=== PATIENT | female | born 1945 | race Caucasian/White ===

== ENCOUNTER 2016-12-25 12:36 | Inpatient (IN) ==
[2016-12-25 13:21] LABS: MANUAL DIFF NEEDED? NO
[2016-12-25 13:28] LABS: BASO% 0.1 % (0.0-0.8); EOS# 0.02 X1000 (0.0-0.7); EOS% 0.2 % (0.0-10.0); HEMATOCRIT 40.5 % (37.0-47.0); HEMOGLOBIN 13.1 g/dL (12.0-16.0); LYMPH% 13.7 % (20.5-51.1); MCH 27.6 PG (27-31); MCHC 32.3 g/dL (33-37); MCV 85.4 FL (81-99); MONO# 0.77 X1000 (0.11-0.59); MONO% 8.8 % (1.7-9.3); MPV 10.8 FL (7.4-10.4); NEUT% 77.2 % (42.2-75.2); PLT 238 X1000 (130-400); RBC 4.74 XMIL (4.2-5.4)
[2016-12-25 13:38] LABS: INR 1.14; PROTIME 12.1 Seconds (9.2-11.7); PTT 31.3 Seconds (22.0-36.0)
[2016-12-25 14:01] LABS: ALBUMIN 3.4 g/dL (3.5-5.0); CALCIUM 9.5 mg/dL (8.8-10.2); POTASSIUM 4.9 mmol/L (3.5-5.1); TOTAL BILIRUBIN 1.06 mg/dL (0.20-1.00); TOTAL PROTEIN 6.9 g/dL (6.3-8.3)
[2016-12-25] MEDS ORDERED: PROTONIX IV ONE (14:50)
[2016-12-25] MEDS ORDERED: BENADRYL IV ONE (14:50)
[2016-12-25] MEDS ORDERED: SOLU-MEDROL IV ONE (14:50)
[2016-12-25 15:10] LABS: MANUAL DIFF NEEDED? NO
[2016-12-25] MEDS: SODIUM CHLORIDE 0.9% INJ ONE (15:10)
[2016-12-25 15:19] LABS: BASO% 0.1 % (0.0-0.8); EOS# 0.03 X1000 (0.0-0.7); EOS% 0.3 % (0.0-10.0); HEMATOCRIT 37.9 % (37.0-47.0); HEMOGLOBIN 12.6 g/dL (12.0-16.0); IMM GRAN# 0.03 X1000 (0.0-0.04); IMM GRAN% 0.3 % (0.0-0.5); LYMPH# 1.39 X1000 (1.2-3.4); LYMPH% 14.7 % (20.5-51.1); MCH 28.3 PG (27-31); MCHC 33.2 g/dL (33-37); MCV 85.2 FL (81-99); MONO# 0.84 X1000 (0.11-0.59); MONO% 8.9 % (1.7-9.3); MPV 11.1 FL (7.4-10.4); NEUT% 75.7 % (42.2-75.2); PLT 274 X1000 (130-400); RBC 4.45 XMIL (4.2-5.4)
[2016-12-25 15:31] LABS: URINE SOURCE CLEAN CATCH
[2016-12-25 15:38] LABS: URINE MICRO REVIEW NEEDED? YES
[2016-12-25 15:39] LABS: BILIRUBIN URINE SMALL (NEGATIVE); BLOOD URINE NEGATIVE (NEGATIVE); COLOR YELLOW; GLUCOSE URINE 150 mg/dL (NEGATIVE); LEUKOCYTES URINE LARGE (NEGATIVE); NITRITE URINE NEGATIVE (NEGATIVE); PROTEIN URINE 50 mg/dL (NEGATIVE); SP GRAVITY URINE 1.024; TURBIDITY URINE HAZY (CLEAR); UR EPITHELIAL CELLS <10 /HPF (<10); URINE BACTERIA 2+ /HPF; URINE CULTURE NEEDED? YES; URINE RBC <10 /HPF (<10); URINE WBC TNTC /HPF (<10); UROBILINOGEN URINE 2 mg/dL (NORMAL)
[2016-12-25 15:54] LABS: AMYLASE 38 U/L (20-200); LIPASE 13 U/L (13-60)
[2016-12-25 16:00] LABS: URINE CASTS NONE SEEN
--- NOTE | 2016-12-25 16:35 | Diag Imaging Result Doc PS360 ---
CT ABD/PELVIS W/ IV CONT ONLY - 12/25/2016 INDICATION: ABD PX TECHNIQUE: A CT dose reduction protocol was used. COMPARISON: CT chest 03/29/2016 FINDINGS: No significant infiltrates in the lung bases. There is a gigantic ventral hernia with most all of the bowel contents in a low hernia sac extending to the patient's knees. There is significant subcutaneous superficial soft tissue edema throughout this area compatible with panniculitis. No definite bowel obstruction or inflammation. No intraperitoneal free air or free fluid. 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 There are small bilateral renal cysts. There are apparent cholecystectomy changes. There are rectal resection changes. Urinary bladder and uterus are normal. There is severe degeneration throughout the spine and pelvis. IMPRESSION: 1. Gigantic hiatal hernia with all the bowel in the ventral hernia sac. 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 2. 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 Electronically signed by Hector Palma 12/25/2016 4:33 PM
[2016-12-25] MEDS ORDERED: MEFOXIN 2 GM/NS 2 GM/50 ML IVPB IV ONE (17:16)
[2016-12-25] MEDS ORDERED: NS 1,000 ML IV ONE (17:18)
--- NOTE | 2016-12-25 17:30 | PROVIDER DOCUMENTATION ---
This chart was entered by Selin Mancini Scribe, acting as scribe for Ludwig Pichardo MD. HPI-Abdominal Pain/GI Problem - General Chief Complaint: GI Bleed Stated Complaint: ABD PAIN/BLEEDING Time Seen by Provider: 12/25/16 14:08 Source: patient Allergies/Adverse Reactions: Patient Allergies Allergy/AdvReac Type Severity Reaction Status Date / Time Iodinated Contrast Media - Allergy RASH Verified 12/25/16 14:32 Oral and [IV Dye] Home Medications: Home Medication List Medication Instructions Recorded Confirmed Last Taken Type Aspirin 81 mg PO DAILY 03/28/16 12/25/16 11/15/16 History Atorvastatin Calcium [Lipitor] 40 mg PO DAILY 03/28/16 12/25/16 11/15/16 History Cholecalciferol (Vitamin D3) 5,000 unit PO DAILY 03/28/16 12/25/16 11/15/16 History [Vitamin D3] Cyanocobalamin/FA/Pyridoxine 1 each PO DAILY 03/28/16 12/25/16 11/15/16 History [Folbic Tablet] Fenofibrate [Tricor] 145 mg PO DAILY 03/28/16 12/25/16 11/15/16 History Glimepiride 4 mg PO BID 03/28/16 12/25/16 11/15/16 History Iron,Carbonyl/Ascorbic Acid [Fe C 1 each PO DAILY 03/28/16 12/25/16 11/15/16 History Tablet] Levothyroxine [Synthroid] 0.2 mg PO DAILY 03/28/16 12/25/16 11/15/16 History Metformin [Glucophage] 500 mg PO BID CC 03/28/16 12/25/16 11/15/16 History Multivitamins/Minerals [Centrum 1 each PO DAILY 03/28/16 12/25/16 11/15/16 History Silver] Enoxaparin [Lovenox] 110 mg SUBQ Q12H #24 syringe 04/17/16 12/25/16 11/15/16 Rx Insulin Detemir [Levemir] 35 unit SUBQ BID #0 insuln.pen 04/17/16 12/25/1611/15 Rx Albuterol Sulfate Inhaler 2 puff INH Q6H PRN PRN 11/15/16 12/25/16 11/15/16 History [Ventolin Hfa] Apixaban [Eliquis] 5 mg PO DAILY 11/15/16 12/25/16 11/15/16 History Azithromycin [Zithromax Z-Hi] 250 mg PO DIRECTED #1 pkg 11/15/16 12/25/16 Unknown Rx Cyanocobalamin/FA/Pyridoxine 1 each PO QHS 11/15/16 12/25/16 11/15/16 History [Folbic Tablet] Fluticasone 50 Mcg Nasal [employer] 1 spray TASHIA PRN PRN 11/15/16 12/25/16 11/15/16 History [Flonase] Furosemide [Lasix] 40 mg PO DAILY #30 tablet 11/15/16 12/25/16 Unknown Rx [place]-3 Fatty Acids [Fish Oil] 1,000 mg PO BID 11/15/16 12/25/16 11/15/16 History Metoprolol [Lopressor] 12.5 mg PO DAILY 12/25/16 12/25/16 Unknown History - History of Present Illness-ABD Nature of Presenting Problems: 71 Y/O F present to the ER with the complain of abd bleeding started yesterday. pt states that she has large hernia with ileostomy that they think is draining blood. pt states that she had lower abd cramping. pt states that she is on blood thinner medication. pt denies any other symptoms. Abdominal Pain Onset Location: reports: other (stomach bleeding) Quality of Pain: reports: cramping (lower abd) Onset/Duration: reports: 2 days ago Associated Symptoms: reports: other (abd cramps) Review of Systems - Adult - REVIEW OF SYSTEMS - ADULT Constitutional: reports: no symptoms reported Eyes: reports: no symptoms reported Ears, Nose, Mouth & Throat: reports: no symptoms reported Cardiovascular: reports: no symptoms reported Respiratory: reports: no symptoms reported Gastrointestinal: reports: abdominal pain, other (stomach bleeding and hernia). denies: diarrhea, vomiting Genitourinary: reports: no symptoms reported Musculoskeletal: reports: no symptoms reported Integumentary: reports: no symptoms reported Neurological: reports: no symptoms reported Psychiatric: reports: no symptoms reported Endocrine: reports: no symptoms reported Hematologic/Lymphatic: reports: no symptoms reported Allergic/Immunologic: reports: no symptoms reported All Other Systems: Reviewed and Negative Past History - Adult - PAST MEDICAL HISTORY-ADULT Review of Records: reports: Old Records Reviewed, Nursing Assessment Review Major Childhood Illnesses: reports: denies history Cardiovascular: reports: blood clots (dvt), HTN, hyperlipidemia Respiratory: reports: denies history Gastrointestinal: reports: GERD, other (hernia, stoma) Obstetrical/Gynecological: reports: denies history Genitourinary: reports: denies history Musculoskeletal: reports: denies history Neurological: reports: other (diabetic neuropathy) Endocrine/Immune: reports: Diabetes Other Conditions: reports: denies history - PRIOR SURGERIES/PROCEDURES Surgical/Procedure History: reports: tonsillectomy, hernia repair, bowel surgery (multiple), other (ileostomy) - PRIOR HOSPITALIZATIONS Prior Hospitalizations: reports: for other non-related - IMMUNIZATION STATUS Childhood Immunizations: See Nurse Assessment Flu Vaccine: See Nurse Assessment - FAMILY HISTORY Family History: reviewed, not pertinent Physical Exam-General - PHYSICAL EXAM-ADULT Initial Vital Signs Reviewed: Yes - CONSTITUTIONAL General Appearance: appears well, alert - EYES Eyes: pale conjunctivae. negative: conjuctival exudate - HEAD, EARS, NOSE, MOUTH & THROAT HENMT: moist mucous membranes, TMs normal - NECK Neck: non-tender, full range of motion, supple - RESPIRATORY Respiratory: lungs clear, normal breath sounds - CARDIOVASCULAR Cardiovascular: regular rate, rhythm, no edema - GASTROINTESTINAL (ABDOMEN) Abdominal Exam: non tender, soft, hernia, other (stomach bleeding snf loer abd cramping) - MUSCULOSKELETAL Back Exam: no CVA tenderness, no vertebral tenderness Extremity: no pedal edema, no calf tenderness - SKIN Integumentary: normal color, normal turgor, warm/dry - NEUROLOGIC Neurologic: grossly normal, no motor/sensory deficits - PSYCHIATRIC Psych/Mental Status: normal mood/affect, normal thought content, normal thought process, oriented x 3 Progress - PLAN OF CARE/RESULTS Progress/Plan/Lab Results: Vital Signs - 8 hr 12/25/16 12:48 Temperature 98.2 F Pulse Rate 90 Respiratory Rate 20 Blood Pressure 140/63 O2 Sat by Pulse Oximetry 96 Laboratory Results - last 24 hr 12/25/16 12/25/16 12/25/16 13:05 13:05 13:05 WBC 8.76 RBC 4.74 Hgb 13.1 Hct 40.5 MCV 85.4 MCH 27.6 MCHC 32.3 L RDW Std Deviation 14.7 H Plt Count 238 MPV 10.8 H Immature Gran % (Auto) 0.0 Neut % (Auto) 77.2 H Lymph % (Auto) 13.7 L [place] % (Auto) 8.8 Eos % (Auto) 0.2 Baso % (Auto) 0.1 Immature Gran # (Auto) 0.00 Neut # (Auto) 6.76 H Lymph # (Auto) 1.20 Pitt # (Auto) 0.77 H Eos # (Auto) 0.02 Baso # (Auto) 0.01 PT 12.1 H INR 1.14 PTT (Actin FS) 31.3 Sodium 135 L Potassium 4.9 Chloride 95 L Carbon Dioxide 26 Anion Gap 14 BUN 35 H Creatinine 1.3 H Estimated GFR/1.73 m2 40 BUN/Creatinine Ratio 27 Glucose 286 H Calculated Osmolality 288 Calcium 9.5 Total Bilirubin 1.06 H AST 21 ALT 13 Alkaline Phosphatase 47 Total Protein 6.9 Albumin 3.4 L Globulin 3.5 Albumin/Globulin Ratio 1.0 Blood Type Antibody Screen 12/25/16 13:05 WBC RBC Hgb Hct MCV MCH MCHC RDW Std Deviation Plt Count MPV Immature Gran % (Auto) Neut % (Auto) Lymph % (Auto) Pitt % (Auto) Eos % (Auto) Baso % (Auto) Immature Gran # (Auto) Neut # (Auto) Lymph # (Auto) Pitt # (Auto) Eos # (Auto) Baso # (Auto) PT INR PTT (Actin FS) Sodium Potassium Chloride Carbon Dioxide Anion Gap BUN Creatinine Estimated GFR/1.73 m2 BUN/Creatinine Ratio Glucose Calculated Osmolality Calcium Total Bilirubin AST ALT Alkaline Phosphatase Total Protein Albumin Globulin Albumin/Globulin Ratio Blood Type O NEGATIVE Antibody Screen NEGATIVE Orders Category Date Time Status Saline Loc DIRECTED Care 12/25/16 14:26 Active NPO Diet 12/25/16 14:[address] ABD/PELVIS W/ IV CONT ONLY [CT] Stat Exams 12/25/16 14:27 Ordered AMYLASE [CHEM] Stat Lab 12/25/16 14:26 Uncollected CBC WITH ELECTRONIC DIFF [HEME] Stat Lab 12/25/16 13:05 Completed CBC WITH ELECTRONIC DIFF [HEME] Stat Lab 12/25/16 14:26 Uncollected COMPREHENSIVE METABOLIC PANEL [CHEM] Stat Lab 12/25/16 13:05 Completed LIPASE [CHEM] Stat Lab 12/25/16 14:26 Uncollected OCCULT BLOOD SCREENING [STOOL] Stat Lab 12/25/16 14:26 Uncollected PROTIME WITH INR [COAG] Stat Lab 12/25/16 13:05 Completed PTT [COAG] Stat Lab 12/25/16 13:05 Completed TYPE & SCREEN [BBK] Stat Lab 12/25/16 13:05 Completed URINALYSIS W/POSS RFLX CULT-1 [URINALYSIS] Stat Lab 12/25/16 14:26 Uncollected Result Diagrams: 12/25/16 15:02 12/25/16 13:05 - REASSESSMENT Reassessment #1 Time Reassessed: 17:27 (although pt stating some mild discomfort it is intermittent i spent about 10 min at the bedside with pt and son expressing to them the importance of not eating however they insist she needs to eat i requested that we wait to see the surgeon first however family is insistent on having her eat pt will check pts blood sugar an maintain npo for now. surgeon dr mccormack will come to the bedside to also discuss with the family i handed off care for admission to hospitalist service will be accepted by dr begum. i dw with admitting livestock counter that pt does not want to adhere to npo requests and that she should be seen quickly. 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 - CONSULTS/PCP/HOSPITALIST Notification #1 *Consult/PCP/Hospitalist*: Dr. Mccormack Time Discussed: 17:12 Reason/Comments: Dr. Pichardo consulted about pt to Dr. Mccormack #2 Consult: Dr. Begum Time Discussed: 17:21 Reason/Comments: Dr. Pichardo discussed about the Pt to Consult Disposition: Admit Departure - Departure Date of Disposition Decision: 12/25/16 Time of Disposition Decision: 17:29 DIAGNOSIS: Small bowel ischemia Disposition: ADMITTED INPATIENT 09 Certified Medical Emergency: Emergent Condition: Fair Referrals and Follow-Ups: None,PCP [Primary Care Provider] - - Critical Care Note This patient required my direct & personal management of CC.: Yes Total Time (mins): 75 Critical Care Statement: This patient required my direct personal management to treat or rule out processes, the absence of which, could potentiallly result in sudden, clinically significant life or limb threatening deterioration. This chart was documented by the indicated scribe, (Selin Mancini Scribe) and accurately reflects the services I performed and decisions made by me, Ludwig Pichardo MD, as attested by the provider's signature.
--- NOTE | 2016-12-25 20:01 | HISTORY AND PHYSICAL ---
HISTORY OF PRESENT ILLNESS: This is a 71-year-old who stayed for 2 days who has had some pain around her right-sided ileostomy and then she noted ileostomy bag with dark blood. She really does not report any fever or chills, although she says she has been cold, I think it is mainly the pain and the blood in the ileostomy bag. Son was there. He says at least 2 previous time she has had a ruptured small bowel. This was after the ileostomy. She has had a total colectomy because of ulcerative colitis. I see where she was admitted with altered mental status back in March 2016. PAST MEDICAL HISTORY: 1. Hypertension. 2. Hyperlipidemia. 3. Gastroesophageal reflux disease. 4. Diabetes mellitus. 5. Diabetic neuropathy. 6. Abdominal hernia. 7. Thyroid disease. 8. Deep venous thrombosis. PAST SURGICAL HISTORY: 1. Tonsillectomy. 2. Hernia repair. 3. Multiple bowel surgeries. 4. Ileostomy. Patient received ileostomy after total colectomy for ulcerative colitis. SOCIAL HISTORY: Patient lives by herself. She does have attentive family. She is able to get around and walk and live independently. FAMILY HISTORY: Positive for emphysema, heart disease, father of heart attack, asthma in mother. Two of her brothers have heart disease and heart attack. ALLERGIES: Patient reports no known drug allergies. REVIEW OF SYSTEMS: General: Did not report any weight gain or loss. No fever or chills. HEENT: Unremarkable. Respiratory: No increased work of breathing or dyspnea. Cardiovascular: No chest pain or tachy palpitation. GI/: The pain around the right lower quadrant around her ileostomy bag and the dark stool. She was concerned last 2 days that she was getting obstruction. There was not as much flow through the ileostomy bag. PHYSICAL EXAMINATION: VITAL SIGNS: Temperature 98.2 degrees, pulse 90, respirations 18, blood pressure 165/90. HEENT: Pupils equal, round. LUNGS: Clear in all lung miller. CARDIOVASCULAR: Regular rhythm and rate without murmur or S3. ABDOMEN: Soft. SKIN: Warm and dry. Weight 243 pounds. Height 5 feet 4 inches. LABORATORY: White blood cell count 9460, hematocrit 37, platelet count 274,000. Sodium 135, potassium 4.09 chloride 95, BUN 35, creatinine 1.3. Calcium 9.5, AST 21, ALT 13, alkaline phos 47, albumin 3.4, ProTime 12.1, PTT is 31. Urinalysis: Wdk-zeubimtd-ca-count white blood cells, less than 10 red blood cells. IMAGING: Abdominal and pelvic CT: Gigantic hiatal hernia with all the bowel in the ventral hernia sac. Significant overlying panniculitis in this area and severe mesenteric artery vascular disease, probable stenosis. The bowel contents and in the lower sac extend to the patient's knees there is significant subcutaneous superficial soft tissue edema throughout the area compatible with panniculitis. No definite bowel obstruction or inflammation. No intraperitoneal free air. There is advanced vascular disease. Superior mesenteric artery, moderate to severe stenosis way up in the hernia sac. There are small bilateral renal cysts. She apparently had a cholecystectomy. They are rectal resection changes noted. Urinary bladder and uterus are normal. Severe degeneration through the spine and pelvis. ASSESSMENT AND PLAN: 1. Abdominal pain, large hiatal hernia, ventral hernia. Not definitive blockage at this point. Ask General Surgery. Dr. Shayne Duggan will evaluate. I do not know if there is anything surgical needs to be done at this point. She is not hurting and requesting food. We are going to hold off on that. 2. Morbid obesity. Large ventral hernia and panniculitis. I think we need to put her on antibiotics. 3. She has too numerous to count white blood cells. She has not been symptomatic per se. But we are going to put her on antibiotics for the panniculitis as well. 4. Ulcerative colitis, status post total colectomy with ileostomy bag and blood in the ileostomy. 5. Apparently recent atrial fibrillation. Dr. Crawford is following her. She is on Eliquis. I think we are going to have to hold that at this point as we debate whether she is going to require invasive surgery. 6. Diabetes mellitus type 2 with diabetic neuropathy. 7. History of thyroid disease. Primary hypothyroidism. We will check a T4 and TSH. 8. Hypertension. 9. History of deep venous thrombosis. Apparently, she has had multiple bowel surgeries and small bowel obstruction in the past. 10. Review of her laboratory, hematocrit is stable at 37. Electrolytes unremarkable. Liver functions unremarkable. Renal function: Creatinine 1.3. Looking back at her creatinines, I think baseline is 0.8. She runs around 0.8-1. We will give her normal saline. I think we better run it in about 125 mL an hour. cc: Jose Cruz Begum MD
[2016-12-25] MEDS ORDERED: FLONASE NAS PRN (20:03)
[2016-12-25] MEDS ORDERED: TYLENOL PO PRN (20:03)
[2016-12-25] MEDS ORDERED: VENTOLIN HFA INH PRN (20:03)
[2016-12-25] MEDS ORDERED: ZOFRAN IV PRN (20:03)
[2016-12-25] MEDS ORDERED: SODIUM CHLORIDE 0.9% INJ PRN (20:03)
[2016-12-25] MEDS: PROTONIX 80 MG in NS 80 ML IV SCH (22:52)
[2016-12-25] MEDS: NS 1,000 ML IV SCH (22:53)
[2016-12-25] MEDS: LEVEMIR SUBQ SCH (22:53)
[2016-12-25] MEDS: HUMULIN R SUBQ SCH (22:53)
[2016-12-25] MEDS: ZOSYN 3.375 GM/NS 3.375 GM/50 ML IVPB IV SCH (23:01)
[2016-12-26 05:11] LABS: MANUAL DIFF NEEDED? NO
[2016-12-26] MEDS: ZOSYN 3.375 GM/NS 3.375 GM/50 ML IVPB IV SCH ×4 (05:12→22:32)
--- NOTE | 2016-12-26 05:25 | CONSULTATION ---
DATE OF CONSULTATION: 12/25/2016 HISTORY OF PRESENT ILLNESS: A 71-year-old female with multiple medical issues. From a surgical standpoint, she has a very complicated history. She has had a total colectomy with end ileostomy 20+ years ago in her early 40s. She has developed complications related to that requiring bowel resections from incarcerated hernias and multiple, at least 2, excised bowel resections. She has had now a very large loss of domain peristomal hernia with an ileostomy within the hernia itself. She has had skin issues related to panniculitis in the past, but has been doing okay over last couple of days. She said Friday, she begin to feel full in her epigastrium. She made herself NPO. She, over the last 24 hours, developed bloody ostomy output, kind of dark maroon coffee- ground. Her son was notified and he brought her to the emergency department. A CT scan was obtained that showed no real acute findings other than a large hernia and edema in the abdominal wall. She has been hemodynamically stable in the emergency department and hematocrit checked x2 has been stable. She states she has been urinating normally. Mental status has been fine. She is not really feeling dizzy. PAST MEDICAL HISTORY: 1. Diabetes. 2. History of DVT and pulmonary embolus, on chronic anticoagulation with Eliquis. 3. She also has chronic urinary tract infections. 4. History of pneumonia. 5. Ulcerative colitis. 6. Hypertension. 7. Recent bradycardia and has been evaluated by Dr. Crawford. PAST SURGICAL HISTORY: She had total colectomy with end ileostomy and then multiple operations for complications associated with this concluding bowel resections that has left her with a loss of domain hernia. SOCIAL HISTORY: [place]. Her son is nearby and looks over her but he does not live with her. No tobacco, alcohol or drugs. MEDICATIONS: She does take Eliquis for DVTs. REVIEW OF SYSTEMS: Otherwise 10-point negative other than what is mentioned in the HPI. She denies any NSAID use. PHYSICAL EXAMINATION: Vital Signs: Temperature is 98.2 degrees. Pulse has been in the 90s but on my exam at this time, it was 60s to 70s. Blood pressure is 158/83, O2 saturation 94% on room air. Weight is 243 pounds, 5 feet 4 inches. General: She is alert, sitting in chair in no acute distress. HEENT: No scleral icterus. Abdomen: There is a large panniculus with a very large loss of domain hernia that extends mostly to the right side of midline. On the very apex of this, is an ostomy appliance with an ileostomy. The mucosa, what can be visualized is pink. The stool is, for the most part, brown but there is a maroon-like coffee-ground discoloration to it. Integument: Otherwise warm and dry. I do not see that there is some lower extremity edema. On the abdominal wall, there are no skin changes. It is chronically thickened but it is not red. DIAGNOSTIC DATA: White count 9, hematocrit 37.9, it was 40.8 on arrival. Platelets 274,000. INR is 1.14. Sodium is 135. Creatinine is 1.3, this is near baseline, this is what it was a couple of weeks ago. Bilirubin is 1.06. Transaminases are normal. Albumin is 3.5, lipase 13. Leukocytes are large. There is glucose in her urine. CT scan confirms a very large loss of domain with edema of the abdominal wall. There is calcific disease in the celiac and SMA distribution but flow is maintained here. No free air or free fluid. No evidence of bowel obstruction or other masses. ASSESSMENT/PLAN: This is a 71-year-old female with a large loss of domain hernia, history of ulcer colitis now with a gastrointestinal bleed. From a surgical standpoint, any abdominal operation would be catastrophic and likely unsurvivable. She would not tolerate hernia repair and this would require complete abdominal wall reconstruction and she would not be a good candidate for this. Regarding her gastrointestinal bleed, I suspect that this is complicated by her Eliquis and is likely upper gastrointestinal in origin given the appearance of her hematochezia. She has had some epigastric fullness. Would recommend treating her with: 1. Antibiotics for her urinary tract infection with Zosyn. 2. Would recommend starting at least b.i.d. proton pump inhibitor intravenously if not proton pump inhibitor drip with Carafate. I would recommend strict nothing by mouth. I would also engage Gastroenterology medicine. If she were to continue to bleed, she will need upper endoscopy. I think a scope through her ostomy would be wrought with complication and be very difficult and unrevealing, but I do suspect that if there is a lesion causing this, it would be more gastric or duodenal in etiology and this may ultimately need to be looked at. I have discussed the plan in detail and at length for greater than 30 minutes with the son and the patient. I do not see any changes to the skin of the abdominal wall and her ostomy appears well perfused. Speaking with her, she does not give a classic history for chronic mesenteric ischemia and I think this is an incidental finding. Lactic acid is pending but will follow this, and I do not think this contributes to her acute process right now. Will continue to follow along. Plans are being made to admit to the medicine service. Recommend engaging Gastroenterology medicine as well to be on board for possible esophagogastroduodenoscopy. Of note, her son does have a history of Helicobacter pylori and brought this to our attention as possible that treating empirically for this, but we can check the non-endoscopic testing for this as well to confirm or refute. cc: Niles Duggan MD
[2016-12-26 05:27] LABS: EOS# 0.01 X1000 (0.0-0.7); EOS% 0.2 % (0.0-10.0); HEMATOCRIT 34.6 % (37.0-47.0); HEMOGLOBIN 11.2 g/dL (12.0-16.0); LYMPH# 1.13 X1000 (1.2-3.4); LYMPH% 18.4 % (20.5-51.1); MCH 27.7 PG (27-31); MCHC 32.4 g/dL (33-37); MCV 85.4 FL (81-99); MONO# 0.53 X1000 (0.11-0.59); MONO% 8.6 % (1.7-9.3); MPV 11.3 FL (7.4-10.4); NEUT% 72.8 % (42.2-75.2); PLT 243 X1000 (130-400); RBC 4.05 XMIL (4.2-5.4)
[2016-12-26 05:29] LABS: INR 1.11; PROTIME 11.7 Seconds (9.2-11.7); PTT 29.7 Seconds (22.0-36.0)
[2016-12-26 05:46] LABS: ALBUMIN 3.2 g/dL (3.5-5.0); CALCIUM 8.7 mg/dL (8.8-10.2); MAGNESIUM 1.8 mg/dL (1.5-2.7); POTASSIUM 4.4 mmol/L (3.5-5.1); TOTAL BILIRUBIN 0.6 mg/dL (0.20-1.00); TOTAL PROTEIN 5.6 g/dL (6.3-8.3)
[2016-12-26 06:41] LABS: FERRITIN 87 ng/mL (13-150); FREE T4 1.32 ng/dL (0.93-1.70)
[2016-12-26] MEDS: PROTONIX 80 MG in NS 80 ML IV SCH (08:09)
[2016-12-26] MEDS: SYNTHROID IV SCH (08:11)
[2016-12-26] MEDS: HUMULIN R SUBQ SCH ×4 (08:11→22:30)
[2016-12-26] MEDS: NS 1,000 ML IV SCH ×3 (08:13→22:29)
--- NOTE | 2016-12-26 08:42 | PROGRESS NOTE ---
DATE: 12/26/2016 SUBJECTIVE: Ms. Zimmerman says she feels fine, not hurting anywhere. Content in the ileostomy bag does not appear to be maroon; it appears to be a more normal color. She is requesting ice chips and requesting food. OBJECTIVE: Vital signs: Temperature is 97.7 degrees, pulse 74, respirations 18, blood pressure 156/73. Lungs: Clear in all lung miller. Cardiovascular exam: Regular rhythm and rate without murmur or S3. Abdomen: Soft. Skin: Warm and dry. Weight: 242 pounds. : Urine output 1200 mL. LAB: White count 6150, hematocrit 34, platelet count 243,000. Sodium 136, potassium 4.4, chloride 98. BUN 34, creatinine 1.4. Blood sugar 301, 209 and 231. ASSESSMENT AND PLAN: 1. A large loss of domain hernia, history of ulcerative colitis. Ulcerative colitis now with gastrointestinal bleed. From a surgical standpoint, any operation would be catastrophically and unlikely unsurvivable, would not tolerate hernia repair and require complete abdominal wall reconstruction, which she is not a good candidate. So continue antibiotics. I suspect the bleeding may be coming from the stomach or duodenum. We will keep her on a proton pump inhibitor, and we will give her some Carafate. We will get gastroenterology medicine to see if an upper esophagogastroduodenoscopy is going to be necessary. 2. Pain around the ileostomy and some panniculitis. Less tender now and is not hurting. I suspect she experiences some torsion in that small bowel at times. We will continue intravenous antibiotics. She is on a Protonix drip now. I understand that we are out of Protonix and there is a limited supply. We will see if we can stop the Protonix drip and just do the Protonix 40 mg intravenous every 12 hours. Put her on some clear liquids and ice chips. Continue intravenous fluids right now at 125. I think I will cut them down to 85 mL an hour. 3. Diabetes mellitus type 2. We will follow pattern sugars. cc: Jose Cruz Begum MD
[2016-12-26] MEDS ORDERED: INSULIN PEN NEEDLES ONE (09:32)
[2016-12-26] MEDS: LEVEMIR SUBQ SCH ×2 (09:34→22:30)
--- NOTE | 2016-12-26 10:13 | PROGRESS NOTE ---
DATE: 12/26/2016 SUBJECTIVE: Feels well. No more bleeding. Ostomy continues to function normally. OBJECTIVE: Vital Signs: Temperature is 97.7 degrees, pulse 74, blood pressure 156/73. Oxygen saturation 98% on room air. General: She is alert, in no acute distress. Ostomy is pink, viable. No significant erythema of her panniculus. Some bilious colored stool in the bag. No blood. LABORATORY DATA: White count 6, hematocrit down to 34, platelets are 243,000, creatinine is 1.1. Glucose 209. ASSESSMENT/PLAN: This is a 71-year-old female with multiple medical issues, a large hernia, presented with gastrointestinal bleed. Suspect upper GI in origin. This is resolved with PPI drip overnight and Carafat, zosyn for a urinary tract infection. Continue to follow her along. If she were to rebleed, she will need upper endoscopy. Briefly mentioned this doctor Dr. Dawkins. He is waiting. Need to make a decision about her Eliquis. Would recommend holding this. If it is purely some questionable history of hypercoagulable disorder and DVT, she is seen by Dr. Santos in the past, may be worthwhile getting her to weigh in on the role of this, as is I think it was soft indication previously, and there is also some question of atrial fibrillation. Will continue to follow along. cc: Niles Duggan MD [facility]
[2016-12-26] MEDS: PROTONIX IV SCH (22:29)
[2016-12-27] MEDS: ZOSYN 3.375 GM/NS 3.375 GM/50 ML IVPB IV SCH ×4 (05:49→22:36)
[2016-12-27] MEDS: SYNTHROID IV SCH (06:24)
[2016-12-27] MEDS: HUMULIN R SUBQ SCH ×4 (06:24→20:35)
--- NOTE | 2016-12-27 08:55 | PROGRESS NOTE ---
DATE: 12/27/2016 SUBJECTIVE: She feels much better. No abdominal pain. She is tolerating liquids well. The color of the liquid stool in her ileostomy bag is a little humanities coordinator. I do not see any gross blood. The area around the ileostomy, the panniculitis, seems to be less intense and irritated. PAST MEDICAL HISTORY: 1. hypertension. 2. Hyperlipidemia. 3. Gastroesophageal reflux disease. 4. Diabetes mellitus. 5. Diabetic neuropathy. 6. Large abdominal ventral hernia. 7. Thyroid disease or hypothyroidism. 8. She has had a history of deep venous thrombosis. PHYSICAL EXAM: Vital Signs: On exam today she is afebrile with temp 97.5 degrees, pulse 66, respirations 20, blood pressure 161/82. Lungs: Clear in all lung miller. Cardiovascular exam: Regular rhythm and rate without murmur or S3. Abdomen: Soft. Skin: Warm and dry. : Urine output 700 mL. LAB: Reviewed from yesterday: Hematocrit stable at 34. Blood sugars 231, 232 and then 74. ASSESSMENT AND PLAN: 1. Large loss of domain hernia, history of ulcerative colitis, status post total colectomy and end ileostomy. She has had multiple operations in [place], which left her with this large loss of domain hernia. A scope through the ostomy would be fraught with lots of complications, very difficult and probably unrevealing. There is question on whether esophagogastroduodenoscopy should be done. I think at this point we will continue proton pump inhibitor and probably continue Carafate. We will advance her to a soft gastrointestinal diet. If she continues to bleed, we will need to pursue upper endoscopy. 2. The question of blood thinner. Apparently she has had lots of trouble with venous insufficiency and lower extremity blood clots. At this point, we are holding the blood thinner, but I think we are going to want to probably restart it, and she probably will be on proton pump inhibitors with that for an extensive period of time. If we have further bleeding, I think we will have to make that hard decision of stopping the blood thinner. She was on Coumadin for awhile and that was very difficult for them. She is on Eliquis now, just 5 mg daily. We will continue to hold that for now. Advance her to soft gastrointestinal diet. She is getting Protonix 40 mg intravenous every 12 hours right now, and we will put her on Carafate 1 g 4 times a day. We will check the ileostomy for blood. 3. Morbid obesity. 4. Diabetes mellitus type 2. Continue pattern sugars. Sliding scale. 5. History of hypertension. Blood pressure well controlled. 6. History of hypothyroidism. Appears to be euthyroid. cc: Jose Cruz Begum MD
[2016-12-27] MEDS: LEVEMIR SUBQ SCH ×2 (09:00→20:35)
[2016-12-27] MEDS: CARAFATE PO SCH ×4 (09:00→20:35)
[2016-12-27] MEDS: NS 1,000 ML IV SCH ×2 (11:45→22:35)
[2016-12-27] MEDS: PROTONIX IV SCH ×2 (11:46→22:36)
[2016-12-27] MEDS: SODIUM CHLORIDE 0.9% INJ ONE (11:46)
--- NOTE | 2016-12-27 18:04 | PROGRESS NOTE ---
DATE: 12/27/2016 SUBJECTIVE: No events. It does not sound like any bleeding overnight. OBJECTIVE: Vital signs: She is afebrile. No tachycardia. Blood pressure 152/66. Oxygen saturation 97% on room air. General: She is alert in no acute distress. She was getting a bath this morning. LABORATORY DATA: Glucose 165. ASSESSMENT AND PLAN: This is a 71-year-old female with large loss of domain hernia in the ileostomy presenting with a GI bleed. It appears to have clinically resolved. She remains hemodynamically stable. Will continue to follow along. If she develops rebleeding, she will need an EGD from above. Will continue to monitor her hematocrit. cc: Niles Duggan MD
[2016-12-28] MEDS: ZOSYN 3.375 GM/NS 3.375 GM/50 ML IVPB IV SCH ×4 (04:29→22:09)
[2016-12-28 05:16] LABS: MANUAL DIFF NEEDED? NO
[2016-12-28 05:18] LABS: BASO% 0.6 % (0.0-0.8); EOS# 0.44 X1000 (0.0-0.7); EOS% 8.9 % (0.0-10.0); HEMATOCRIT 32.9 % (37.0-47.0); HEMOGLOBIN 10.6 g/dL (12.0-16.0); LYMPH# 1.28 X1000 (1.2-3.4); LYMPH% 25.9 % (20.5-51.1); MCH 27.8 PG (27-31); MCHC 32.2 g/dL (33-37); MCV 86.4 FL (81-99); MONO# 0.62 X1000 (0.11-0.59); MONO% 12.5 % (1.7-9.3); MPV 10.2 FL (7.4-10.4); NEUT% 52.1 % (42.2-75.2); PLT 261 X1000 (130-400); RBC 3.81 XMIL (4.2-5.4)
[2016-12-28 05:49] LABS: AGAP 9; BUN 14 mg/dL (8-22); CALCIUM 8.5 mg/dL (8.8-10.2); CHLORIDE 108 mmol/L (98-107); COSMO 287; POTASSIUM 3.4 mmol/L (3.5-5.1); SODIUM 145 mmol/L (136-145); TCO2 28 mmol/L (25-35)
[2016-12-28] MEDS: SYNTHROID IV SCH (06:22)
[2016-12-28] MEDS: HUMULIN R SUBQ SCH ×4 (06:35→20:47)
--- NOTE | 2016-12-28 08:26 | PROGRESS NOTE ---
DATE: 12/28/2016 SUBJECTIVE: Ms. Zimmerman states she is feeling better. She was putting a new ileostomy bag on. The area around the ventral hernia and ileostomy is much less red. She says she feels much better. She is tolerating a soft diet. No pain. No nausea. OBJECTIVE: Her temperature is 97.6 degrees, pulse 62, respirations 17, blood pressure 145/74. CVP less than 6 cm. Lungs are clear, anterolateral and posterior. Cardiovascular: Regular rhythm and rate without murmur or S3. Abdomen soft. Her ventral hernia and pendulum nontender. Ileostomy site looks good. Urine output 2600 mL. LABORATORY DATA: White count 4950, hematocrit 32, platelet count 261,000. Chemistries: Sodium 145, potassium 3.4, chloride 108. BUN 14, creatinine 0.9, blood sugar 335, 332, and 59. ASSESSMENT AND PLAN: 1. Large loss of domain hernia in the ileostomy presenting with gastrointestinal bleed that appears to be clinically resolving. Doing much better. She remains hemodynamically stable, comfortable. She is tolerating a soft diet. 2. Question of blood thinner, I think we will continue doing the Eliquis and restart it. I think she was just taking 5 mg once a day. She has had previous trouble with chronic venous insufficiency and deep venous thrombosis in the lower extremities. I do not think she will tolerate being off of the blood thinner. 3. Morbid obesity. 4. Diabetes mellitus, type 2. Sugar is under good control. 5. History of hypertension. 6. History of hypothyroidism. REVIEW OF LABORATORY DATA: They gave her a little bit of potassium. Blood count stable. Hematocrit 32. PLAN: Increase her activity, have her walk around some. Hopefully, we can get her home on Friday. We will watch her through today and tomorrow. She is on Carafate 1 g 4 times a day. I have her on Zosyn 3.375 mg IV q.6 hours. She had a little bit of panniculitis when she came in. I think I will continue that. She gets Synthroid 150 mcg daily, fluticasone and albuterol. cc: Jose Cruz Begum MD
[2016-12-28] MEDS ORDERED: INSULIN PEN NEEDLES ONE (08:27)
--- NOTE | 2016-12-28 08:27 | PROGRESS NOTE ---
DATE: 12/28/2016 OBJECTIVE: No events. She feels very well, no more bleeding, no pain. OBJECTIVE: Vital signs: No fevers, no tachycardia. Pulse in the 60s, blood pressure 145/75, oxygen saturation 97% on room air. General: She is alert. Abdomen: Panniculus and hernia are stable. Ostomy is pink, viable, with nonbloody stool in the bag. LABORATORY DATA: White count is 4, hematocrit is 32, and this has been stable. Creatinine is 0.9. Hematocrit was 34 previously. ASSESSMENT AND PLAN: 1. A 71-year-old female with a very large hernia and ileostomy. At this point, I think it would be reasonable to advance her diet. 2. I think she needs to be off anticoagulation for a period of time if this is felt safe from the hospitalist service. In regards to the DVT, we could repeat a lower extremity ultrasound to examine this to see if she has any residual thrombus, but if it is for atrial fibrillation, it may be reasonable to avoid, as GI bleed could be quite complicated in her going forward. If she were to rebleed, she most definitely would need an EGD to look for an upper GI source. Otherwise, she has resolved this quickly with PPI and Carafate therapy. Will continue to follow along. cc: Niles Duggan MD
[2016-12-28] MEDS: LEVEMIR SUBQ SCH ×2 (08:48→20:47)
[2016-12-28] MEDS: NS 1,000 ML IV SCH ×2 (08:48→22:09)
[2016-12-28] MEDS: CARAFATE PO SCH ×4 (08:49→20:47)
[2016-12-28] MEDS: PROTONIX IV SCH ×2 (10:58→22:08)
[2016-12-29] MEDS: ZOSYN 3.375 GM/NS 3.375 GM/50 ML IVPB IV SCH (04:35)
[2016-12-29] MEDS: SYNTHROID IV SCH (06:21)
[2016-12-29] MEDS: HUMULIN R SUBQ SCH ×4 (06:21→20:13)
[2016-12-29] MEDS ORDERED: SYNTHROID PO SCH (09:00)
[2016-12-29] MEDS: LIPITOR PO SCH (09:31)
[2016-12-29] MEDS: ICAR-C PO SCH (09:32)
[2016-12-29] MEDS: CENTRUM SILVER PO SCH (09:32)
[2016-12-29] MEDS: PROTONIX PO SCH ×2 (09:32→20:12)
[2016-12-29] MEDS: FOLTX PO SCH (09:32)
[2016-12-29] MEDS: CARAFATE PO SCH ×4 (09:32→20:12)
[2016-12-29] MEDS: ELIQUIS PO SCH (09:32)
[2016-12-29] MEDS: LEVEMIR SUBQ SCH ×2 (09:36→20:13)
[2016-12-29] MEDS: NS 1,000 ML IV SCH ×2 (09:36→20:12)
--- NOTE | 2016-12-29 09:56 | PROGRESS NOTE ---
DATE: 12/29/2016 SUBJECTIVE: Erasmo feels much better. She did slide down on the side of the bed yesterday but she said she did not hurt herself and she was fine. Did not know what all the fuss was about. The stool in her colostomy is brown, light brown and no sign of blood. OBJECTIVE: Vital signs: She remains afebrile, temp 98.5 degrees, pulse 70, respirations 18, blood pressure 146/63. Neck: CVP is less than 6 cm. Lungs: Clear in all lung miller. Cardiovascular: Regular rhythm and rate without murmur or S3. Abdomen: Soft. Large ventral hernia with ileostomy. We have her on a soft diet. I think we can advance it to a regular diet and see how we do. No sign of bleeding at this point. I suspect the bleeding was maybe some gastritis, possibly even peptic ulcer. LAB: Hematocrit is stable at 32, hemoglobin 10, MCV is 86. We will keep her on some iron. Says her breathing is better. She thinks maybe it is from the adjustment of medications. Blood sugars have been running around 280-396, so kind of bouncing around a little bit. ASSESSMENT AND PLAN: 1. Large loss of domain hernia and ileostomy, presenting with gastrointestinal bleed; suspect upper gastrointestinal from the stomach. It seems to have resolved. Hematocrit is stable. Will keep her on iron. 2. Question blood thinner. I guess will go back on the Eliquis. She has had trouble with chronic venous insufficiency and deep vein thromboses of the lower extremities in the past. If she has further bleeding will have to consider stopping that and performing an EGD and looking at the stomach. At this point I do not see an indication for that. 1. Morbid obesity. Encouraged weight reduction. 2. Diabetes mellitus type 2. Sugars are fairly labile but she is comfortable. 3. History of hypertension. 4. History of hypothyroidism. Appears to be euthyroid on exam. TSH was 0.93 and T4 was 1.32. REVIEW OF HER ORDERS: She is on Zosyn 3.375 g IV q.6 hours. I think we can stop that. I was giving that for a little bit of what looked like panniculitis. Carafate 1 g 4 times a day, Protonix 40 mg IV q.12 hours and I think we can change that to p.o. She is getting fluids at 85 mL/h, Synthroid 150 mcg IV daily, will switch that to p.o., and she is on insulin Detemir 17 units subcutaneously b.i.d. which I am going to leave alone. cc: Jose Cruz Begum MD
[2016-12-29] MEDS: VITAMIN D PO SCH (10:21)
--- NOTE | 2016-12-29 11:01 | PROGRESS NOTE ---
DATE: 12/29/2016 SUBJECTIVE: She is sleeping this morning. Per the nurse, no more bleeding. OBJECTIVE: Vital signs: No fevers. No tachycardia. Blood pressure 146/63. Laboratory: Hematocrit was stable yesterday at 32.9. Glucose remains high at 300. General: She is resting quietly. I did not disturb her. Cardiovascular: Normal rate. Regular rhythm. ASSESSMENT AND PLAN: This is a 71-year-old female with gastrointestinal bleed, complicated surgical abdomen with large hernia.. She promptly resolved her GI bleed with the holding of her anticoagulant. I think Dr. Begum plans to resume that. She has had some high risk of DVTs in the past and has atrial fibrillation .will monitor her to make sure she does not rebleed. If she does, she will need endoscopy or if she has any bleeding in the future. She is on PPI and Carafate. I think plans are for her to go home n the next 24-48 hours. cc: Niles Duggan MD
[2016-12-29] MEDS: GLUCOPHAGE PO SCH (16:53)
[2016-12-30] MEDS: PROTONIX PO SCH (06:26)
[2016-12-30] MEDS: HUMULIN R SUBQ SCH (06:27)
[2016-12-30] MEDS ORDERED: LEVEMIR SUBQ SCH (07:00)
[2016-12-30] MEDS ORDERED: SYNTHROID PO SCH (07:00)
[2016-12-30 08:06] VITALS: BP 178/93
[2016-12-30] MEDS: NS 1,000 ML IV SCH (08:52)
[2016-12-30] MEDS: ICAR-C PO SCH (08:52)
[2016-12-30] MEDS: GLUCOPHAGE PO SCH (08:52)
[2016-12-30] MEDS: FOLTX PO SCH (08:52)
[2016-12-30] MEDS: LIPITOR PO SCH (08:52)
[2016-12-30] MEDS: CENTRUM SILVER PO SCH (08:52)
[2016-12-30] MEDS: VITAMIN D PO SCH (08:52)
[2016-12-30] MEDS: ELIQUIS PO SCH (08:52)
[2016-12-30] MEDS: CARAFATE PO SCH (08:52)
[2016-12-30] MEDS: LEVEMIR SUBQ SCH (08:53)
--- NOTE | 2016-12-31 07:25 | DISCHARGE SUMMARY ---
ADMISSION DATE: 12/25/2016 DISCHARGE DATE: 12/30/2016 HISTORY: This is a 71-year-old who was admitted on 12/25/2016. She came in with 2-day history of some pain right-sided of her ileostomy. She has a large ventral hernia with pendulum, and there was some redness around the ileostomy. She really did not report any fever or chills, but did notice that this seemed to be a little blood-tinge in the ileostomy bag. She has had a couple previous times where she has had ruptured small bowel and she is status post total colectomy for ulcerative colitis. She has a large volume displaced ventral hernia which really hangs down to her knees and is prone to at times to get some discomfort. PAST MEDICAL HISTORY: 1. Hypertension. 2. Hyperlipidemia. 3. Gastroesophageal reflux. 4. Diabetes mellitus. 5. Diabetic neuropathy. 6. Abdominal hernia. 7. Thyroid disease. 8. Deep venous thrombosis. She has had trouble with venous insufficiency. PAST SURGICAL HISTORY: 1. Tonsillectomy. 2. Hernia repair. 3. Multiple bowel surgeries. 4. Ileostomy and total colectomy for ulcerative colitis. SOCIAL HISTORY: She lives by herself. She has a very attentive son and family and she has been independent. She has been able to ambulate and walk around, but admit for possible upper GI bleed. She was evaluated by Dr. Duggan and we are hoping with the color of her stool in the ileostomy bag that it appeared to be from the upper GI tract stomach, possible gastritis or even peptic ulcer disease. She has a large hernia that we are not able to surgically repair. We held her Eliquis and started her on proton pump inhibitors and some Carafate. The stools resolved and I did not see anymore sign of bleeding in the ileostomy bag as she appeared to have a little panniculitis around the ileostomy bag and panniculus seemed to resolve. She felt much better. We had a discussion over the Eliquis, and because of her previous history of venous insufficiency we decided to put her back on Eliquis just one a day and we will hold her aspirin. She was eating and ambulating well, so plan to discharge her home on 12/30/2016. We also reviewed that she had a CT of the abdomen and pelvis on 12/25/2016 on admission. 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 DISCHARGE MEDICATIONS: 1. She will take Tylenol as needed. 2. Albuterol inhaler as needed. 3. I have put her back on Eliquis 5 mg once a day. 4. Lipitor 40 mg a day. 5. Vitamin D 5000 units a day. 6. Flonase 1 puff each nostril daily. 7. Foltx (which is folic acid 1 p.o. daily). 8. She is on Levemir 17 units subcutaneously b.i.d. she takes 20 units before mealtime. 9. Icar C 1 a day. 10. Synthroid 200 mcg a day. 11. Glucophage 500 mg b.i.d. 12. Centrum Silver once a day. 13. Protonix 40 mg p.o. b.i.d. 14. Carafate 1 g 4 times a day. cc: Jose Cruz Begum MD
== END 2016-12-30 11:27 | disposition home or self-care (01) ==
LOC: ED 12:36 → 3S 20:25
PROVIDERS: ATTEND Emergency Medicine

== ENCOUNTER 2018-07-22 17:08 | Inpatient (IN) ==
[2018-07-22] MEDS ORDERED: ASPIRIN PO ONE (17:25)
--- NOTE | 2018-07-22 17:28 | ED EKG INTERP ---
This chart was entered by Nandini Garzon Scribe, acting as scribe for Zack Mahmood MD. EKG Interpretation - EKG Time of EKG reading by physician:: 17:21 EKG Read and Signed by:: Zack Mahmood EKG Interpretation (*Must complete 3 of following elements*): Abnormal Rate: 68 Rhythm: atrial fibrillation Comments: nonspecific ST and T wave abnormality. Attestation - Physician/ VALE Attestation The physician spent face to face time with patient:: No Advanced Practice Provider documentation review:: Supervising physician onsite and consulted in the evaluation and care of this patient. The physician did not have a face to face encounter with the patient. This chart was documented by the indicated scribe, (Nandini Garzon Scribe) and accurately reflects the services I performed and decisions made by me, Zack Mahmood MD, as attested by the provider's signature.
--- NOTE | 2018-07-22 18:03 | Diag Imaging Result Doc PS360 ---
CHEST-2 VIEWS - 07/22/2018 INDICATION: SOB COMPARISON: 01/05/2018 FINDINGS: Stable cardiomegaly and pulmonary vascular congestion. There is mild hazy infiltrate in the lung bases suggesting pulmonary edema. No large pleural effusion. IMPRESSION: Cardiomegaly. Probable mild pulmonary edema. Electronically signed by Hector Palma 07/22/2018 6:01 PM
[2018-07-22 19:23] LABS: BASO# 0.04 X1000 (0.0-0.2); BASO% 0.5 % (0.0-0.8); EOS# 0.29 X1000 (0.0-0.7); EOS% 3.8 % (0.0-10.0); LYMPH# 1.93 X1000 (1.2-3.4); LYMPH% 25.5 % (20.5-51.1); MCH 26.5 PG (27-31); MCHC 30.8 g/dL (33-37); MCV 86.3 FL (81-99); MONO# 0.53 X1000 (0.11-0.59); MPV 10.8 FL (7.4-10.4); NEUT# 4.77 X1000 (1.4-6.5); NEUT% 63.2 % (42.2-75.2); PLT 325 X1000 (130-400); RBC 4.52 XMIL (4.2-5.4); RDW 15.2 % (11.5-14.5); WBC 7.56 X1000 (4.8-10.8)
[2018-07-22 19:33] LABS: INR 1.12; PROTIME 15.4 Seconds (11.0-16.0)
[2018-07-22 19:34] LABS: PTT 31.8 Seconds (22.3-41.8)
[2018-07-22 19:55] LABS: ALB/GLOB RATIO 1.2; CREATININE 1.1 mg/dL (0.5-0.9); POTASSIUM 4.3 mmol/L (3.5-5.1); TOTAL BILIRUBIN 0.24 mg/dL (0.20-1.00); TOTAL PROTEIN 7.3 g/dL (6.3-8.3)
[2018-07-22] MEDS ORDERED: LASIX IV ONE (20:28)
--- NOTE | 2018-07-22 20:38 | PROVIDER DOCUMENTATION ---
This chart was entered by [place] Scribe, acting as scribe for Jono Hurley MD. HPI-Respiratory General - General Chief Complaint: Shortness of Breath Stated Complaint: LOW HEART RATE/SOB Time Seen by Provider: 07/22/18 19:34 Source: patient Allergies/Adverse Reactions: Patient Allergies Allergy/AdvReac Type Severity Reaction Status Date / Time Iodinated Contrast- Oral and Allergy RASH Verified 12/10/17 16:50 IV Dye [IV Dye] Home Medications: Home Medication List Medication Instructions Recorded Confirmed Last Taken Type Atorvastatin Calcium [Lipitor] 40 mg PO QHS 03/28/16 01/05/18 01/04/18 History Fenofibrate [Tricor] 145 mg PO QHS 03/28/16 01/05/18 01/04/18 History Metformin [Glucophage] 500 mg PO BID CC 03/28/16 01/08/18 01/05/18 History Multivitamins/Minerals [Centrum 1 tab PO DAILY 06/20/17 01/05/18 01/05/18 History Silver] [place]-3 Fatty Acids [Fish Oil] 1 cap PO BID 06/20/17 01/05/18 01/05/18 History Cholecalciferol (Vitamin D3) 5,000 unit PO DAILY 11/16/17 01/05/18 01/05/18 History [Vitamin D3] Cyanocobalamin/Folic AC/Vit B6 2 mg PO DAILY 11/16/17 01/05/18 01/05/18 History [Folbic Tablet] Fluticasone 50 Mcg Nasal [place] 1 spray TASHIA DAILY PRN 11/16/17 01/05/18 11/28/17 History [Flonase] Glimepiride 4 mg PO BID 11/16/17 01/05/18 01/05/18 History Insulin Detemir [Levemir] 30 units SQ DAILY 11/16/17 01/05/18 01/05/18 History Levothyroxine Sodium [Synthroid] 175 microgm PO DAILY 11/16/17 01/05/18 History Sucralfate [Carafate] 1 gm PO 4XDAY #120 tab 11/23/17 01/05/18 01/05/18 Rx Apixaban [Eliquis] 5 mg PO BID tablet 06/07/2401/05/18 01/05/18 Rx Benzonatate [Tessalon] 100 mg PO TID PRN PRN capsule 12/05/17 01/05/18 Unknown Rx Pantoprazole [Protonix] 40 mg PO BID tablet 12/05/17 01/05/18 01/05/18 Rx Furosemide [Lasix] 40 mg PO BID tablet 12/14/17 01/05/18 01/05/18 Rx Albuterol Sulfate [Albuterol 1 - 2 inhaler INH DAILY PRN 01/05/18 01/05/18 Unknown History Sulfate Hfa] Doxycycline 100 mg PO BID tablet 01/09/18 Unknown Rx Sodium Bicarbonate 650 mg PO BID tablet 01/09/18 Unknown Rx - History of Present Illness-Resp Nature of Presenting Problem: Pt is a 72 y/o F presents to the ED with SOB, cough for 3 dys. The son states pt has had multiple hospitalizations for hyperkalemia and kidney failure which starts with SOB. He also states she has hx of bradycardia and A-fib which act up when her K+ is high. Quality of Pain: reports: none Severity in ED: reports: mild Onset/Duration: reports: 3 days ago Timing: reports: still present Exposure: denies: unknown cause Cough Quality/Degree: reports: mild Episode Frequency: no prior episodes Current Respiratory Medication Therapy: Initiated albuterol/atrovent inhale Modifying Factors: improves with: nothing Associated Symptoms: reports: cough, shortness of breath. denies: dizziness, fever/chills, flu-like symptoms, hurts to breathe Similar Symptoms Previously?: Yes Recently seen or treated by another doctor?: No Review of Systems - Adult - REVIEW OF SYSTEMS - ADULT Constitutional: denies: chills, fever Eyes: reports: no symptoms reported Ears, Nose, Mouth & Throat: denies: sinus problem, nose pain, throat pain Cardiovascular: reports: edema. denies: chest pain Respiratory: reports: cough, shortness of breath. denies: wheezing Gastrointestinal: denies: abdominal pain, nausea, vomiting Genitourinary: reports: no symptoms reported Musculoskeletal: denies: back pain, neck pain Integumentary: reports: no symptoms reported Neurological: denies: dizziness/vertigo, headache/migraines Psychiatric: reports: no symptoms reported Endocrine: reports: no symptoms reported Hematologic/Lymphatic: reports: no symptoms reported Allergic/Immunologic: reports: no symptoms reported All Other Systems: Reviewed and Negative Past History - Adult - PAST MEDICAL HISTORY-ADULT Review of Records: reports: Old Records Reviewed, Nursing Assessment Review, Medications Reviewed Major Childhood Illnesses: reports: denies history Cardiovascular: reports: blood clots (dvt), HTN, hyperlipidemia Respiratory: reports: asthma Gastrointestinal: reports: GERD, other (hernia, stoma) Obstetrical/Gynecological: reports: denies history Genitourinary: reports: dialysis, kidney disease Musculoskeletal: reports: denies history Neurological: reports: other (diabetic neuropathy) Endocrine/Immune: reports: Diabetes, thyroid disorder Other Conditions: reports: denies history - PRIOR SURGERIES/PROCEDURES Surgical/Procedure History: reports: tonsillectomy, hernia repair, bowel surgery (multiple), other (ileostomy) - PRIOR HOSPITALIZATIONS Prior Hospitalizations: reports: for other non-related - IMMUNIZATION STATUS Childhood Immunizations: See Nurse Assessment Flu Vaccine: See Nurse Assessment - FAMILY HISTORY Family History: reviewed, not pertinent - SOCIAL HISTORY Smoking: non-smoker Substance Use: none/never Living Situation: family Physical Exam-General - PHYSICAL EXAM-ADULT Initial Vital Signs Reviewed: Yes - CONSTITUTIONAL General Appearance: appears well, alert, no apparent distress - EYES Eyes: PERRL/EOMI, pink conjunctivae - HEAD, EARS, NOSE, MOUTH & THROAT HENMT: moist mucous membranes, normal ENT inspection, pharynx normal - NECK Neck: full range of motion, supple, normal inspection - RESPIRATORY Respiratory: lungs clear, normal breath sounds, no pleuratic chest pain, no respiratory distress, no accessory muscle use, respiratory distress - CARDIOVASCULAR Cardiovascular: normal peripheral pulses, irregularly irregular - GASTROINTESTINAL (ABDOMEN) Abdominal Exam: soft, tenderness, other (very large abdominal hernia. Ilistomoy) - MUSCULOSKELETAL Back Exam: normal inspection, no CVA tenderness, no vertebral tenderness Extremity: normal range of motion, normal gait, normal inspection, pedal edema ( 3+left ankle and 2+left ankle) - SKIN Integumentary: normal color, normal turgor, warm/dry - NEUROLOGIC Neurologic: grossly normal, no motor/sensory deficits - PSYCHIATRIC Psych/Mental Status: normal mood/affect, normal thought content, normal thought process, oriented x 3 Progress - PLAN OF CARE/RESULTS Progress/Plan/Lab Results: Vital Signs - 8 hr 07/22/18 17:22 07/22/18 18:58 Temperature 97.8 F Pulse Rate 58 L 57 L Respiratory Rate 18 Blood Pressure 133/99 O2 Sat by Pulse Oximetry 97 Laboratory Results - last 24 hr 07/22/18 07/22/18 07/22/18 17:28 17:28 17:28 WBC 7.56 RBC 4.52 Hgb 12.0 Hct 39.0 MCV 86.3 MCH 26.5 L MCHC 30.8 L RDW Std Deviation 15.2 H Plt Count 325 MPV 10.8 H Immature Gran % (Auto) 0.0 Neut % (Auto) 63.2 Lymph % (Auto) 25.5 [place] % (Auto) 7.0 Eos % (Auto) 3.8 Baso % (Auto) 0.5 Immature Gran # (Auto) 0.00 Neut # (Auto) 4.77 Lymph # (Auto) 1.93 [place] # (Auto) 0.53 Eos # (Auto) 0.29 Baso # (Auto) 0.04 PT INR PTT (Actin FS) Sodium 137 Potassium 4.3 Chloride 99 Carbon Dioxide 27 Anion Gap 11 BUN 26 H Creatinine 1.1 H Estimated GFR/1.73 m2 49 BUN/Creatinine Ratio 24 Glucose 261 H Calculated Osmolality 288 Calcium 10.0 Total Bilirubin 0.24 AST 28 ALT 19 Alkaline Phosphatase 60 Creatine Kinase 89 Troponin T Mxz-X-Mmekpfkuigh Pept 2388 H Total Protein 7.3 Albumin 4.0 Globulin 3.3 Albumin/Globulin Ratio 1.2 07/22/18 07/22/18 17:28 17:28 WBC RBC Hgb Hct MCV MCH MCHC RDW Std Deviation Plt Count MPV Immature Gran % (Auto) Neut % (Auto) Lymph % (Auto) [place] % (Auto) Eos % (Auto) Baso % (Auto) Immature Gran # (Auto) Neut # (Auto) Lymph # (Auto) [place] # (Auto) Eos # (Auto) Baso # (Auto) PT 15.4 INR 1.12 PTT (Actin FS) 31.8 Sodium Potassium Chloride Carbon Dioxide Anion Gap BUN Creatinine Estimated GFR/1.73 m2 BUN/Creatinine Ratio Glucose Calculated Osmolality Calcium Total Bilirubin AST ALT Alkaline Phosphatase Creatine Kinase Troponin T 0.011 Jwl-Y-Mdztuvllftk Pept Total Protein Albumin Globulin Albumin/Globulin Ratio Orders Category Date Time Status Cardiac Monitoring DIRECTED Care 07/22/18 17:25 Active Oxygen Therapy- ED Nursing DIRECTED Care 07/22/18 17:25 Active Saline Loc NOW Care 07/22/18 17:25 Active CHEST-2 VIEWS [RAD] Stat Exams 07/22/18 17:25 Completed CBC WITH ELECTRONIC DIFF [HEME] Stat Lab 07/22/18 17:28 Completed CK PROFILE [SP CHEM] Stat Lab 07/22/18 17:28 Completed COMPREHENSIVE METABOLIC PANEL [CHEM] Stat Lab 07/22/18 17:28 Completed PRO B-NATRIURETIC PEPTIDE Stat Lab 07/22/18 17:28 Completed PROTIME WITH INR [COAG] Stat Lab 07/22/18 17:28 Completed PTT [COAG] Stat Lab 07/22/18 17:28 Completed TROPONIN T Stat Lab 07/22/18 17:28 Completed Aspirin Med 07/22/18 17:25 Discontinued 325 mg PO NOW ONE Furosemide [Lasix] Med 07/22/18 20:28 Discontinued 40 mg IV NOW ONE CP/SOB/Palp >45 yrs of Age Stat Oth 07/22/18 17:25 Ordered EKG [EKG] Stat Ther 07/22/18 17:25 Ordered Result Diagrams: 07/22/18 17:28 07/22/18 17:28 - EKG 1 Time of EKG reading by physician:: 19:01 EKG Read and Signed by:: Jono Hurley EKG Interpretation (*Must complete 3 of following elements*): Abnormal Rate: 57 Rhythm: Junctional - XRAY 1 XRAY Study: Chest Impression: Abnormal (CHEST-2 VIEWS - 07/22/2018 INDICATION: SOB COMPARISON: 01/05/2018 FINDINGS: Stable cardiomegaly and pulmonary vascular congestion. There is mild hazy infiltrate in the lung bases suggesting pulmonary edema. No large pleural effusion. IMPRESSION: Cardiomegaly. Probable mild pulmonary edema. Electronically signed by Hector Palma 07/22/2018 6:01 PM 07/22/18 1801) - CONSULTS/PCP/HOSPITALIST Notification #1 *Consult/PCP/Hospitalist*: Dr. Muñoz,hospitalist Time Discussed: 20:35 Consult Disposition: Admit Departure - Departure Date of Disposition Decision: 07/22/18 Time of Disposition Decision: 20:38 DIAGNOSIS: CHF (congestive heart failure) Qualifiers: Heart failure type: unspecified Heart failure chronicity: unspecified Qualified Code(s): I50.9 - Heart failure, unspecified Disposition: ADMITTED INPATIENT 09 Certified Medical Emergency: Emergent Condition: Stable Referrals and Follow-Ups: Eugenia Abdi MD [Primary Care Provider] - - Critical Care Note This patient required my direct & personal management of CC.: No Attestation - Physician/ VALE Attestation Patient care was provided by Advanced Practice Provider:: No The physician spent face to face time with patient:: Yes Advanced Practice Provider documentation review:: Supervising physician onsite and consulted in the evaluation and care of this patient. The physician did have a face to face encounter with the patient. This chart was documented by the indicated scribe, ([place] Scribe) and accurately reflects the services I performed and decisions made by me, Jono Hurley MD, as attested by the provider's signature.
[2018-07-23] MEDS ORDERED: ZOFRAN IV PRN (02:33)
[2018-07-23] MEDS ORDERED: FLONASE NAS PRN (02:44)
[2018-07-23] MEDS ORDERED: TYLENOL PO PRN (02:48)
[2018-07-23 03:43] LABS: BASO# 0.03 X1000 (0.0-0.2); BASO% 0.4 % (0.0-0.8); EOS# 0.31 X1000 (0.0-0.7); EOS% 4.5 % (0.0-10.0); HEMATOCRIT 36.5 % (37.0-47.0); HEMOGLOBIN 11.6 g/dL (12.0-16.0); LYMPH# 1.62 X1000 (1.2-3.4); LYMPH% 23.3 % (20.5-51.1); MCH 27.1 PG (27-31); MCHC 31.8 g/dL (33-37); MCV 85.3 FL (81-99); MONO# 0.55 X1000 (0.11-0.59); MONO% 7.9 % (1.7-9.3); MPV 10.2 FL (7.4-10.4); NEUT# 4.45 X1000 (1.4-6.5); NEUT% 63.9 % (42.2-75.2); PLT 303 X1000 (130-400); RBC 4.28 XMIL (4.2-5.4); RDW 14.9 % (11.5-14.5); WBC 6.96 X1000 (4.8-10.8)
[2018-07-23 03:53] LABS: HEMOGLOBIN A1C 9.1 % (4.8-6.0)
[2018-07-23 04:19] LABS: AGAP 10; BUN 23 mg/dL (8-22); CALCIUM 9.8 mg/dL (8.8-10.2); CHLORIDE 101 mmol/L (98-107); COSMO 287; CREATININE 0.9 mg/dL (0.5-0.9); ESTIMATED GFR > 60; GLUCOSE 70 mg/dL (70-104); MAGNESIUM 1.6 mg/dL (1.5-2.7); POTASSIUM 3.2 mmol/L (3.5-5.1); SODIUM 143 mmol/L (136-145); TCO2 32 mmol/L (25-35)
[2018-07-23] MEDS ORDERED: KLOR-CON PO ONE (05:43)
[2018-07-23] MEDS: HUMALOG SUBQ SCH ×3 (07:00→17:00)
[2018-07-23] MEDS ORDERED: VENTOLIN HFA INH PRN (07:23)
--- NOTE | 2018-07-23 08:05 | EKG Report ---
Test Performed on : 07/23/2018 07:02:39 AM Test Reason : Heart Failure Blood Pressure : / mmHG Vent. Rate : 057 BPM Atrial Rate : 057 BPM P-R Int : 196 ms QRS Dur : 108 ms QT Int : 434 ms P-R-T Axes : 059 -16 022 degrees QTc Int : 422 ms Sinus bradycardia. with marked sinus arrhythmia. or sinus pauses Otherwise normal ECG When compared with ECG of 22-JUL-2018 19:01, (Unconfirmed) Sinus rhythm. has replaced Junctional rhythm. Confirmed by Parvin DAVIES, Elieser Brito ([id number]) on 07/25/2018 10:14:51 AM
--- NOTE | 2018-07-23 08:53 | HISTORY AND PHYSICAL ---
PRIMARY CARE PROVIDER: Dr. Eugenia Abdi TRAVEL SALES CONSULTANT: Dr. Ej Crawford CHIEF COMPLAINT: Shortness of breath. HISTORY OF PRESENT ILLNESS: Ms. Zimmerman is a 72-year-old female with a past medical history most notable for coronary artery disease, hypertension, hyperlipidemia, chronic kidney disease, obesity, diabetes mellitus type 2, and a history of chronic diastolic heart failure, though the patient and her son both deny her having any known history of heart failure, though her history of heart failure has been previously mentioned in Cardiology consults. The patient reports that she has had a 3-day history of worsening shortness of breath with cough. It does sound as though the patient has had orthopnea for awhile. She states that she does sleep on the cough and does use 2 pillows to prop up with. She also sounds like she may be having some paroxysmal nocturnal dyspnea, stating that she has been waking up at night short of breath. She does have exertional dyspnea as well. She also reports that she has been having some swelling in her bilateral lower extremities. The patient states that her normally her right lower extremity stays more swollen than her left, though at this time, her left lower extremity does appear to be more swollen than her right. There also is increased warmth in her left lower extremity when compared to the right as well as there is some erythema present as well. The patient does have a history of multiple previous DVTs as well as history of paroxysmal atrial fibrillation and is on chronic anticoagulation with Eliquis. The patient states at this time that she only takes Lasix 20 mg p.r.n. as needed for swelling in her extremities. The only new medication that she reports that she has been given recently is she was placed on iron tablets by Dr. Kaplan for anemia. After taking this, the patient states that she feels as though her output that she is having out of her ileostomy is more formed than her normal stools. She has reported some occasional dizziness though she denies any chest pain. She denies any nausea or vomiting. She denies any hematochezia or melena. She denies any dysuria. The patient does have a large abdominal hernia noted with ileostomy present. The patient states this is at its baseline and has not increased in size and she is not having any new or increased abdominal pain. Upon evaluation in the ER, the patient was slightly bradycardia upon with a heart rate of 58. Since that time, she has maintained heart rate in the 60s. Blood pressure was 133/99, oxygen saturation was 97% on room air. She had been afebrile. EKG performed showed a junctional rhythm at a rate of 57 with a QTC of 399. Chest x-ray did show cardiomegaly with probable mild pulmonary edema. Also the patient did have approximately 1-2+ pitting edema in bilateral lower extremities. Her white blood cell count was within normal limits. There was no leukocytosis noted. BUN and creatinine were slightly elevated at 26 and 1.1 though the patient does have a history of chronic kidney disease. This does appear to be at her baseline and slightly improved. There does appear to be slightly improved from her normal baseline. Glucose was 261. ProBNP was 2388. CK within normal limits. Troponin was 0.011. The patient is denying any chest pain at this time. At this time, the patient will be admitted for further treatment and evaluation of her congestive heart failure exacerbation. REVIEW OF SYSTEMS: A 14-point review of systems was conducted with the patient and all were negative except for pertinent positives mentioned above in HPI. PAST MEDICAL HISTORY: 1. Coronary artery disease. 2. Diabetes mellitus type 2. 3. History of chronic diastolic heart failure. 4. Chronic kidney disease. 5. Hypertension. 6. Hypothyroidism. 7. Hyperlipidemia. 8. Obesity. 9. History of having received hemodialysis in the past. 10.Asthma. 11.Gastroesophageal reflux disease. 12.Large abdominal hernia. 13.Status post ileostomy. 14.Paroxysmal atrial fibrillation. PAST SURGICAL HISTORY: 1. Tonsillectomy. 2. Abdominal hernia repair. 3. Small bowel obstruction and result ileostomy. FAMILY HISTORY: Notable for heart disease, diabetes, and hypertension. SOCIAL HISTORY: The patient does live alone though her son states that someone is there with her pretty much all the time. The patient does require assistive device for ambulation of a walker. She has known history of tobacco, alcohol or illicit drug use. ALLERGIES: The patient has allergies to IV contrast and oral IV dye. MEDICATIONS: 1. Albuterol sulfate HFA inhaler 1-2 puffs inhaled p.r.n. 2. Eliquis 5 mg p.o. b.i.d. 3. Atorvastatin 40 mg p.o. nightly. 4. Vitamin D3 5000 units p.o. daily. 5. Folbic 10 mg p.o. daily. 6. Tricor 145 mg p.o. nightly. 7. Flonase 1 spray nasally daily p.r.n. for allergies. 8. Lasix 20 mg p.o. p.r.n. as directed. 9. Glimepiride 4 mg p.o. b.i.d. 10.Levemir 30 units subcu daily. 11.Icar-C 1 tablet p.o. daily. 12.Synthroid 175 mcg p.o. daily. 13.Metformin 500 mg p.o. b.i.d. 14.Centrum Silver multivitamin 1 tablet p.o. daily. 15.Fish oil 1 capsule p.o. b.i.d. 16.Protonix 40 mg p.o. b.i.d. DIAGNOSTIC DATA/LABORATORY RESULTS: White blood cell count 7560, hemoglobin 12, hematocrit 39, platelet count 325. PT 156.4, INR 1.12, PTT 31.8. Sodium 137, potassium 4.3, chloride 99, serum bicarb 27, BUN 26, creatinine 1.1 with a GFR of 49, glucose 261. Hemoglobin A1c is 9.1. Calcium 10, magnesium 1.6. Liver function tests are within normal limits. CK 89 with a repeat of 76. Troponin 0.011 with a repeat of 0.018. ProBNP is 2388. EKG showed junctional rhythm at a rate of 57 with a QTC of 3099. Chest x-ray showed cardiomegaly and probable mild pulmonary edema. PHYSICAL EXAMINATION: VITAL SIGNS: Temperature 97.8, heart rate 72, respirations 20, blood pressure 151/89, oxygen saturation 95%. GENERAL: Ms. Zimmerman is a very pleasant 72-year-old elderly female. She was resting on the ER stretcher. She was in no acute distress. She was awake, alert and able to answer questions appropriately. HEENT: Head is atraumatic, normocephalic. Pupils are equal, round and reactive to light, 3 mm bilaterally and brisk. Oral mucosa was slightly dry. Oropharynx clear. NECK: Supple. Trachea midline. CARDIOVASCULAR: The patient has S1 and S2 present. No murmurs, gallops or rubs appreciated. Regular rate and rhythm. PULMONARY: The patient has symmetrical chest expansion bilaterally. Lungs sounds were clear to auscultation in bilateral full miller. ABDOMEN: Soft and nontender. Upon palpation, the patient does have a protuberant abdomen noted though it does not appear to be overtly distended. The patient does have a very large abdominal hernia noted to the right side of her abdomen. The hernia does contain loops of her bowel, her ileostomy is in the right lower portion of her abdominal hernia. She does have yellowish brown colored stool noted to the ostomy bag. Bowel sounds were present in all four quadrants, were normoactive. EXTREMITIES: No cyanosis or clubbing noted. The patient does have approximately 1-2+ pitting edema noted in bilateral lower extremities from approximately mid calf down. Pulse, motor and sensory were intact in all extremities. Pedal pulses and radial pulses were 2+ bilaterally. The patient does have more swelling noted in her left lower extremity when compared to her right. This extremity also has increased warmth compared to the right and some erythema noted. The patient did report some tenderness upon palpation of the deep venous system in this extremity. INTEGUMENTARY: The patient's skin is pink, warm, and dry. NEUROLOGIC: The patient is alert and oriented x4 to person, place, time, and situation. There does not appear to be any focal neurologic deficits noted. ASSESSMENT AND PLAN: 1. Congestive heart failure exacerbation. The patient does appear to be having exacerbation. She has been having orthopnea, exertional dyspnea, and what sounds like is probably paroxysmal nocturnal dyspnea. She also has reported some swelling in her bilateral lower extremities. She has had reported 3-day history of worsening shortness of breath and cough as well as some occasional dizziness, though she is denying any chest pain. She was given a one time dose of 40 mg of Lasix in the IV and has had good response with quite a bit of urine output. We will continue to monitor her response to the Lasix closely with strict intake and output and daily weights. Previously, the patient in old history and physical did take at one time Lasix 40 mg b.i.d. though at this time she is only prescribed 20 mg p.r.n. We will place her on 40 mg of Lasix daily at this time. Given her onset of worsening symptoms, we will repeat an echocardiogram as well. At this time, CK enzymes have been negative though troponins were slightly elevated at 0.011 and repeat of 0.018, though she is denying any chest pain. We with continue to monitor this closely. We have placed a consult with Cardiology and will await their evaluation and further recommendations for management. 2. History of coronary artery disease. 3. Hypertension. The patient's blood pressure at this time is within normal limits though it looks as though at this time the patient is not taking any antihypertensive medication. We will continue to follow and implement antihypertensives if necessary. 4. Hyperlipidemia. Will continue her atorvastatin and Tricor. 5. Uncontrolled diabetes mellitus type 2. We will continue the patient's Levemir. We will place her on a lispro sliding scale as well per low dose protocol. 6. History of deep venous thromboses. We will continue her Eliquis 5 mg p.o. b.i.d. As well, the patient did have some increased swelling and warmth in her left lower extremity compared to the right, as well as some erythema. She was tender in the deep venous system of this lower extremity. Given her history, we will obtain venous Doppler of the left lower extremity for further evaluation of this. 7. Large abdominal hernia. This does appear to be stable. 8. Status post ileostomy. 9. Deep venous thrombosis prophylaxis will be provided with above mentioned Eliquis. 10.History of gastroesophageal reflux disease. Will continue the patient's Protonix. The patient has been placed on the medical floor with telemetry. She will have vital signs every 4 hours. Will do strict intake and output, incentive spirometry, daily weights. She will have pattern fingerstick blood sugars. She will be on a diabetic and heart healthy diet. We will repeat EKG in the morning as well and do a series of cardiac enzymes, BMP and magnesium. Further orders and recommendations pending hospital course, diagnostic studies and physician evaluation. Dictated by CLINT Doyle for Jarvis Muñoz MD cc: Jarvis Muñoz MD
[2018-07-23] MEDS ORDERED: LASIX IV SCH (09:00)
[2018-07-23] MEDS: PROTONIX PO SCH ×2 (09:39→20:37)
[2018-07-23] MEDS: ICAR-C PO SCH (09:39)
[2018-07-23] MEDS: ELIQUIS PO SCH ×2 (09:39→20:37)
[2018-07-23] MEDS: FISH OIL CONCENTRATE PO SCH ×2 (09:39→20:37)
[2018-07-23] MEDS: VITAMIN D PO SCH (09:39)
[2018-07-23] MEDS: CENTRUM SILVER PO SCH (09:39)
[2018-07-23] MEDS: LEVEMIR SUBQ SCH (09:40)
[2018-07-23] MEDS: FOLTX PO SCH (09:46)
[2018-07-23] MEDS: SYNTHROID PO SCH (09:46)
--- NOTE | 2018-07-23 09:47 | EKG Report ---
Test Performed on : 07/22/2018 7:01:10 PM Test Reason : CP Blood Pressure : / mmHG Vent. Rate : 057 BPM Atrial Rate : 058 BPM P-R Int : 000 ms QRS Dur : 100 ms QT Int : 410 ms P-R-T Axes : 000 -05 039 degrees QTc Int : 399 ms Junctional rhythm. Abnormal ECG When compared with ECG of 22-JUL-2018 17:21, (Unconfirmed) there has been no significant change. other than absence of PVCs Retrograde P waves noted Confirmed by Parvin DAVIES, Elieser Brito ([id number]) on 07/25/2018 9:58:29 AM
--- NOTE | 2018-07-23 10:32 | EKG Report ---
Test Performed on : 07/22/2018 5:21:45 PM Test Reason : SOB Blood Pressure : / mmHG Vent. Rate : 068 BPM Atrial Rate : 277 BPM P-R Int : 000 ms QRS Dur : 090 ms QT Int : 394 ms P-R-T Axes : 000 -10 032 degrees QTc Int : 418 ms Atrial fibrillation. Nonspecific ST and T wave abnormality Abnormal ECG When compared with ECG of 06-JAN-2018 17:45, Atrial fibrillation. has replaced Sinus rhythm. Unconfirmed Result
[2018-07-23] MEDS ORDERED: MAGNESIUM SULFATE 2 GM/S.W.I. 2 GM/50 ML IVPB IV ONE (10:54)
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
[2018-07-23] MEDS: COZAAR PO SCH (12:00)
--- NOTE | 2018-07-23 13:06 | PROGRESS NOTE ---
DATE: 07/23/2018 SUBJECTIVE: The patient was admitted on 07/23/2018. Her doctor is Dr. Abdi. She presented with shortness of breath and was admitted with congestive heart failure, pulmonary venous hypertension, and quite a bit of swelling in her lower extremities. She says she is breathing better and feeling much better today. No chest pain. OBJECTIVE: Vital Signs: She is afebrile. Temperature 98 degrees, pulse 70, respirations 22, blood pressure 172/79. HEENT: Pupils are equal and round. Lungs: Clear in all lung miller. Cardiovascular: Exam regular rhythm and rate without murmur or S3. Abdomen: Soft. Skin: Warm and dry. DIAGNOSTIC DATA: I think she had an echocardiogram done, but it has not been read yet. ASSESSMENT AND PLAN: Dr. Quezada has evaluated. History of hypertension, diabetes, history of deep venous thrombosis in the past, hypothyroidism, obesity, coronary artery disease, and chronically occluded and calcified vessels, chronically occluded left anterior descending artery, and so I think he is planning on doing a stress test to rule out ischemia, and we are going to replete her magnesium and potassium. Continue her Eliquis, she has a history of deep venous thrombosis, and watch her renal function. She does have some renal insufficiency, but creatinine appears to be baseline, and we will follow her blood sugars, which it looks like they have been doing pretty well. Blood sugars 261, the next one was 70. REVIEW OF ORDERS: Lipitor 40 mg a day, Tricor 145 mg every night at bedtime, Eliquis 5 mg b.i.d., aspirin 81 mg a day, fluticasone inhalation 1 puff daily, Lasix 40 mg a day, insulin detemir 30 units daily, Synthroid 175 mcg daily, Cozaar 50 mg a day, Protonix 40 mg b.i.d., aspirin 325 mg a day. cc: Jose Cruz Begum MD
[2018-07-23 18:10] LABS: URINE SOURCE CLEAN CATCH
[2018-07-23 18:19] LABS: BILIRUBIN URINE NEGATIVE (NEGATIVE); BLOOD URINE NEGATIVE (NEGATIVE); COLOR YELLOW; GLUCOSE URINE NEGATIVE (NEGATIVE); KETONE URINE NEGATIVE (NEGATIVE); LEUKOCYTES URINE NEGATIVE (NEGATIVE); NITRITE URINE NEGATIVE (NEGATIVE); PH URINE 6.5; PROTEIN URINE TRACE mg/dL (NEGATIVE); SP GRAVITY URINE 1.002; TURBIDITY URINE CLEAR (CLEAR); UROBILINOGEN URINE NORMAL (NORMAL)
[2018-07-23 18:21] LABS: UR EPITHELIAL CELLS <10 /HPF (<10); URINE BACTERIA NEGATIVE /HPF; URINE RBC <10 /HPF (<10); URINE WBC <10 /HPF (<10)
[2018-07-23] MEDS: LIPITOR PO SCH (20:37)
[2018-07-23] MEDS: TRICOR PO SCH (20:37)
[2018-07-24] MEDS: HUMALOG SUBQ SCH ×5 (00:16→20:51)
[2018-07-24] MEDS: SYNTHROID PO SCH (06:44)
--- NOTE | 2018-07-24 07:43 | EKG Report ---
Test Performed on : 07/24/2018 07:02:42 AM Test Reason : dyspnea, CAD Blood Pressure : / mmHG Vent. Rate : 067 BPM Atrial Rate : 067 BPM P-R Int : 188 ms QRS Dur : 110 ms QT Int : 428 ms P-R-T Axes : 080 -22 046 degrees QTc Int : 452 ms Normal sinus rhythm. Normal ECG When compared with ECG of 23-JUL-2018 07:02, (Unconfirmed) No significant change was found Confirmed by Parvin DAVIES, Elieser Brito ([id number]) on 07/25/2018 10:45:39 AM
[2018-07-24] MEDS ORDERED: LEXISCAN ONE (10:56)
--- NOTE | 2018-07-24 10:59 | Extremity Venous Study ---
PROCEDURE NAME: Venous U/S Left Leg - 07/23/2018 PROFESSOR OF PRACTICE: Lloyd Guzman RDCS, RVT. REQUESTING PHYSICIAN: Jarvis Muñoz MD. INDICATIONS: Leg pain and erythema. Exam for comparison on 11/16/2017. FINDINGS: The deep and superficial veins left lower extremity were visualized. There is some chronic wall thickening of the mid superficial femoral vein on the left, that they could correlate to a chronic DVT here. There is maintained flow. Otherwise, no evidence of acute deep or superficial venous thrombosis. SUMMARY: Possible chronic deep venous thrombosis of the left mid superficial femoral vein. cc: Niles Duggan MD
[2018-07-24] MEDS: ICAR-C PO SCH (13:12)
[2018-07-24] MEDS: FISH OIL CONCENTRATE PO SCH ×2 (13:12→20:50)
[2018-07-24] MEDS: LEVEMIR SUBQ SCH (13:12)
[2018-07-24] MEDS: PROTONIX PO SCH ×2 (13:12→20:49)
[2018-07-24] MEDS: ELIQUIS PO SCH ×2 (13:12→20:48)
[2018-07-24] MEDS: FOLTX PO SCH (13:12)
[2018-07-24] MEDS: COZAAR PO SCH (13:12)
[2018-07-24] MEDS: ASPIRIN PO SCH (13:12)
[2018-07-24] MEDS: VITAMIN D PO SCH (13:12)
[2018-07-24] MEDS: CENTRUM SILVER PO SCH (13:12)
--- NOTE | 2018-07-24 14:08 | Diag Imaging Result Doc PS360 ---
CHEST-2 VIEWS - 07/24/2018 INDICATION: pulmonary venous HTN. COMPARISON: 07/22/2018 FINDINGS: There has been resolution of the mild interstitial pulmonary edema. Pulmonary vascularity is grossly normal. No pneumothorax or significant pleural effusion. There is improved cardiomegaly. IMPRESSION: Mild cardiomegaly. Significant improvement from prior. Electronically signed by Hector Palma 07/24/2018 2:06 PM
--- NOTE | 2018-07-24 15:11 | Diag Imaging Result Document ---
PROCEDURE NAME: MYOCARDIAL PERF SCAN, STR/REST - 07/24/2018 STUDY PERFORMED: Lexiscan Cardiolite stress test. FINDINGS/DESCRIPTION OF STUDY: Lexiscan was infused per standard protocol. There was no chest pain. Stress electrocardiogram was negative for ischemia. Following Lexiscan infusion, Cardiolite was injected, 14.7 mCi of Cardiolite was injected for the rest phase and 47.3 mCi of Cardiolite was injected for the stress phase. Gated SPECT images were obtained in standard views. Images revealed low-grade reversible perfusion defect in the inferoapical wall suggestive of ischemia. However, there is attenuation as well. I would recommend clinical correlation. Left ventricular ejection fraction by gated SPECT was 80%. CONCLUSIONS: 1. No chest pain. 2. Negative Lexiscan stress electrocardiogram. 3. Myocardial perfusion images revealed low-grade reversible perfusion defect in the inferoapical wall suggestive of ischemia. This could represent attenuation as well. I would recommend clinical correlation. cc: MD France Oliver PA
--- NOTE | 2018-07-24 17:18 | PROGRESS NOTE ---
DATE: 07/24/2018 SUBJECTIVE: Mrs. Zimmerman had GXT Lexiscan and did show some areas I think inferior lateral or inferior posterior and so she does not want a heart catheterization. I think the plan is to treat her medically. Dr. Quezada has discussed this with her. OBJECTIVE: Vital Signs: Temperature 98.0 degrees, pulse 85, respirations 16, blood pressure 154/80. HEENT: Pupils are equal and round. Lungs: Clear in all lung miller. Cardiovascular: Regular rate without murmur S3. Urine output was almost 1 L. Chest x-ray from this morning, mild cardiomegaly significant improvement from prior x-ray. This was compared to x-ray done 07/22/2018 and had cardiomegaly, probable mild pulmonary edema. Myocardial perfusion scan. No chest pain. Negative Lexiscan. EKG myocardial images revealed low-grade reversible perfusion defect in the inferior apical wall suggestive of ischemia. So plan to treat her medically. She would like to try and go home tomorrow. REVIEW OF HER ORDERS: She is on Lipitor 40 mg a day, Tricor 145 mg at bedtime, Eliquis 5 mg b.i.d., aspirin 81 mg a vitamin D3 5000 units a day, cyanocobalamin which is vitamin B12, multivitamin she takes once a day, fluticasone 50 mcg 1 spray daily, Lasix 20 mg a day, insulin detemir 30 mg daily, Humalog sliding scale, iron carbonyl ascorbic acid 1 a day, Synthroid 175 mcg, Cozaar 50 mg a day, multivitamin daily, omega-3 fatty acids 1000 mg b.i.d., Protonix 40 mg b.i.d. Will continue present regimen. cc: Jose Cruz Begum MD
[2018-07-24] MEDS: LIPITOR PO SCH (20:49)
[2018-07-24] MEDS: TRICOR PO SCH (20:49)
[2018-07-25] MEDS: SYNTHROID PO SCH (06:04)
[2018-07-25] MEDS: HUMALOG SUBQ SCH ×2 (06:04→11:50)
[2018-07-25 07:21] VITALS: BP 123/48
[2018-07-25] MEDS: LEVEMIR SUBQ SCH (08:37)
[2018-07-25] MEDS ORDERED: INSULIN PEN NEEDLES ONE ×2 (08:52→12:00)
[2018-07-25] MEDS ORDERED: LASIX PO SCH (09:00)
[2018-07-25] MEDS: ASPIRIN PO SCH (10:38)
[2018-07-25] MEDS: ELIQUIS PO SCH (10:39)
[2018-07-25] MEDS: CENTRUM SILVER PO SCH (10:39)
[2018-07-25] MEDS: COZAAR PO SCH (10:39)
[2018-07-25] MEDS: FISH OIL CONCENTRATE PO SCH (10:40)
[2018-07-25] MEDS: PROTONIX PO SCH (10:40)
[2018-07-25] MEDS: ICAR-C PO SCH (10:40)
[2018-07-25] MEDS: FOLTX PO SCH (10:40)
[2018-07-25] MEDS: VITAMIN D PO SCH (10:41)
--- NOTE | 2018-07-25 12:38 | DISCHARGE SUMMARY ---
ADMISSION DATE: 07/23/2018 DISCHARGE DATE: 07/25/2018 PRIMARY CARE PHYSICIAN: Dr. Eugenia Abdi. SUMMARY: A 72-year-old with past medical history notable for coronary artery disease, hypertension, hyperlipidemia, chronic kidney disease, obesity, diabetes mellitus type 2, history of chronic diastolic heart failure. The patient and son both deny any known history of heart failure though her history of heart failure has been previously mentioned in cardiology consult. The patient reports a 3-day history of worsening shortness of breath and cough, and the patient has had some orthopnea for a while and so was admitted. ADMISSION DIAGNOSES: 1. Congestive heart failure exacerbation. 2. History of coronary artery disease, rule out any active coronary ischemia. They gave her some diuresis and controlled the after load. She had a myocardial perfusion scan done on 07/24/2018, and it was no chest pain, negative Lexiscan, stress, EKG or electrocardiogram, myocardial perfusion scan showed revealed low-grade reversible perfusion defect in the inferior apical wall suggestive of ischemia, and she would like to pursue just medical treatment at this point. I discussed this with Dr. Quezada. She had a pretty uneventful night, and she was told she could go home this morning, so, she is anxious to do that. DISCHARGE MEDICATIONS: 1. Eliquis 5 mg b.i.d. 2. Aspirin 81 mg a day. 3. Lipitor 40 mg a day. 4. Vitamin D 5000 units a day. 5. Tricor 145 mg a day. 6. Flonase 1 puff each nostril daily p.r.n. 7. Foltx one daily. 8. Lasix 20 mg p.o. daily. 9. Icar, one a day. 10. Synthroid 175 mcg a day. 11. Cozaar 50 mg a day. 12. Centrum Silver 1 a day. 13. [place]-3, [place] 6, [place] 9 fish oil concentrate 1000 mg b.i.d.. 14. Protonix 40 mg b.i.d. We will get her ready go home, and she can follow up with her primary care and also follow up with Cardiology in a couple weeks. cc: Jose Cruz Begum MD
--- NOTE | 2018-07-27 15:23 | EKG Report ---
Test Performed on : 07/24/2018 8:43:02 PM Test Reason : 3N. No order in [place] Blood Pressure : / mmHG Vent. Rate : 084 BPM Atrial Rate : 084 BPM P-R Int : 158 ms QRS Dur : 102 ms QT Int : 390 ms P-R-T Axes : 031 -23 026 degrees QTc Int : 460 ms Normal sinus rhythm. Possible Left atrial enlargement Incomplete right bundle branch block Nonspecific ST abnormality Abnormal ECG When compared with ECG of 24-JUL-2018 07:02, (Unconfirmed) Incomplete right bundle branch block is now present Confirmed by Parvin DAVIES, Elieser Brito ([id number]) on 07/28/2018 5:33:44 PM
== END 2018-07-25 15:20 | disposition home or self-care (01) | DRG 291 ==
LOC: ED 17:08 → EDIPHOLD 07-23 00:52 → SUATTDRO 07-23 00:52 → 3N 07-23 07:34
PROVIDERS: ATTEND Emergency Medicine
CPT/HCPCS: 71020; 71046; 78452; 80048; 80053; 81001; 82550; 82948; 83036; 83735; 83880; 84484; 85025; 85610; 85730; 93005; 93010; 93017; 93306; 93971; 94760; 94761; 94799; 96374; 99285; A9270; A9500; C8929; J1815; J1940; J2785; J3475; Q9957; XXXXX

== ENCOUNTER 2018-08-28 09:47 | Inpatient (IN) ==
--- NOTE | 2018-08-28 10:16 | PROVIDER DOCUMENTATION ---
HPI-Respiratory General - General Stated Complaint: SOB Time Seen by Provider: 08/28/18 10:11 Source: patient, old records Allergies/Adverse Reactions: Patient Allergies Allergy/AdvReac Type Severity Reaction Status Date / Time Iodinated Contrast- Oral and Allergy RASH Verified 08/28/18 10:34 IV Dye [IV Dye] Home Medications: Home Medication List Medication Instructions Recorded Confirmed Last Taken Type Atorvastatin Calcium [Lipitor] 40 mg PO QHS 03/28/16 08/28/18 07/22/18 History Fenofibrate [Tricor] 145 mg PO QHS 03/28/16 08/28/18 07/22/18 History Metformin [Glucophage] 500 mg PO BID CC 03/28/16 08/28/18 07/22/18 History Multivitamins/Minerals [Centrum 1 tab PO DAILY 06/20/17 08/28/18 07/22/18 History Silver] [place]-3 Fatty Acids [Fish Oil] 1 cap PO BID 06/20/17 08/28/18 07/22/18 History Cholecalciferol (Vitamin D3) 5,000 unit PO DAILY 11/16/17 08/28/18 07/22/18 History [Vitamin D3] Cyanocobalamin/Folic AC/Vit B6 2 mg PO DAILY 11/16/17 08/28/18 07/22/18 History [Folbic Tablet] Fluticasone 50 Mcg Nasal [place] 1 spray TASHIA DAILY PRN 11/16/17 08/28/18 07/22/18 History [Flonase] Glimepiride 4 mg PO BID 11/16/17 08/28/18 07/22/18 History Insulin Detemir [Levemir] 30 units SQ DAILY 11/16/17 08/28/18 07/22/18 History Apixaban [Eliquis] 5 mg PO BID tablet 12/05/17 08/28/18 07/22/18 Rx Pantoprazole [Protonix] 40 mg PO BID tablet 12/05/17 08/28/18 07/22/18 Rx Albuterol Sulfate [Albuterol 1 - 2 inhaler INH DAILY PRN 01/05/18 08/28/1807/22 History Sulfate Hfa] Aspirin 81 mg PO DAILY chewtab 07/25/18 08/28/18 Unknown Rx Furosemide [Lasix] 20 mg PO DAILY 30 Days #30 tab 07/25/18 08/28/18 Unknown Rx Levothyroxine [Synthroid] 175 microgm PO DAILY@0700 30 Days 07/25/18 08/28/18 Unknown Rx #30 tab - History of Present Illness-Resp Nature of Presenting Problem: patient brought to ED w/ CC: dyspnea (especially on exertion, w/ ? worsening orthopnea but no specific PND) past 2 days. pt was adm here 1 mo. ago for exacerbattion of CHF. hx of reversal apical ischemic defect on nuclear perfusion study, managed medically to date. she denies fever/sputum/notable cough. she appears pale but denies known recent blood loss. received recent iron infusion for anemia. records review shows hx of CHF, paroxysmal afib as well as multiple DVTs, on Eliquis. last d/c med list: DISCHARGE MEDICATIONS: 1. Eliquis 5 mg b.i.d. 2. Aspirin 81 mg a day. 3. Lipitor 40 mg a day. 4. Vitamin D 5000 units a day. 5. Tricor 145 mg a day. 6. Flonase 1 puff each nostril daily p.r.n. 7. Foltx one daily. 8. Lasix 20 mg p.o. daily. 9. Icar, one a day. 10. Synthroid 175 mcg a day. 11. Cozaar 50 mg a day. 12. Centrum Silver 1 a day. 13. [place]-3, [place] 6, [place] 9 fish oil concentrate 1000 mg b.i.d.. 14. Protonix 40 mg b.i.d. Review of Systems - Adult - REVIEW OF SYSTEMS - ADULT Constitutional: reports: no symptoms reported Eyes: reports: no symptoms reported Ears, Nose, Mouth & Throat: reports: no symptoms reported Cardiovascular: reports: see HPI Respiratory: reports: see HPI Gastrointestinal: reports: no symptoms reported Genitourinary: reports: no symptoms reported Musculoskeletal: reports: no symptoms reported Integumentary: reports: no symptoms reported Neurological: reports: no symptoms reported Psychiatric: reports: no symptoms reported Endocrine: reports: no symptoms reported Hematologic/Lymphatic: reports: no symptoms reported Allergic/Immunologic: reports: no symptoms reported All Other Systems: Reviewed and Negative Past History - Adult - PAST MEDICAL HISTORY-ADULT Review of Records: reports: Old Records Reviewed Major Childhood Illnesses: reports: denies history Cardiovascular: reports: cardiac disease, A-Fib, blood clots (dvt), HTN, hyperlipidemia, palpitations Respiratory: reports: asthma Gastrointestinal: reports: GERD, other (hernia, stoma) Obstetrical/Gynecological: reports: denies history Genitourinary: reports: dialysis, kidney disease Musculoskeletal: reports: denies history Neurological: reports: other (diabetic neuropathy) Endocrine/Immune: reports: Diabetes, thyroid disorder Other Conditions: reports: denies history - PRIOR SURGERIES/PROCEDURES Surgical/Procedure History: reports: tonsillectomy, hernia repair, bowel surgery (multiple), other (ileostomy) - PRIOR HOSPITALIZATIONS Prior Hospitalizations: reports: for other non-related - IMMUNIZATION STATUS Childhood Immunizations: See Nurse Assessment Flu Vaccine: See Nurse Assessment - FAMILY HISTORY Family History: reviewed, not pertinent Physical Exam-General - PHYSICAL EXAM-ADULT Initial Vital Signs Reviewed: Yes (bradycardia noted; daughter reports hx of hyperkalemia) - CONSTITUTIONAL General Appearance: alert, no apparent distress, other (speaks in fluent sentences). negative: lethargic, slow to respond, obtunded - EYES Eyes: PERRL/EOMI, pale conjunctivae. negative: conjuctival exudate, sclera injected, scleral icterus, subconjunctival hemorrhage - HEAD, EARS, NOSE, MOUTH & THROAT HENMT: normocephalic/atraumatic, moist mucous membranes - NECK Neck: full range of motion, supple - RESPIRATORY Respiratory: chest non-tender, lungs clear, normal breath sounds - CARDIOVASCULAR Cardiovascular: normal peripheral pulses, regular rate, rhythm, bradycardia - GASTROINTESTINAL (ABDOMEN) Abdominal Exam: normal bowel sounds, soft, other (patient has large ventral hernia (overlies right thigh w/ patient on stretcher) w/ ostomy, normal appearing output w/o heme). negative: guarding, rigid, rebound, tenderness - LYMPHATIC Lymphatic: no adenopathy - MUSCULOSKELETAL Back Exam: normal inspection, no CVA tenderness Extremity: non-tender, no calf tenderness, pedal edema (1-2+, chronic). negative: slow capillary refill Peripheral Pulses: radial (R): 2+, radial (L): 2+ - SKIN Integumentary: normal turgor, warm/dry, pallor. negative: cyanosis, diaphoresis , ecchymosis, embolic lesions, jaundice, mottled, purpura, rash - NEUROLOGIC Neurologic: emt i/85 II-XII nml as tested, grossly normal, no motor/sensory deficits - PSYCHIATRIC Psych/Mental Status: normal mood/affect, normal thought content Progress - PLAN OF CARE/RESULTS Progress/Plan/Lab Results: Vital Signs - 8 hr 08/28/18 10:14 08/28/18 10:16 08/28/18 10:20 Temperature Pulse Rate 51 L Respiratory Rate 20 Blood Pressure 134/68 O2 Sat by Pulse Oximetry 99 97 98 08/28/18 10:26 08/28/18 10:30 08/28/18 12:00 Temperature 97.6 F Pulse Rate 53 L 50 L 46 L Respiratory Rate 18 12 16 Blood Pressure 134/68 O2 Sat by Pulse Oximetry 100 99 97 08/28/18 12:10 08/28/18 12:20 08/28/18 12:30 Temperature Pulse Rate 48 L 48 L 50 L Respiratory Rate 16 16 13 Blood Pressure O2 Sat by Pulse Oximetry 98 100 97 08/28/18 12:40 08/28/18 12:44 08/28/18 13:30 Temperature Pulse Rate 53 L 51 L 54 L Respiratory Rate 19 20 13 Blood Pressure 133/50 O2 Sat by Pulse Oximetry 99 99 100 08/28/18 13:32 08/28/18 13:40 08/28/18 13:50 Temperature Pulse Rate 51 L 48 L 50 L Respiratory Rate 20 13 14 Blood Pressure 124/62 O2 Sat by Pulse Oximetry 100 100 08/28/18 14:02 08/28/18 14:10 Temperature Pulse Rate 48 L 55 L Respiratory Rate 26 H 12 Blood Pressure 128/63 O2 Sat by Pulse Oximetry 97 98 Laboratory Results - last 24 hr 08/28/18 08/28/18 08/28/18 11:25 11:25 11:25 WBC 9.36 RBC 4.38 Hgb 12.1 Hct 37.5 MCV 85.6 MCH 27.6 MCHC 32.3 L RDW Std Deviation 15.8 H Plt Count 230 MPV 11.4 H Immature Gran % (Auto) 0.3 Neut % (Auto) 70.1 Lymph % (Auto) 18.3 L [place] % (Auto) 7.6 Eos % (Auto) 3.4 Baso % (Auto) 0.3 Immature Gran # (Auto) 0.03 Neut # (Auto) 6.56 H Lymph # (Auto) 1.71 [place] # (Auto) 0.71 H Eos # (Auto) 0.32 Baso # (Auto) 0.03 Sodium 136 Potassium 5.0 Chloride 96 L Carbon Dioxide 25 Anion Gap 15 BUN 44 H Creatinine 1.1 H Estimated GFR/1.73 m2 49 BUN/Creatinine Ratio 40 Glucose 236 H Calculated Osmolality 291 Calcium 10.0 Magnesium 1.6 Total Bilirubin 0.28 AST 27 ALT 17 Alkaline Phosphatase 50 Troponin T [id number] Pept 1784 H Total Protein 6.9 Albumin 4.1 Globulin 2.8 Albumin/Globulin Ratio 1.5 TSH Thyroxine (T4) 08/28/18 08/28/18 08/28/18 11:25 11:25 11:25 WBC RBC Hgb Hct MCV MCH MCHC RDW Std Deviation Plt Count MPV Immature Gran % (Auto) Neut % (Auto) Lymph % (Auto) [place] % (Auto) Eos % (Auto) Baso % (Auto) Immature Gran # (Auto) Neut # (Auto) Lymph # (Auto) [place] # (Auto) Eos # (Auto) Baso # (Auto) Sodium Potassium Chloride Carbon Dioxide Anion Gap BUN Creatinine Estimated GFR/1.73 m2 BUN/Creatinine Ratio Glucose Calculated Osmolality Calcium Magnesium Total Bilirubin AST ALT Alkaline Phosphatase Troponin T 0.019 Itr-P-Qnjdbjmogth Pept Total Protein Albumin Globulin Albumin/Globulin Ratio TSH 9.06 H Thyroxine (T4) 8.82 Orders Category Date Time Status Nursing- Obtain EKG once Care 08/28/18 10:31 Active Diabetic Diet Diet 08/28/18 13:50 Active CHEST-1 VIEW [RAD] Stat Exams 08/28/18 10:31 Completed CBC WITH DIFF [HEME] Stat Lab 08/28/18 11:25 Completed COMPREHENSIVE METABOLIC PANEL [CHEM] Stat Lab 08/28/18 11:25 Completed MAGNESIUM [CHEM] Stat Lab 08/28/18 11:25 Completed PRO B-NATRIURETIC PEPTIDE Stat Lab 08/28/18 11:25 Completed T4 Stat Lab 08/28/18 11:25 Completed TROPONIN T Stat Lab 08/28/18 11:25 Completed TSH Stat Lab 08/28/18 11:25 Completed 0.9% Sodium Chloride Inj [Ns] 500 ml Med 08/28/18 13:37 Discontinued IV 250 mls/hr EKG [EKG] Stat Ther 08/28/18 10:31 Draft Result Diagrams: 08/28/18 11:25 08/28/18 11:25 - REASSESSMENT Reassessment #2 Time Reassessed: 13:39 Status: unchanged (labs generally unremarkable; BNP @ 1739 is lower than last recorded assay here. BUN/Cr @ 44, and daughter feels her recent intake had been poor and is requesting IVF. I will give here cautious infusion, plan to send her home for PCP/Card fu/ Bradycardia noted, pt is on thyroid replacement, will check this also.) Reassessment #4 Time Reassessed: 16:51 Status: unchanged (pt' son is now here and is very reluctant to see her go home because of her bradycardia, says "she is about to crash; usually this is due to her potassium, or when she has fluid overload." pt remains ~ asymptomatic in room with stable VS albeit afib w/ bradycardia. 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 Crawford.) - CONSULTS/PCP/HOSPITALIST Notification #1 *Consult/PCP/Hospitalist*: Ulises (Hospitalist) Time Discussed: 17:05 Consult Disposition: Admit (admit to observ) #2 Consult: Quentin (for Ty) Time Discussed: 16:50 Consult Disposition: other (Hospitalist to admit, they will consult) Departure - Departure Date of Disposition Decision: 08/28/18 Time of Disposition Decision: 17:06 DIAGNOSIS: AF (paroxysmal atrial fibrillation), Bradycardia, CHF (congestive heart failure ) Disposition: ADMITTED INPATIENT 09 Certified Medical Emergency: Emergent Condition: Stable Referrals and Follow-Ups: Eugenia Abdi MD [Primary Care Provider] - - Critical Care Note This patient required my direct & personal management of CC.: No Attestation - Physician/ VALE Attestation The physician spent face to face time with patient:: Yes Advanced Practice Provider documentation review:: Supervising physician onsite and consulted in the evaluation and care of this patient. The physician did have a face to face encounter with the patient.
--- NOTE | 2018-08-28 10:53 | ED EKG INTERP ---
This chart was entered by Adeline Granados Scribe, acting as scribe for Diallo Porras MD. EKG Interpretation - EKG Time of EKG reading by physician:: 10:45 EKG Read and Signed by:: Diallo Porras EKG Interpretation (*Must complete 3 of following elements*): Abnormal Rate: 67 Rhythm: afib w/ premature venticuar or aberrantly conducted complexes [place]: normal QRS: normal SC Interval: normal Comments: st and t wave abnormality, consider inferolateral ischemia Attestation - Physician/ VALE Attestation Patient care was provided by Advanced Practice Provider:: No The physician spent face to face time with patient:: Yes Advanced Practice Provider documentation review:: Supervising physician onsite and consulted in the evaluation and care of this patient. The physician did have a face to face encounter with the patient. This chart was documented by the indicated scribe, (Adeline Granados Scribe) and accurately reflects the services I performed and decisions made by me, Diallo Porras MD, as attested by the provider's signature.
--- NOTE | 2018-08-28 10:59 | Diag Imaging Result Doc PS360 ---
EXAM: CHEST-1 VIEW HISTORY: dyspnea TECHNIQUE: Single view COMPARISON: 07/24/2018 FINDINGS: The lungs are well expanded. The heart is borderline mildly enlarged. The vessels are not distended. There are no infiltrates. No effusion identified. IMPRESSION: Stable chest Electronically signed by Mustapha Reynoso 08/28/2018 10:57 AM
[2018-08-28 11:39] LABS: BASO# 0.03 X1000 (0.0-0.2); BASO% 0.3 % (0.0-0.8); EOS# 0.32 X1000 (0.0-0.7); EOS% 3.4 % (0.0-10.0); HEMATOCRIT 37.5 % (37.0-47.0); HEMOGLOBIN 12.1 g/dL (12.0-16.0); IMM GRAN# 0.03 X1000 (0.0-0.04); IMM GRAN% 0.3 % (0.0-0.5); LYMPH# 1.71 X1000 (1.2-3.4); LYMPH% 18.3 % (20.5-51.1); MCH 27.6 PG (27-31); MCHC 32.3 g/dL (33-37); MCV 85.6 FL (81-99); MONO# 0.71 X1000 (0.11-0.59); MONO% 7.6 % (1.7-9.3); MPV 11.4 FL (7.4-10.4); NEUT# 6.56 X1000 (1.4-6.5); NEUT% 70.1 % (42.2-75.2); PLT 230 X1000 (130-400); RBC 4.38 XMIL (4.2-5.4); RDW 15.8 % (11.5-14.5); WBC 9.36 X1000 (4.8-10.8)
[2018-08-28 11:50] LABS: ALB/GLOB RATIO 1.5; ALBUMIN 4.1 g/dL (3.5-5.0); CREATININE 1.1 mg/dL (0.5-0.9); MAGNESIUM 1.6 mg/dL (1.5-2.7); TOTAL BILIRUBIN 0.28 mg/dL (0.20-1.00); TOTAL PROTEIN 6.9 g/dL (6.3-8.3)
--- NOTE | 2018-08-28 13:29 | EKG Report ---
Test Performed on : 08/28/2018 10:45:13 AM Test Reason : dyspnea Blood Pressure : / mmHG Vent. Rate : 067 BPM Atrial Rate : 061 BPM P-R Int : 000 ms QRS Dur : 098 ms QT Int : 432 ms P-R-T Axes : 000 -02 031 degrees QTc Int : 456 ms Atrial fibrillation. with premature ventricular or aberrantly conducted complexes. Cannot rule out Anterior infarct , age undetermined ST & T wave abnormality, consider inferolateral ischemia Abnormal ECG When compared with ECG of 24-JUL-2018 20:43, Atrial fibrillation. has replaced Sinus rhythm. Incomplete right bundle branch block is no longer present Minimal criteria for Anterior infarct are now present T wave inversion now evident in Anterolateral leads Unconfirmed Result
[2018-08-28] MEDS ORDERED: NS 500 ML IV ONE (13:37)
[2018-08-28] MEDS ORDERED: FLONASE NAS PRN (17:48)
[2018-08-28] MEDS ORDERED: VENTOLIN HFA INH PRN (17:48)
[2018-08-28] MEDS ORDERED: FISH OIL CONCENTRATE PO SCH (21:00)
[2018-08-28] MEDS: LIPITOR PO SCH (22:29)
[2018-08-28] MEDS: TRICOR PO SCH (22:29)
[2018-08-28] MEDS: ELIQUIS PO SCH (22:29)
[2018-08-28 23:08] LABS: URINE SOURCE CLEAN CATCH
[2018-08-28 23:34] LABS: BILIRUBIN URINE NEGATIVE (NEGATIVE); BLOOD URINE NEGATIVE (NEGATIVE); COLOR YELLOW; GLUCOSE URINE 300 mg/dL (NEGATIVE); KETONE URINE NEGATIVE (NEGATIVE); LEUKOCYTES URINE SMALL (NEGATIVE); NITRITE URINE NEGATIVE (NEGATIVE); PH URINE 5.5; PROTEIN URINE TRACE mg/dL (NEGATIVE); SP GRAVITY URINE 1.003; TURBIDITY URINE CLEAR (CLEAR); UROBILINOGEN URINE NORMAL (NORMAL)
[2018-08-28 23:35] LABS: UR EPITHELIAL CELLS <10 /HPF (<10); URINE BACTERIA NEGATIVE /HPF; URINE RBC <10 /HPF (<10); URINE WBC <10 /HPF (<10)
[2018-08-28] MEDS: PROTONIX PO SCH (23:47)
[2018-08-29 05:59] LABS: HEMATOCRIT 32.9 % (37.0-47.0); HEMOGLOBIN 10.6 g/dL (12.0-16.0); MCH 27.7 PG (27-31); MCHC 32.2 g/dL (33-37); MCV 86.1 FL (81-99); MPV 11.1 FL (7.4-10.4); RBC 3.82 XMIL (4.2-5.4); RDW 15.9 % (11.5-14.5); WBC 5.69 X1000 (4.8-10.8)
[2018-08-29 06:19] LABS: CALCIUM 9.6 mg/dL (8.8-10.2); CREATININE 1.1 mg/dL (0.5-0.9); POTASSIUM 4.1 mmol/L (3.5-5.1)
[2018-08-29] MEDS: HUMALOG SUBQ SCH ×4 (06:48→22:59)
[2018-08-29] MEDS ORDERED: SYNTHROID PO SCH (07:00)
--- NOTE | 2018-08-29 08:06 | HISTORY AND PHYSICAL ---
PRIMARY CARE PHYSICIAN: Dr. Eugenia Abdi. ARCHERY EQUIPMENT REPAIRER: Dr. Crawford. CHIEF COMPLAINT: Dyspnea and weakness. HISTORY OF PRESENT ILLNESS: Ms. Zimmerman is a 73-year-old female known to our service. She has a history of paroxysmal atrial fibrillation, coronary artery disease, diastolic heart failure, CKD and multiple others who presents with around 3-4 days of slightly worsening shortness of breath and weakness upon standing. However, she denied any syncope, loss of consciousness.Three days ago, she noticed her heart rate had gone much lower than normal, into the 40s and 50s. She called her PCP who instructed her to keep an eye on it and if anything got worse to go to the ER. On Friday, she did have some increased output of her ostomy but no overt abdominal pain and no nausea or vomiting. Overall, her shortness of breath has slightly worsened and her bradycardia has persisted which ultimately brought her to the ER. Here in the ER, she had an EKG done which initially appears to be a junctional bradycardia with PVCs. Her cardiac enzymes are negative thus far. ProBNP is slightly elevated at 1784. Otherwise, her lab data is largely unremarkable. Interestingly, she is not on any rate blocking medications. In fact, she has been taken off any antihypertensives as well as she was told her blood pressure is low. She does not report any overt lower extremity edema but she does report some dyspnea , orthopnea and slight dyspnea on exertion. Her chest x-ray in the ER is negative for anything acute and she is hemodynamically stable but maintaining a bradycardia in the 40s to 50s. Given her history, we will go ahead and admit her for further treatment and evaluation. PAST MEDICAL HISTORY: Coronary artery disease, diastolic heart failure, EF 65-70 %, diabetes mellitus type 2, CKD stage 3 to 4, hypertension, hypothyroidism, morbid obesity, massive abdominal hernia, Ileostomy secondary to history of small bowel obstruction, GERD, paroxysmal atrial fibrillation, Iron deficiency anemia. SURGICAL HISTORY: Tonsillectomy, abdominal hernia repair, small bowel obstruction and resultant ileostomy. SOCIAL HISTORY: She lives alone but her son checks on her on a daily basis. She denies tobacco, alcohol or drug use. ALLERGIES: To oral and IV dye. HOME MEDICATIONS: 1. Albuterol 1-2 puffs as needed. 2. Eliquis 5 mg b.i.d. 3. Atorvastatin 40 mg nightly. 4. Vitamin D3 5,000 units daily. 5. Tricor 145 mg nightly. 6. Flonase as needed. 7. Lasix 20 mg as needed. 8. Glimepiride 4 mg p.o. b.i.d. 9. Levemir 30 units subcu daily. 10.Icar C one daily. 11.Synthroid 175 mcg daily. 12.Metformin 500 mg p.o. b.i.d. 13.Centrum Silver multivitamin 1 daily. 14.Fish oil 1 b.i.d. 15.Protonix 40 mg b.i.d. REVIEW OF SYSTEMS: Fourteen point review of systems obtained and found to be negative with the exception of the HPI. PHYSICAL EXAMINATION: VITAL SIGNS: Blood pressure 128/63, heart rate is 48, respiratory rate is 18, O2 sat is 97% on room air. Temperature is 97.6 degrees. GENERAL: Morbidly obese female lying in the hospital bed in no acute distress. NEUROLOGICAL: Awake, alert and oriented. Follows commands without focal deficits. HEENT: Head is atraumatic, normocephalic. Her pupils are equal, round and reactive to light. Oral mucosa is moist. The trachea is midline. There is no JVD. CHEST: Clear to auscultation. CV: Bradycardic but regular. S1, S2 is noted. No appreciable murmurs. GI: Massive hernia noted with ileostomy site that is clean, dry and intact. Bowel sounds are active. EXTREMITIES: Trace edema. Pulses are1+ bilaterally. Extremities are warm and dry. DIAGNOSTIC DATA: Chest x-ray is negative. EKG: Junctional bradycardia with PVCs. WBC 9.36, hemoglobin 12.1, hematocrit 37.5, platelet count 230,000. Sodium 136, potassium 5, chloride 96, CO2 25, anion gap 15, BUN 44, creatinine 1.1, glucose 236, calcium 10. LFTs normal. ProBNP 1784. Albumin 4.1. TSH 9.06. Free T4 8.82. ASSESSMENT AND PLAN: 1. Symptomatic junctional bradycardia: In the absence of any rate blocking medications, profound hypothyroidism or acute GA, it is possible she has a sick sinus syndrome. We will monitor her rhythm on tele and consult cardiology. We will trend her cardiac enzymes. She denies any chest pain and there is no evidence of coronary ischemia at this time. 2. History of diastolic heart failure. She appears to be euvolemic at this time. We will continue with her home 20 mg dose of Lasix daily, monitor her I's and O's and daily weights. 3. Diabetes mellitus. We will continue her home insulin, hold any oral medications. 4. CKD. BUN and creatinine baseline. We will continue to monitor. 5. Paroxysmal atrial fibrillation. Stable. Currently appears to be junctional. We will continue her Eliquis. 6. Hypothyroidism. Continue her home meds. Stable. 7. Massive abdominal hernia with ileostomy. This is overall stable. 8. DVT prophylaxis with her home Eliquis. Further recommendations to follow. Dictated by CLINT Hernandez for Jarvis Muñoz MD cc: CLINT Hernandez MD I have seen and examined Ms Zimmerman today. Son was at the bedside I have also reviewed her labs and imaging studies. Ms Zimmerman presents with symptomatic bradycardia.Medications have been reviewed Cardiology has been consulted as well. I agree with the above HPI and the plan reflects my opinion discussed with the ALUMINUM SIDING INSTALLER. DARVIN
[2018-08-29] MEDS: FISH OIL CONCENTRATE PO SCH ×2 (09:18→23:00)
[2018-08-29] MEDS: VITAMIN D PO SCH (09:18)
[2018-08-29] MEDS: FOLTX PO SCH (09:18)
[2018-08-29] MEDS: LEVEMIR SUBQ SCH (09:18)
[2018-08-29] MEDS: ASPIRIN PO SCH (09:18)
[2018-08-29] MEDS: PROTONIX PO SCH ×2 (09:18→23:00)
[2018-08-29] MEDS: ELIQUIS PO SCH ×2 (09:18→23:00)
[2018-08-29] MEDS: LASIX PO SCH ×2 (09:18→09:29)
[2018-08-29] MEDS: CENTRUM SILVER PO SCH (09:18)
--- NOTE | 2018-08-29 14:04 | PROGRESS NOTE ---
DATE: 08/29/2018 SUBJECTIVE: This morning Ms. Zimmerman refers to be doing a whole lot better. She denies any shortness of breath. She still says she feels slightly weak. Overnight, I understand that Ms. Zimmerman became severely bradycardic, however it appears she was sleeping at the time. OBJECTIVELY: This morning blood pressure is 153/77, pulse is 71, respirations 15, temperature 97.8 degrees.General: Ms. Zimmerman is a 73-year-old morbidly obese female. She is in bed. She is not in any cardiopulmonary distress. Mucosa is pink and moist. Anicteric. Acyanotic. Neck: Supple. Chest: Good air entry bilateral. Did not hear any crepitations. No rhonchi. Cardiovascular: Regular rate and rhythm. Abdomen: Soft. It is distended. There is an ostomy bag in place with fecal material with a severe large abdominal hernia. OFFSHORE WIND OPERATIONS MANAGER: Patient is awake, oriented. Extremities: There is trace pedal edema bilateral. LABORATORY DATA: WBC is 5.69, hemoglobin is 10.6, platelet count of 219,000. Chemistry is also reviewed, unremarkable except for creatinine of 1.1 which is fairly patient baseline. CURRENT MEDICATIONS: Have also been reviewed. DIAGNOSTIC STUDIES: 1. A chest x-ray yesterday did show borderline enlarged heart. Vessels are not distended. An EKG on admission yesterday did show possible junctional rhythm with PACs. The patient does carry a history of paroxysmal atrial fibrillation. ASSESSMENT: 1. Symptomatic junctional bradycardia. The patient is not on any rate blocking agent. Overnight, she seems to have been remarkably bradycardic into the 30s. However, this morning telemetry actually looks like sinus rhythm back to 60s to 70s as her rate and she does not seem to be symptomatic at this point. It is very possible Ms. Zimmerman could have a sick sinus syndrome and we are waiting for cardiology to evaluate her. 2. History of diastolic heart failure. The patient is currently euvolemic, probably on the side of slight dehydration. We would withhold her diuretic therapy. 3. Diabetes mellitus, controlled. 4. Hypothyroidism, stable. TSH was extremely high, which would be consistent with either noncompliance or insufficient supplementation. The patient is back on her medication at the same dose. Her heart rate is now okay. I would rather repeat this test in about 2 weeks before making any changes to her current medications. 5. History of ulcerative colitis status post total abdominal colectomy with ostomy bag in place. Ms. Zimmerman is doing fairly okay. Heart rate is back to normal sinus. Will be pending Cardiology evaluation today and go from there. cc: Jarvis Muñoz MD MTDD
[2018-08-29] MEDS ORDERED: LASIX IV ONE (14:35)
--- NOTE | 2018-08-29 18:13 | CONSULTATION ---
DATE OF CONSULTATION: 08/29/2018 IMPRESSION: 1. Acute on chronic congestive heart failure in the setting of normal left ventricular ejection fraction. This is probably multifactorial related to obesity, probable diastolic heart failure and chronic kidney disease. 2. Tachycardia/bradycardia syndrome with paroxysmal atrial fibrillation alternating with junctional bradycardia and sinus rhythm. The patient has no history of syncope. She has demonstrated heart rates below 40 beats per minute only at night while asleep. At present her tachycardia/bradycardia syndrome does not appear to warrant permanent pacemaker. 3. Morbid obesity. 4. Hypothyroidism. Patient's TSH is significantly elevated suggesting under replacement of her thyroid hormone. She relates that dose was reduced not too long ago. 5. History of deep vein thrombosis. 6. Mild to moderate coronary atherosclerosis by coronary angiography 2014 managed medically. Patient continues without angina. 7. Hypertension. 8. Hyperlipidemia. 9. Type 2 diabetes mellitus. 10. Possible obstructive sleep apnea. RECOMMENDATIONS: 1. Diurese gently. 2. Continue long-term anticoagulation. 3. At present she does not appear to warrant permanent pacing. At time of discharge be reasonable for to have a 48 hour Holter study to further screen for inappropriate bradycardia. Thus far she has demonstrated bradycardia below 40 beats per minute only at night while asleep. Suggest getting 48 hour Holter study at discharge and have her follow up with Dr. Crawford thereafter. 4. Augment thyroid hormone replacement to her previous dose of 200 mcg daily. 5. Continue long-term anticoagulation. HISTORY: This 73-year-old white female with past history of obesity, hypertension, type 2 diabetes mellitus, previous DVT managed with long-term anticoagulation, mild to moderate coronary atherosclerosis by coronary angiography in 2014 and tachycardia/bradycardia syndrome without presyncope/syncope was admitted to the emergency room yesterday afternoon. She has been having some increased shortness of breath the last couple days and for this reason, came to the emergency room for evaluation. She had pro B-natriuretic peptide level around 1700. However she demonstrated normal oxygen levels on room air and chest x-ray did not appear to demonstrate pulmonary congestion. At the insistence of family she was admitted for further treatment. She has demonstrated sinus rhythm alternating with junctional rhythm. Heart rate has been anything from 50 beats per minute to 70 beats per minute. While she was asleep overnight she dropped her heart rate into the 30 beat per minute range. There is no history of syncope or presyncope. She is unaware of her arrhythmia that she has not had any palpitations. There has been no chest pain. PAST MEDICAL HISTORY: 1. Obesity. 2. Hypertension. 3. Type 2 diabetes mellitus. 4. Mild to moderate coronary atherosclerosis by previous coronary angiography in 2015 for which she has been treated medically. 5. Previous DVT. Patient continues on long-term anticoagulation. 6. Tachycardia/bradycardia syndrome demonstrated in the past. She has previously demonstrated paroxysms of atrial fibrillation as well as junctional rhythm as well as sinus rhythm. She has been asymptomatic from a standpoint of her tachycardia/bradycardia syndrome. PAST SURGICAL HISTORY: 1. Includes tonsillectomy, abdominal hernia repair and previous laparotomy for small bowel obstruction, resultant ileostomy. 2. Chronic kidney disease stage 3 to 4. 3. Massive abdominal hernia. 4. Gastroesophageal reflux disease. 5. Hypothyroidism. ALLERGIES: She is allergic to oral and intravenous contrast dye. MEDICATIONS PRIOR TO ADMISSION: As listed. It is noteworthy that her thyroid hormone dose was reduced at some point over the past year from 200 mcg daily to 175 mcg daily according to the patient. SOCIAL HISTORY: She does not smoke nor use alcohol. She lives alone. FAMILY HISTORY: Negative for premature coronary disease. REVIEW OF SYSTEMS: Pulmonary: Noteworthy for recent shortness of breath but negative for orthopnea. There has been no significant cough. She is not aware of snoring or daytime somnolence. Gastrointestinal: Noncontributory. Constitutional: Negative/noncontributory with 14 total systems reviewed. PHYSICAL EXAMINATION: General: This is a morbidly obese, older white female in no distress. Vital signs: Blood pressure 153/77, heart rate 71, oxygen saturation 98% on room air. HEENT: Extraocular movements intact. Mucous membranes are moist. Neck: Supple. No jugular venous distention. There are no carotid bruits. Chest: Clear to auscultation. Cardiac Exam: Reveals a regular rate and rhythm without appreciable murmur or gallop. Abdomen: Soft. Bowel sounds audible. Extremities: Demonstrate mild edema distal left lower extremity with chronic venous stasis changes with history of previous DVT in left lower extremity. Neurologic: Reveals her to be alert and fully oriented. Speech is fluent. She moves all 4 extremities equally well. LABORATORY DATA: Includes a white blood cell count of 5.69, hematocrit 32.9, hemoglobin 10.6, platelet count 219,000, sodium 137, potassium 4.1, chloride 102, carbon dioxide 27, BUN 34, creatinine 1.1, glucose 251. Initial troponin 0.015, followup troponin 0.016, initial CPK 109, followup CPK 97. Pro B-natriuretic peptide level obtained yesterday 1783. TSH 9.06. PERTINENT DATA: Twelve lead EKG demonstrates junctional rhythm with occasional premature ventricular complex and nonspecific ST and T-wave abnormality. Heart rate 67 beats per minute. cc: Vinay Saavedra MD
[2018-08-29] MEDS: TRICOR PO SCH (23:00)
[2018-08-29] MEDS: LIPITOR PO SCH (23:00)
[2018-08-30] MEDS ORDERED: INSULIN PEN NEEDLES ONE ×2 (05:45→15:09)
[2018-08-30 06:40] LABS: HEMATOCRIT 35.6 % (37.0-47.0); HEMOGLOBIN 11.5 g/dL (12.0-16.0); MCH 28.1 PG (27-31); MCHC 32.3 g/dL (33-37); MPV 11.1 FL (7.4-10.4); RBC 4.09 XMIL (4.2-5.4); WBC 5.94 X1000 (4.8-10.8)
[2018-08-30] MEDS: HUMALOG SUBQ SCH ×2 (06:45→11:41)
[2018-08-30] MEDS ORDERED: SYNTHROID PO SCH (07:00)
[2018-08-30 07:07] LABS: CALCIUM 9.2 mg/dL (8.8-10.2); MAGNESIUM 1.6 mg/dL (1.5-2.7)
[2018-08-30] MEDS: CENTRUM SILVER PO SCH (10:47)
[2018-08-30] MEDS: FISH OIL CONCENTRATE PO SCH (10:47)
[2018-08-30] MEDS: VITAMIN D PO SCH (10:47)
[2018-08-30] MEDS: PROTONIX PO SCH (10:47)
[2018-08-30] MEDS: ASPIRIN PO SCH (10:47)
[2018-08-30] MEDS: ELIQUIS PO SCH (10:47)
[2018-08-30] MEDS: FOLTX PO SCH (10:48)
[2018-08-30] MEDS: LEVEMIR SUBQ SCH (10:48)
[2018-08-30 11:54] VITALS: BP 177/83
--- NOTE | 2018-08-30 21:54 | DISCHARGE SUMMARY ---
ADMISSION DATE: 08/28/2018 DISCHARGE DATE: 08/30/2018 DISPOSITION: Home. FOLLOW-UP: 1. Dr. Abdi. 2. Dr. Crawford. CONSULTATION DURING THIS ADMISSION: Cardiology was consulted. The patient was seen by Dr. Crawford. INVASIVE PROCEDURES DONE DURING THIS ADMISSION: None. IMAGING STUDIES OF SIGNIFICANCE: 1. A chest x-ray shows a stable chest. 2. Multiple EKGs were done, initial one did show some junctional rhythm. Subsequently the patient was in sinus with normal rate. ADMISSION DIAGNOSES: 1. Symptomatic junctional bradycardia. 2. History of diastolic heart failure. 3. Chronic kidney disease. 4. Paroxysmal atrial fibrillation. 5. Hypothyroidism. 6. Massive abdominal hernia with ileostomy. DIAGNOSES AT THE TIME OF DISCHARGE: 1. Symptomatic junctional bradycardia. The patient also has history of paroxysmal atrial fibrillation. During the hospital course she was some sinus rhythm with a rate of about 60s to 70s. There was a concern that the patient could have sick sinus syndrome and needs to follow up with Cardiology. 2. History of diastolic heart failure, currently euvolemic. 3. Diabetes mellitus. 4. Hypothyroidism. The patient presented with a thyroid stimulating hormone of 9.06. Synthroid was increased. 5. Large abdominal hernia status post ileostomy. 6. Acute kidney injury. DISCHARGE MEDICATIONS: 1. Atorvastatin 40 mg p.o. at bedtime. 2. Metformin 500 b.i.d. 3. Multivitamins. 4. Glimepiride 4 mg b.i.d. 5. Insulin Levemir 30 units daily. 6. Apixaban 5 mg b.i.d. 7. Pantoprazole 40 mg b.i.d. 8. Aspirin 81 mg daily. 9. Furosemide 20 mg p.o. p.r.n. 10. Levothyroxine 200 mcg p.o. daily. PRESENTING COMPLAINT: Dyspnea and weakness. HISTORY OF PRESENTING COMPLAINT: Ms. Zimmerman is a 73-year-old female who is known to have paroxysmal atrial fibrillation, diastolic heart failure, multiple episodes of DARREN, who came into the emergency department because of shortness of breath and weakness upon standing. She did deny syncope, but she noted that her pulse was about 40s to 50s at home. She notified her primary care doctor who advised her to come to the emergency department. Upon presenting to the emergency department, initial evaluation did reveal junctional bradycardia with PVCs. The patient was admitted for further medical care. HOSPITAL COURSE: Ms. Zimmerman was admitted to the medical floor under telemonitoring. Initially her heart rate was mostly in the 50s. At one point I was told that she had a pulse in the late 30s to early 40s, but she was sleeping. About a day later her pulse normalized on its own, and the rhythm was sinus throughout. The patient was seen by Cardiology (Dr. Crawford). He did recommend the patient to be evaluated for Holter monitoring, and that at some point she will need to be evaluated by pacemaker; however, not at this particular moment. Of note, Ms. Zimmerman is not on any rate control medications. This morning she refers to feel okay. No shortness of breath and no dizziness. She feels stronger. Discharge vital sign, blood pressure is 127/56, pulse is 70, respirations 16, temperature is 97.6 degrees. Physical examination is unremarkable except for the large abdominal hernia with ileostomy bag which has fecal material in it. She does not have any evidence of fluid overload. She looks euvolemic. She is therefore being discharged in stable condition. She is going to follow up with Dr. Crawford and Dr. Abdi. All the discharge instructions have been discussed with her and she voices understanding. TIME SPENT: Time spent for discharge is 36 minutes. cc: MD Eugenia Fonseca MD Luis N. Villanueva, MD
--- NOTE | 2018-08-31 07:56 | EKG Report ---
Test Performed on : 08/28/2018 11:56:23 PM Test Reason : Bradycardia Blood Pressure : / mmHG Vent. Rate : 064 BPM Atrial Rate : 064 BPM P-R Int : 180 ms QRS Dur : 114 ms QT Int : 458 ms P-R-T Axes : 081 -17 026 degrees QTc Int : 472 ms Sinus rhythm. with marked sinus arrhythmia. Low voltage QRS Junctional ST depression, probably abnormal Abnormal ECG When compared with ECG of 28-AUG-2018 10:45, (Unconfirmed) Sinus rhythm. has replaced Atrial fibrillation. T wave inversion no longer evident in Anterolateral leads Confirmed by Rikki Rosales MD ([id number]) on 08/31/2018 9:12:31 PM
--- NOTE | 2018-08-31 07:58 | EKG Report ---
Test Performed on : 08/29/2018 1:56:24 PM Test Reason : symptomatic bradycardia Blood Pressure : / mmHG Vent. Rate : 072 BPM Atrial Rate : 072 BPM P-R Int : 184 ms QRS Dur : 132 ms QT Int : 426 ms P-R-T Axes : 035 -21 017 degrees QTc Int : 466 ms Normal sinus rhythm. Right bundle branch block Abnormal ECG When compared with ECG of 28-AUG-2018 23:56, (Unconfirmed) Right bundle branch block is now present Confirmed by Bobby DAVIES, Rikki Brito ([id number]) on 08/31/2018 9:12:53 PM
== END 2018-08-30 15:24 | disposition home health service (06) | DRG 309 ==
LOC: SUPCPDRO → ED 09:47 → 4N 19:29
PROVIDERS: ATTEND Internal Medicine
CPT/HCPCS: 71010; 71045; 80048; 80053; 81001; 82550; 82948; 83735; 83880; 84436; 84443; 84484; 85025; 85027; 87077; 87088; 87186; 93005; 93010; 96360; 96361; 99285; A9270; J1815; J1940; J7040; XXXXX

== ENCOUNTER 2019-02-15 10:47 | Inpatient (IN) ==
[2019-02-15 11:46] LABS: INR 1.37; PROTIME 17.1 Seconds (11.0-16.0)
[2019-02-15 11:47] LABS: PTT 31.4 Seconds (22.3-41.8)
[2019-02-15 11:58] LABS: BASO# 0.02 X1000 (0.0-0.2); BASO% 0.1 % (0.0-0.8); HEMATOCRIT 27.9 % (37.0-47.0); HEMOGLOBIN 8.7 g/dL (12.0-16.0); IMM GRAN% 0.3 % (0.0-0.5); LYMPH# 0.89 X1000 (1.2-3.4); LYMPH% 2.8 % (20.5-51.1); MCH 22.7 PG (27-31); MCHC 31.2 g/dL (33-37); MCV 72.7 FL (81-99); MONO# 1.29 X1000 (0.11-0.59); MPV 10.8 FL (7.4-10.4); NEUT# 29.67 X1000 (1.4-6.5); NEUT% 92.8 % (42.2-75.2); PLT 315 X1000 (130-400); RBC 3.84 XMIL (4.2-5.4); RDW 15.3 % (11.5-14.5); WBC 31.97 X1000 (4.8-10.8)
--- NOTE | 2019-02-15 12:03 | Diag Imaging Result Doc PS360 ---
EXAM: CHEST-1 VIEW HISTORY: sob TECHNIQUE: Chest single view COMPARISON: 11/14/2018 FINDINGS: The lungs are well expanded. The heart is not enlarged. Left-sided pacemaker. There is central vascular prominence. There are no infiltrates. No effusion identified. IMPRESSION: Central vascular prominence. Electronically signed by Mustapha Reynoso 02/15/2019 12:00 PM
[2019-02-15 12:04] LABS: BANDS 12 % (0-1); HYPOCHROM 1+; LYMPHS 4 % (21-51); MICROCYTOSIS 2+; SEGS 84 % (42-75)
--- NOTE | 2019-02-15 12:05 | ED EKG INTERP ---
This chart was entered by Yolanda Muniz Scribe, acting as scribe for Deandre Guzmán MD. EKG Interpretation - EKG Time of EKG reading by physician:: 11:03 EKG Read and Signed by:: Deandre Guzmán EKG Interpretation (*Must complete 3 of following elements*): Abnormal Rate: 69 Rhythm: NSR [place]: normal QRS: RBB, other (nonspecific intraventricular block) OR Interval: normal ST Wave: non-specific ST changes Attestation - Physician/ VALE Attestation Patient care was provided by Advanced Practice Provider:: No The physician spent face to face time with patient:: No Advanced Practice Provider documentation review:: Supervising physician onsite and consulted in the evaluation and care of this patient. The physician did not have a face to face encounter with the patient. This chart was documented by the indicated scribe, (Yolanda Muniz Scribe) and accurately reflects the services I performed and decisions made by Ramirez carrillo Kent A., MD, as attested by the provider's signature.
[2019-02-15] MEDS ORDERED: ROCEPHIN 1 GM in NS 50 ML IV ONE (12:07)
[2019-02-15] MEDS ORDERED: VANCOMYCIN 1 GM/NS 1 GM/250 ML IVPB IV ONE ×2 (12:07→18:00)
[2019-02-15 12:15] LABS: ALB/GLOB RATIO 1.3; ALBUMIN 3.6 g/dL (3.5-5.0); CALCIUM 9.5 mg/dL (8.8-10.2); CREATININE 1.5 mg/dL (0.5-0.9); POTASSIUM 4.9 mmol/L (3.5-5.1); TOTAL BILIRUBIN 0.59 mg/dL (0.20-1.00); TOTAL PROTEIN 6.4 g/dL (6.3-8.3)
[2019-02-15] MEDS ORDERED: HUMULIN R IV ONE (12:16)
[2019-02-15 12:34] LABS: URINE SOURCE CATH
[2019-02-15 12:48] LABS: BILIRUBIN URINE NEGATIVE (NEGATIVE); BLOOD URINE SMALL (NEGATIVE); COLOR YELLOW; GLUCOSE URINE >1000 mg/dL (NEGATIVE); KETONE URINE NEGATIVE (NEGATIVE); LEUKOCYTES URINE NEGATIVE (NEGATIVE); NITRITE URINE NEGATIVE (NEGATIVE); PROTEIN URINE 300 mg/dL (NEGATIVE); SP GRAVITY URINE 1.017; TURBIDITY URINE HAZY (CLEAR); UROBILINOGEN URINE NORMAL (NORMAL)
[2019-02-15 12:49] LABS: UR EPITHELIAL CELLS >10 /HPF (<10); URINE BACTERIA NEGATIVE /HPF; URINE RBC <10 /HPF (<10); URINE WBC <10 /HPF (<10)
--- NOTE | 2019-02-15 12:54 | EKG Report ---
Test Performed on : 02/15/2019 10:58:18 AM Test Reason : WEAKNESS Blood Pressure : / mmHG Vent. Rate : 069 BPM Atrial Rate : 069 BPM P-R Int : 170 ms QRS Dur : 130 ms QT Int : 406 ms P-R-T Axes : 011 -02 021 degrees QTc Int : 435 ms Normal sinus rhythm. Nonspecific intraventricular block Abnormal ECG When compared with ECG of 14-NOV-2018 19:38, Previous ECG has undetermined rhythm, needs review Nonspecific T wave abnormality has replaced inverted T waves in Inferior leads QT has shortened Unconfirmed Result
[2019-02-15] MEDS ORDERED: NS 1,000 ML IV ONE (14:31)
[2019-02-15] MEDS ORDERED: ZOFRAN IV PRN (14:44)
[2019-02-15] MEDS ORDERED: DUONEB (A & A) INH PRN (14:44)
[2019-02-15] MEDS ORDERED: TYLENOL PO PRN (14:44)
[2019-02-15 15:00] LABS: BE 5.8 mmoll (-3.0-3.0); BLOOD TYPE ARTERIAL; HCO3-(ACT) 29.4 mmoll (20.0-26.0); METHB 1.6 % (0.0-1.5); O2HB 91.3 % (95.0-99.0); PCO2(98.6) 40 mmHg (35-45); PO2(98.6) 63 mmHg (60-100); SAMPLE BLOOD; SAO2 94.9 % (95.0-100.0); THB 8.6 g/dL (11.5-17.4); pH(98.6) 7.48 (7.35-7.45)
[2019-02-15] MEDS ORDERED: VANCOMYCIN IV PER PHARMACY MISC SCH (15:00)
[2019-02-15 15:01] LABS: ALLEN TEST YES; MODALITY CANNULA; O2(CT) 11.1 mL/dL (15.0-23.0)
--- NOTE | 2019-02-15 15:36 | PROVIDER DOCUMENTATION ---
This chart was entered by Yolanda Muniz Scribe, acting as scribe for Bailee Padilla MD. HPI-General Adult - General Chief Complaint: Weakness Stated Complaint: LOW IRON/WEAKNESS Time Seen by Provider: 02/15/19 11:27 Source: patient, family Allergies/Adverse Reactions: Patient Allergies Allergy/AdvReac Type Severity Reaction Status Date / Time Iodinated Contrast- Oral and Allergy RASH Verified 08/28/18 10:34 IV Dye [IV Dye] Home Medications: Home Medication List Medication Instructions Recorded Confirmed Last Taken Type Atorvastatin Calcium [Lipitor] 40 mg PO QHS 03/28/16 08/28/18 07/22/18 History Fenofibrate [Tricor] 145 mg PO QHS 03/28/16 08/28/18 07/22/18 History Metformin [Glucophage] 500 mg PO BID CC 03/28/16 08/28/18 07/22/18 History Multivitamins/Minerals [Centrum 1 tab PO DAILY 06/20/17 08/28/18 07/22/18 H istory Silver] [place]-3 Fatty Acids [Fish Oil] 1 cap PO BID 06/20/17 08/28/18 07/22/18 History Cholecalciferol (Vitamin D3) 5,000 unit PO DAILY 11/16/17 08/28/18 07/22/18 History [Vitamin D3] Cyanocobalamin/Folic AC/Vit B6 2 mg PO DAILY 11/16/17 08/28/18 07/22/18 History [Folbic Tablet] Fluticasone 50 Mcg Nasal [place] 1 spray TASHIA DAILY PRN 11/16/17 08/28/18 07/22/18 History [Flonase] Glimepiride 4 mg PO BID 11/16/17 08/28/18 07/22/18 History Insulin Detemir [Levemir] 30 units SQ DAILY 11/16/17 08/28/18 07/22/18 History Apixaban [Eliquis] 5 mg PO BID tablet 12/05/17 08/28/18 07/22/18 Rx Pantoprazole [Protonix] 40 mg PO BID tablet 12/05/17 08/28/18 07/22/18 Rx Albuterol Sulfate [Albuterol 1 - 2 inhaler INH DAILY PRN 07/08/2408/28/18 07/22/18 History Sulfate Hfa] Aspirin 81 mg PO DAILY chewtab 07/25/18 08/28/18 Unknown Rx Furosemide [Lasix] 20 mg PO PRN PRN 30 Days #30 tab 08/30/18 08/28/18 Unknown Rx Levothyroxine [Synthroid] 200 microgm PO DAILY@0700 tablet 08/30/18 Unknown Rx - History of Present Illness -Gen Adult Nature of Presenting Problems: 73 y/o female presents to ED with generalized weakness, lethargy, and fatigue onset last week and worsening this morning. [id number] of pt is at bedside and reports she had an episode of urine continence, which is not normal for her. She states pt can normally move around freely and ambulate with assistance, but she could not help at all today. She reports pt sees Dr. Santos and was supposed to get an iron infusion this morning. Hsdhrazt-rt-rja states pt has a GI bleed, but they are unsure where she is bleeding from. She reports pt has had a harder time getting up and she just wants to sleep. Pt denies pain. Pt is lethargic, b ut easily arousable. Location of Pain/Injury: reports: none Pain Radiation: reports: no radiation Quality of Pain: reports: none Severity: reports: moderate Onset/Duration: reports: this morning Timing: reports: still present Context/Activities at Onset: reports: none Modifying Factors: improves with: nothing Associated Symptoms: reports: fatigue, weakness, trouble walking, other (lethargy; urine incontinence) Similar Symptoms Previously?: No Recently seen or treated by another doctor?: No Review of Systems - Adult - REVIEW OF SYSTEMS - ADULT Constitutional: reports: fatique, other (lethargy). denies: chills, fever Eyes: reports: no symptoms reported Ears, Nose, Mouth & Throat: reports: no symptoms reported Cardiovascular: denies: chest pain, palpitations Respiratory: denies: cough, shortness of breath Gastrointestinal: denies: abdominal pain, diarrhea, nausea, vomiting Genitourinary: reports: incontinence. denies: dysuria Musculoskeletal: denies: back pain, joint pain Integumentary: reports: no symptoms reported Neurological: reports: other (weakness). denies: dizziness/vertigo, seizure Psychiatric: reports: no symptoms reported Endocrine: reports: no symptoms reported Hematologic/Lymphatic: reports: no symptoms reported Allergic/Immunologic: reports: no symptoms reported All Other Systems: Reviewed and Negative Past History - Adult - PAST MEDICAL HISTORY-ADULT Review of Records: reports: Old Records Reviewed, Nursing Assessment Review, Medications Reviewed Major Childhood Illnesses: reports: denies history Cardiovascular: reports: cardiac disease, A-Fib, arrhythmia (bradycardia), blood clots (dvt), CHF, HTN, hyperlipidemia, palpitations, pacemaker Respiratory: reports: asthma Gastrointestinal: reports: colitis, GERD, other (hernia, stoma) Obstetrical/Gynecological: reports: denies history Genitourinary: reports: dialysis, kidney disease Musculoskeletal: reports: denies history Neurological: reports: other (diabetic neuropathy) Endocrine/Immune: reports: Diabetes, thyroid disorder (hypo) Other Conditions: reports: MRSA - PRIOR SURGERIES/PROCEDURES Surgical/Procedure History: reports: pacemaker, tonsillectomy, hernia repair, bowel surgery (multiple), other (ileostomy) - PRIOR HOSPITALIZATIONS Prior Hospitalizations: reports: for other non-related - IMMUNIZATION STATUS Childhood Immunizations: See Nurse Assessment Flu Vaccine: See Nurse Assessment - FAMILY HISTORY Family History: reviewed, not pertinent - SOCIAL HISTORY Smoking: non-smoker Substance Use: none/never Alcohol Use Frequency: never Living Situation: family Physical Exam-General - PHYSICAL EXAM-ADULT Initial Vital Signs Reviewed: Yes - CONSTITUTIONAL General Appearance: appears well, no apparent distress, lethargic, other (easily arousable) - EYES Eyes: PERRL/EOMI, pink conjunctivae - HEAD, EARS, NOSE, MOUTH & THROAT HENMT: normocephalic/atraumatic, moist mucous membranes, normal ENT inspection - NECK Neck: non-tender, full range of motion - RESPIRATORY Respiratory: chest non-tender, normal breath sounds, crackles (faint), other (cough with inspiration) - CARDIOVASCULAR Cardiovascular: normal peripheral pulses, regular rate, rhythm - GASTROINTESTINAL (ABDOMEN) Abdominal Exam: normal bowel sounds, non tender, soft, hernia (large ventral hernia that has been growing rapidly over a long period of time per ncoiersk-vu-gml of pt), other (ostomy in place) - MUSCULOSKELETAL Back Exam: normal inspection, no CVA tenderness, no vertebral tenderness Extremity: normal range of motion, non-tender - SKIN Integumentary: normal color, warm/dry, other (ostomy in place) - NEUROLOGIC Neurologic: grossly normal, other (lethargic, but easily arousable) - PSYCHIATRIC Psych/Mental Status: normal mood/affect, normal thought content, normal thought process, oriented x 3, other (lethargic, but easily arousable) Progress - PLAN OF CARE/RESULTS Progress/Plan/Lab Results: Vital Signs - 8 hr 02/15/19 11:07 Temperature 100.4 F H Pulse Rate 67 Respiratory Rate 31 H O2 Sat by Pulse Oximetry 91 L Laboratory Results - last 24 hr 02/15/19 02/15/19 02/15/19 11:07 11:18 11:18 WBC 31.97 H RBC 3.84 L Hgb 8.7 L Hct 27.9 L MCV 72.7 L MCH 22.7 L MCHC 31.2 L RDW Std Deviation 15.3 H Plt Count 315 MPV 10.8 H Immature Gran % (Auto) 0.3 Neut % (Auto) 92.8 H Lymph % (Auto) 2.8 L [place] % (Auto) 4.0 Eos % (Auto) 0.0 Baso % (Auto) 0.1 Immature Gran # (Auto) 0.10 H Neut # (Auto) 29.67 H Lymph # (Auto) 0.89 L [place] # (Auto) 1.29 H Eos # (Auto) 0.00 Baso # (Auto) 0.02 Segmented Neutrophils 84 H Band Neutrophils 12 H Lymphocytes 4 L Hypochromia 1+ Microcytosis 2+ PT INR PTT (Actin FS) Sodium 139 Potassium 4.9 Chloride 97 L Carbon Dioxide 27 Anion Gap 15 BUN 29 H Creatinine 1.5 H Estimated GFR/1.73 m2 34 BUN/Creatinine Ratio 19 Glucose 459 H* POC Glucose 461 H Calculated Osmolality 303 Calcium 9.5 Total Bilirubin 0.59 AST 20 ALT 13 Alkaline Phosphatase 57 Creatine Kinase 69 Troponin T Total Protein 6.4 Albumin 3.6 Globulin 2.8 Albumin/Globulin Ratio 1.3 Plasma Lactate 02/15/19 02/15/19 02/15/19 11:18 11:18 11:18 WBC RBC Hgb Hct MCV MCH MCHC RDW Std Deviation Plt Count MPV Immature Gran % (Auto) Neut % (Auto) Lymph % (Auto) [place] % (Auto) Eos % (Auto) Baso % (Auto) Immature Gran # (Auto) Neut # (Auto) Lymph # (Auto) [place] # (Auto) Eos # (Auto) Baso # (Auto) Segmented Neutrophils Band Neutrophils Lymphocytes Hypochromia Microcytosis PT 17.1 H INR 1.37 PTT (Actin FS) 31.4 Sodium Potassium Chloride Carbon Dioxide Anion Gap BUN Creatinine Estimated GFR/1.73 m2 BUN/Creatinine Ratio Glucose POC Glucose Calculated Osmolality Calcium Total Bilirubin AST ALT Alkaline Phosphatase Creatine Kinase Troponin T 0.043 Total Protein Albumin Globulin Albumin/Globulin Ratio Plasma Lactate 2.5 H Orders Category Date Time Status Cardiac Monitoring DIRECTED Care 02/15/19 11:09 Active IV Insertion ORDERED Care 02/15/19 11:09 Completed Notify MD of + Sepsis Screen NOW Care 02/15/19 11:09 Active Notify Physician As Ordered Care 02/15/19 11:09 Active CHEST-1 VIEW [RAD] Stat Exams 02/15/19 11:09 Completed BLOOD CULTURE [BLDCUL] Stat Lab 02/15/19 11:22 Received CBC WITH DIFF [HEME] Stat Lab 02/15/19 11:18 Completed CK PROFILE [SP CHEM] Stat Lab 02/15/19 11:18 Completed COMPREHENSIVE METABOLIC PANEL [CHEM] Stat Lab 02/15/19 11:18 Completed LACTATE, PLASMA [CHEM] Lab 02/15/19 14:15 Uncollected LACTATE, PLASMA [CHEM] Lab 02/15/19 17:15 Uncollected LACTATE, PLASMA [CHEM] Q3H Lab 02/15/19 11:18 Completed PROTIME WITH INR [COAG] Stat Lab 02/15/19 11:18 Completed PTT [COAG] Stat Lab 02/15/19 11:18 Completed TROPONIN T Stat Lab 02/15/19 11:18 Completed TYPE & SCREEN [BBK] Stat Lab 02/15/19 11:18 Results URINALYSIS W/POSS RFLX CULT [URINALYSIS] Stat Lab 02/15/19 11:09 Uncollected CefTRIAXONE [Rocephin] 1 gm Med 02/15/19 12:07 Active 0.9% Sodium Chloride Inj [Ns] 50 ml IV NOW Insulin Human Regular [Humulin R] Med 02/15/19 12:16 Discontinued 8 unit IV NOW ONE Vancomycin 1 gm/Ns Med 02/15/19 12:07 Active 1 gm in 250 ml IV NOW Oxygen Device Stat Oth 02/15/19 11:09 Active Result Diagrams: 02/15/19 11:18 02/15/19 11:18 - XRAY 1 XRAY Study: Chest Impression: See EMR Report ([facility] - [address] , [address], [place] [address] [facility] - [address] , [place] [address] Department of Imaging Patient: BELIA MOORE Date: 02/15/19MR#: [id number] : 5ADM Status: REG ERAcct#: [id number] A ge/Sex: 73/FRoom/Bed: Loc: ED Ordering Physician: Deandre Guzmán MD Family Physician: Jessica Duke MD Reason for Procedure: sob Signed EXAM: CHEST-1 VIEW HISTORY: sob TECHNIQUE: Chest single view COMPARISON: 11/14/2018 FINDINGS: The lungs are well expanded. The heart is not enlarged. Left-sided pacemaker. There is central vascular prominence. There are no infiltrates. No effusion identified. IMPRESSION: Central vascular prominence. Electronically signed by Mustapha Reynoso 02/15/2019 12:00 PM 02/15/19 1200 Interpreting Physician: Mustapha Reynoso MD Dictated Date/Time: 02/15/19 1159 cc: Deandre Guzmán MD; Jessica Duke MD) - CONSULTS/PCP/HOSPITALIST Notification #1 *Consult/PCP/Hospitalist*: CLINT Bang for Dr. Begum Time Discussed: 14:29 Reason/Comments: Sepsis Consult Disposition: Admit Departure - Departure Date of Disposition Decision: 02/15/19 Time of Disposition Decision: 14:30 DIAGNOSIS: Sepsis Qualifiers: Sepsis type: sepsis due to unspecified organism Sepsis acute organ dysfunction status: unspecified Qualified Code(s): A41.9 - Sepsis, unspecified organism Disposition: ADMITTED INPATIENT 09 Certified Medical Emergency: Emergent Condition: Fair - Critical Care Note This patient required my direct & personal management of CC.: Yes Total Time (mins): 45 Critical Care Statement: This patient required my direct personal management to treat or rule out processes, the absence of which, could potentiallly result in sudden, clinically significant life or limb threatening deterioration. Attestation - Physician/ VALE Attestation Patient care was provided by Advanced Practice Provider:: No The physician spent face to face time with patient:: Yes Advanced Practice Provider documentation review:: Supervising physician onsite and consulted in the evaluation and care of this patient. The physician did have a face to face encounter with the patient. This chart was documented by the indicated scribe, (Yolanda Muniz Scribe) and accurately reflects the services I performed and decisions made by me, Bailee Padilla MD, as attested by the provider's signature.
[2019-02-15] MEDS ORDERED: HUMULIN R SUBQ SCH (16:00)
[2019-02-15] MEDS ORDERED: VENOFER 200 MG in NS 150 ML IV ONE (16:23)
[2019-02-15] MEDS ORDERED: LASIX IV ONE (16:23)
[2019-02-15] MEDS: NS 1,000 ML IV SCH (17:03)
[2019-02-15 17:08] LABS: INR 1.42; PROTIME 17.6 Seconds (11.0-16.0)
[2019-02-15 17:09] LABS: PTT 34.9 Seconds (22.3-41.8)
[2019-02-15 17:16] LABS: ALBUMIN 3.2 g/dL (3.5-5.0); CALCIUM 8.8 mg/dL (8.8-10.2); CREATININE 1.7 mg/dL (0.5-0.9); MAGNESIUM 1.5 mg/dL (1.5-2.7); POTASSIUM 4.5 mmol/L (3.5-5.1); TOTAL BILIRUBIN 0.46 mg/dL (0.20-1.00); TOTAL PROTEIN 6.4 g/dL (6.3-8.3)
[2019-02-15 17:21] LABS: BASO# 0.02 X1000 (0.0-0.2); BASO% 0.1 % (0.0-0.8); HEMATOCRIT 26.3 % (37.0-47.0); HEMOGLOBIN 8.1 g/dL (12.0-16.0); IMM GRAN# 0.09 X1000 (0.0-0.04); IMM GRAN% 0.3 % (0.0-0.5); LYMPH# 1.35 X1000 (1.2-3.4); LYMPH% 4.9 % (20.5-51.1); MCH 22.3 PG (27-31); MCHC 30.8 g/dL (33-37); MCV 72.5 FL (81-99); MONO# 1.36 X1000 (0.11-0.59); MONO% 4.9 % (1.7-9.3); MPV 10.5 FL (7.4-10.4); NEUT# 24.67 X1000 (1.4-6.5); NEUT% 89.8 % (42.2-75.2); PLT 308 X1000 (130-400); RBC 3.63 XMIL (4.2-5.4); RDW 15.3 % (11.5-14.5); WBC 27.49 X1000 (4.8-10.8)
[2019-02-15] MEDS ORDERED: FLONASE NAS PRN (17:39)
[2019-02-15 17:40] LABS: LYMPHS 4 % (21-51); MONO 6 % (1-9); SEGS 90 % (42-75)
[2019-02-15 17:41] LABS: MICROCYTOSIS 1+
[2019-02-15] MEDS: ELIQUIS PO SCH (21:37)
[2019-02-15] MEDS: LIPITOR PO SCH (21:37)
[2019-02-15] MEDS: HUMULIN R SUBQ SCH (21:37)
[2019-02-15] MEDS: PATIENT'S OWN MED PO SCH (21:59)
--- NOTE | 2019-02-16 03:41 | HISTORY AND PHYSICAL ---
HISTORY OF PRESENT ILLNESS: She is a patient of Dr. Abdi. This is a 73-year-old female, well known to our service. 1. History of paroxysmal atrial fibrillation. Had a pacemaker placed about 2 months ago. It sounds like she had bradycardia and sick sinus syndrome. 2. Coronary artery disease. 3. Diastolic heart failure. 4. Chronic kidney disease. 5. She has a right abdominal hernia which is very large, and she was suffering from small bowel obstruction which required ileostomy placement. The report is that her daughter came to pick her up. She was supposed to go for an iron infusion, so she has a history of iron deficiency anemia, and she had really struggled to get to the door, was very weak, and then did not feel like she could make it, and they had trouble getting her back and called the paramedics, and she came to the emergency room. It is mainly weakness. She does not really describe chest pain or palpitations or any focal neurologic changes. No loss of consciousness. MORE DETAILED PAST MEDICAL HISTORY: 1. Coronary artery disease. 2. Diastolic heart failure. Ejection fraction 65% to 70% on last recording. 3. Diabetes mellitus, type 2. 4. Chronic kidney disease, between stage 3 and 4. 5. Hypertension. 6. Hypothyroidism. 7. Morbid obesity. 8. Massive abdominal hernia with an ileostomy. 9. Ileostomy secondary to history of small bowel obstruction. 10. Gastroesophageal reflux disease. 11. Paroxysmal atrial fibrillation. 12. Iron deficiency anemia for which she gets infusions. I think that is per Dr. Tri Santos. RATE CLERK: Dr. Crawford. SURGICAL HISTORY: 1. Status post tonsillectomy. 2. Abdominal hernia repair. 3. Small bowel obstruction. SOCIAL HISTORY: Lives alone. Daughter is very attentive, checks on her regularly. She has been to rehabilitations a couple times; the last one was in [place]. Denies any history of tobacco or alcohol. ALLERGIES: Allergic to oral and IV dye. HOME MEDICATIONS: Will review later. REVIEW OF SYSTEMS: Constitutional: The did not report any weight gain or loss that they are aware of in the last several months. No definitive fever or chills, although she questions whether she had some subjective fever at home. HEENT: No reported hearing or visual acuity loss. No recent fall or head trauma. Neck: No neck pain. No adenopathy. Respiratory: No real increased work of breathing. No paroxysmal nocturnal dyspnea or orthopnea reported. Cardiovascular: No chest pain or palpitations. Had a pacemaker placed 2 months ago. Gastrointestinal: No complaints of constipation and ileostomy. No complaints there. No pain in the abdomen. Genitourinary: They do not report any change in urine output or dysuria or gross hematuria. Neurologic: No focal complaints. Endocrinologic/Hematologic: No significant history, other than diabetes. PHYSICAL EXAMINATION: GENERAL: Awake and alert, oriented x3. Pleasant. No sign of acute distress. HEENT: Pupils are equal and round. NECK: No distended neck veins appreciated. CVP estimated less than 6 cm from angle of Carlos. LYMPH: No cervical or supraclavicular adenopathy. No femoral adenopathy appreciated. LUNGS: Clear anterior and lateral and posterior. CARDIOVASCULAR: Regular rhythm and rate. No murmur appreciated. PMI nondisplaced. Did not appreciate any murmurs. ABDOMEN: A large ventral hernia, probably 2 feet from its origin at the abdomen. There is no erythema. There is no sign of ulcers. She does have an ileostomy bag on there. EXTREMITIES: There is 1+ edema, ankles to mid logan. Her left logan has a little bit of erythema. No real tenderness. I did not palpate any cords. No angry-looking ulcers. She has some superficial abrasions on her feet. SKIN: Otherwise without rash. I did not feel see any rashes on her oral or nasal mucosa either. DIAGNOSTIC STUDIES: Sodium 139, potassium 4.9, chloride 97, BUN 29, creatinine 1.7, blood sugar 459. Troponin 0.043. ProBNP 3944. Albumin 36. CBC: White blood cell count 31,970, hematocrit is 27, hemoglobin 8.7, platelet count is 315,000, her MCV is 72. Pro-time 17.1, INR 1.37, PTT was 31. Urinalysis was unremarkable. She did have a little bit of protein. Greater than 1000 blood sugar . Her blood gas: PH is 7.48, pCO2 of 40, PO2 of 63, O2 saturation was 94%. Chest x-ray: There is some central vascular prominence appreciated. ASSESSMENT AND PLAN: 1. General weakness. I think is probably multifactorial, probably deconditioning, and she struggles to walk around with a walker. At any rate, has a large ventral hernia. She does have iron deficiency and microcytic anemia. We will plan on giving her some iron sucrose tomorrow, probably give her 200 mg, and we will give her a dose of Lasix at the present time. 2. Diastolic dysfunction in the face of chronic kidney disease and has some mild pulmonary venous hypertension. Her creatinine is 1.5, so we will give her a 40 mg IV push of Lasix tonight for pulmonary venous hypertension. 3. Diabetes mellitus, type 2. Sugars were high. She is not acidotic. We will put her on the moderate insulin Humulin regular sliding scale and see if can we get her sugars down a little bit. We will check a hemoglobin A1c tomorrow. We will also check a T4, TSH, B12, and folate, and I think we will check a set of troponin and CK in the morning as well. 4. History of hypercholesterolemia. 5. History of atrial fibrillation and sick sinus syndrome, recent pacemaker placement with underlying diastolic dysfunction. Appears to be hemodynamically stable. Pacemaker functioning appropriately. She is on Eliquis 5 mg b.i.d., takes an aspirin 81 mg a day. We will continue that. We will continue her Tricor 145 mg at bedtime; I assume this for hypercholesterolemia and hypertriglyceridemia. 6. History of hypothyroidism. Continue her Synthroid. We will check a T4 and TSH. In regards to her diabetes, she is on metformin, and we will continue that 500 mg b.i.d. She is on fish oil; we will give her 1 capsule b.i.d. She takes Protonix at high dose 40 mg b.i.d., and we will continue that as well. We will go ahead and check her serum iron, ferritin, total iron binding capacity, as well as her B12 and folate. cc: Jose Cruz Begum MD MTDD
[2019-02-16] MEDS: PROTONIX PO SCH (06:29)
[2019-02-16] MEDS: SYNTHROID PO SCH (06:29)
[2019-02-16] MEDS: HUMULIN R SUBQ SCH ×4 (06:29→21:25)
[2019-02-16] MEDS: NS 1,000 ML IV SCH ×2 (06:29→17:13)
[2019-02-16 07:37] LABS: IRON SATURATION 19 %; TIBC 342 ug/dL; TOTAL IRON 66 ug/dL (49-151); UNBOUND IRON 276 ug/dL (112-346)
[2019-02-16 07:58] LABS: FERRITIN 126 ng/mL (13-150); FREE T4 1.07 ng/dL (0.93-1.70)
[2019-02-16] MEDS: LOFIBRA PO SCH (08:03)
[2019-02-16] MEDS: ELIQUIS PO SCH ×2 (08:03→21:27)
[2019-02-16] MEDS: AMARYL PO SCH ×2 (08:03→17:12)
[2019-02-16] MEDS: VITAMIN D PO SCH (08:03)
[2019-02-16] MEDS: ROCEPHIN 1 GM in NS 50 ML IV SCH (08:04)
[2019-02-16] MEDS: CENTRUM SILVER PO SCH (08:04)
[2019-02-16] MEDS: GLUCOPHAGE PO SCH ×2 (08:18→17:13)
[2019-02-16] MEDS: ASPIRIN PO SCH (09:00)
--- NOTE | 2019-02-16 10:52 | Diag Imaging Result Doc PS360 ---
CHEST-PORTABLE - 02/16/2019 INDICATION: SOB COMPARISON: 02/15/2019 FINDINGS: Stable left-sided pacemaker. Stable cardiomegaly and pulmonary vascular congestion. Stable hazy bibasilar interstitial infiltrates compatible with pulmonary edema. No large pleural effusions. Mild right hemidiaphragm elevation. IMPRESSION: Cardiomegaly, pulmonary vascular congestion, mild pulmonary edema. No change from prior. Electronically signed by Hector Palma 02/16/2019 10:50 AM
[2019-02-16] MEDS: PATIENT'S OWN MED PO SCH ×3 (10:54→21:27)
[2019-02-16] MEDS: LEVEMIR SUBQ SCH (10:57)
--- NOTE | 2019-02-16 16:20 | HEMO/ONC CONSULTATION ---
DATE: 02/16/2019 REASON FOR CONSULTATION: Hospitalist Service requesting consultation for iron deficiency anemia. HISTORY OF PRESENT ILLNESS: Ms. Zimmerman is a 73-year-old female, who is known to us as we follow her for iron deficiency anemia, as well as recurrent DVTs. Patient was actually in our office last week. She was doing relatively okay at that point. Again we do follow her for iron deficiency anemia and have to give her parental iron. 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 Of note, when the patient came in to our office, she had a decline in her hemoglobin by 2 grams. Her iron had also significantly declined indicating that she had some sort of bleeding. The patient denied any marilin bleeding at that appointment. She was relatively asymptomatic at that time. The plan was actually to proceed with differential iron starting yesterday in our office. Per the notes, as the patient is in the room by herself and is a poor historian, she started to feel weak and was unable to ambulate, and this resulted in the ambulance being called with the patient now being admitted to the hospital. There is question she has possible sepsis. She definitely has weakness which is likely multifactorial. PAST MEDICAL HISTORY: 1. Coronary artery disease. 2. Diastolic heart failure. 3. Diabetes mellitus. 4. Chronic kidney disease. 5. Hypertension. 6. Hypothyroidism. 7. Massive abdominal hernia with ileostomy in place. 8. History of small-bowel obstruction relieved with ileostomy. 9. GERD. 10. Paroxysmal atrial fibrillation and sick sinus syndrome, status post pacemaker placement. 11. Iron deficiency anemia. PAST SURGICAL HISTORY: 1. Status post tonsillectomy. 2. Abdominal hernia repair. 3. Small-bowel obstruction with ileostomy as per above. SOCIAL HISTORY: Patient lives alone, but she has a very attentive an involved daughter and other family members. The patient does have several hospitalizations over the past couple years. She denies any history of tobacco or alcohol use. REVIEW OF SYSTEMS: Twelve point review of systems completed and negative, except for what is expressed in the HPI. PHYSICAL EXAMINATION: Vital Signs: Temperature 98.1 degrees, heart rate 79, respirations 18, blood pressure 152/71, O2 saturation 99% on 3 L nasal cannula. General: This is a female sitting up in her hospital bed. She is in the room by herself at the beginning of the interview. She is in no acute distress. Head: Head normocephalic, atraumatic. Eyes: Pupils equal, round, reactive. Ears, nose, throat, neck, and mouth: Oral mucosa appears to be normal. Cardiovascular: S1, S2 heard. Regular rate and rhythm. Respiratory: Chest is essentially clear to auscultation. Gastrointestinal: Abdomen is obese, but nondistended. Extremities: She does have edema that looks like it is overall stable in her bilateral lower extremities. Neurologic: Patient is alert, with no obvious focal motor deficits noted at this time. LABS AND STUDIES: White blood cells are 27.49, hemoglobin is 8.1, platelet count 308. Sodium is 133, potassium 4.5, chloride 97, CO2 25. BUN 31, creatinine 1.7 and glucose is 308 with an iron saturation percent 19 and an iron of 66. Ferritin is 276. ASSESSMENT/PLAN: 1. Iron deficiency anemia. We agree with giving the patient parental iron. That was our plan actually to do on 02/15 prior to the patient being admitted to the hospital. Yet, her hemoglobin has dropped a couple grams in the last 3 months or so. This indicates to us that she is having some sort of bleeding that is not marilin. Because of this, we are going to go ahead and lower her Eliquis to 2.5 mg twice daily. The hope is that she will still be anticoagulated, but will not have any issues with significant bleeding. 2. 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 Again, we will plan to continue Eliquis, but we are going to lower the dose to 2.5, due to recent decline in her iron and hemoglobin indicating some sort of bleeding. This has been discussed with the patient and her family. New orders for Eliquis 2.5 placed in the system. 3. Suspected sepsis. The patient has leukocytosis, as well as weakness. She is currently on intravenous antibiotics per the direction of the primary team. Cultures have been ordered, but are currently pending. She certainly could have has some deconditioning and will likely need at least physical therapy while in the hospital. I want to thank you for consulting us on Ms. Zimmerman. We will continue to follow along and adjust our treatment plan per her hospital course. Dictated by JUSTYN Arzola for Tri Santos MD cc: Tri Santos MD I have seen and examined the patient and the above note reflects my history, physical, assessment and plan. Tri Santos MD [facility]
--- NOTE | 2019-02-16 16:44 | PROGRESS NOTE ---
DATE: 02/16/2019 SUBJECTIVE: Ms Zimmerman reports that she is feeling better a little stronger. She was able to eat a little bit. She was able to make it to the bedside commode. OBJECTIVE: Remains afebrile, temperature 97.8 degrees, pulse 79, respirations 18, blood pressure 163/78.HEENT: Pupils are equal and round. Lungs: Clear in all lung miller. Cardiovascular: Regular rhythm and rate without murmur or S3. Abdomen: Soft. Skin: Warm and dry. Urine output: 1000 mL. DIAGNOSTIC STUDIES: Blood sugar: 232 and 281 were the last 2. ASSESSMENT AND PLAN: 1. Iron deficiency anemia. Giving the patient some parental iron. They are planning on doing it actually on 02/15/2019, then she is admitted to the hospital. Hemoglobin dropped a couple grams in the last 3 months or so, and she indicates that she may be having some bleeding that is and they are going to lower her Eliquis to 2.5 mg twice a day. This way she will still be anticoagulated, but might hopefully not have as many issues with significant bleeding. 2. Recurrent deep venous thrombosis. Continue anticoagulation but lower the dose. 3. Suspected sepsis. The patient had leukocytosis and weakness and febrile. On antibiotics and we will continue that. 4. General weakness, deconditioning. Continue her physical therapy. We explained she is going to have to be stronger and be able to transfer and ambulate before she is able to go home so we are going to continue to work on that with physical therapy. 5. She also has history of atrial fibrillation and sick sinus syndrome, had a pacemaker placement not too long ago, a couple months ago. Aware. cc: Jose Cruz Begum MD MTDD
[2019-02-16] MEDS: LIPITOR PO SCH (21:25)
[2019-02-17] MEDS: VANCOMYCIN 1,800 MG in NS 500 ML IV SCH (03:12)
[2019-02-17] MEDS: SYNTHROID PO SCH (06:33)
[2019-02-17] MEDS: HUMULIN R SUBQ SCH ×4 (06:33→21:28)
[2019-02-17] MEDS: PROTONIX PO SCH (06:36)
[2019-02-17] MEDS: AMARYL PO SCH ×2 (08:30→17:30)
[2019-02-17] MEDS: ROCEPHIN 1 GM in NS 50 ML IV SCH (08:30)
[2019-02-17] MEDS: ELIQUIS PO SCH ×2 (08:30→21:16)
[2019-02-17] MEDS: VITAMIN D PO SCH (08:30)
[2019-02-17] MEDS: GLUCOPHAGE PO SCH ×2 (08:30→17:31)
[2019-02-17] MEDS: ASPIRIN PO SCH (08:30)
[2019-02-17] MEDS: CENTRUM SILVER PO SCH (08:30)
[2019-02-17] MEDS: LOFIBRA PO SCH (08:30)
[2019-02-17] MEDS: LEVEMIR SUBQ SCH (08:31)
[2019-02-17] MEDS: PATIENT'S OWN MED PO SCH ×2 (08:41→21:16)
[2019-02-17] MEDS: NS 1,000 ML IV SCH ×2 (10:12→23:02)
--- NOTE | 2019-02-17 13:26 | PROGRESS NOTE ---
DATE: 02/17/2019 SUBJECTIVE: Ms. Zimmerman is feeling better and a little bit stronger. She is complaining of a little bit of a cough and she can only take a couple steps, so still pretty weak. PHYSICAL EXAMINATION: General: Today, well-developed, well-nourished white female, sitting on the bedside. Vital Signs: Stable. Lungs: Clear in all lung miller. Cardiovascular: Regular rhythm and rate without murmur or S3. Abdomen: Soft. She has large ventral hernia. No sign of erythema or tenderness. ASSESSMENT AND PLAN: 1. Iron deficiency anemia. Her hematocrit is 26, hemoglobin 8.1, platelet count is 308,000, MCV is 72. Her hemoglobin has dropped a couple grams in the last 3 months, indicates she may be having some slow blood loss. Suspect gastrointestinal blood loss. We have cut down her Eliquis 2.5 mg b.i.d. 2. Recurrent deep venous thrombosis. She is on lifelong anticoagulation. I have cut down the Eliquis. 3. Questionable infection when she came so continue present antibiotic. We will repeat a chest x- ray in the morning. Yesterday's chest x-ray, cardiomegaly, pulmonary vascular congestion, mild pulmonary edema, no change from prior, and her white count has been elevated at 31,000, then 27,000, so continue present antibiotics. cc: Jose Cruz Begum MD
[2019-02-17] MEDS: LASIX IV SCH (14:34)
[2019-02-17] MEDS: TESSALON PO PRN ×2 (14:34→23:02)
[2019-02-17] MEDS ORDERED: AFRIN NASAL SPRAY NAS ONE (15:35)
[2019-02-17] MEDS: LIPITOR PO SCH (21:16)
[2019-02-18] MEDS: LASIX IV SCH ×2 (01:39→14:17)
[2019-02-18] MEDS: SYNTHROID PO SCH (06:47)
[2019-02-18] MEDS: HUMULIN R SUBQ SCH ×4 (06:47→22:56)
[2019-02-18] MEDS: PROTONIX PO SCH (06:47)
[2019-02-18 07:30] LABS: BASO# 0.03 X1000 (0.0-0.2); BASO% 0.3 % (0.0-0.8); EOS# 0.53 X1000 (0.0-0.7); EOS% 6.1 % (0.0-10.0); HEMATOCRIT 29.7 % (37.0-47.0); HEMOGLOBIN 8.6 g/dL (12.0-16.0); IMM GRAN# 0.05 X1000 (0.0-0.04); IMM GRAN% 0.6 % (0.0-0.5); LYMPH% 17.3 % (20.5-51.1); MCH 21.9 PG (27-31); MCV 75.8 FL (81-99); MONO# 0.65 X1000 (0.11-0.59); MONO% 7.5 % (1.7-9.3); MPV 10.1 FL (7.4-10.4); NEUT# 5.91 X1000 (1.4-6.5); NEUT% 68.2 % (42.2-75.2); PLT 319 X1000 (130-400); RBC 3.92 XMIL (4.2-5.4); RDW 15.1 % (11.5-14.5); WBC 8.67 X1000 (4.8-10.8)
[2019-02-18 07:57] LABS: POTASSIUM 3.5 mmol/L (3.5-5.1)
[2019-02-18 07:58] LABS: CALCIUM 9.2 mg/dL (8.8-10.2); MAGNESIUM 1.4 mg/dL (1.5-2.7)
[2019-02-18] MEDS: AMARYL PO SCH ×2 (08:32→18:44)
[2019-02-18] MEDS: VITAMIN D PO SCH (08:33)
[2019-02-18] MEDS: LOFIBRA PO SCH (08:33)
[2019-02-18] MEDS: ROCEPHIN 1 GM in NS 50 ML IV SCH (08:33)
[2019-02-18] MEDS: ELIQUIS PO SCH ×2 (08:33→22:05)
[2019-02-18] MEDS: ASPIRIN PO SCH (08:33)
[2019-02-18] MEDS: CENTRUM SILVER PO SCH (08:33)
[2019-02-18] MEDS: GLUCOPHAGE PO SCH ×2 (08:33→18:45)
[2019-02-18] MEDS: NS 1,000 ML IV SCH ×2 (08:39→23:37)
[2019-02-18] MEDS: LEVEMIR SUBQ SCH (08:42)
[2019-02-18] MEDS: PATIENT'S OWN MED PO SCH (08:44)
[2019-02-18] MEDS ORDERED: VENOFER 200 MG in NS 100 ML IV ONE (09:54)
--- NOTE | 2019-02-18 10:19 | PROGRESS NOTE ---
DATE: 02/18/2019 SUBJECTIVE: Ms Zimmerman feels like she is doing better. I had a discussion with her son. She really wants to go home. She is not able to walk and ambulate 30 or 40 feet with a walker and transfer weight. She lives alone. She will be able to go home. She will need to go to rehabilitation so he wanted to discuss this with the social workers. He also wanted to discuss the possibility of having to go to a group home. We will continue physical therapy. Continue present measures see where we are Friday. OBJECTIVE: Vital Signs: Temperature 97.5 degrees, pulse 78, respirations 16, blood pressure 175/75. Eyes: Pupils are equal and round. Lungs: Clear in all lung miller. Cardiovascular: Regular rhythm and rate without murmur or S3. Urine output: 6400 mL. DIAGNOSTIC STUDIES: Blood sugar 191, 206, 236. ASSESSMENT AND PLAN: 1. Iron deficiency anemia. Received some iron. Her hematocrit and hemoglobin are stable. Hematocrit is 29, hemoglobin is 8.6 with an MCV of 75. 2. Recurrent deep venous thrombosis. Continue her anticoagulation with Eliquis. 3. Questionable infection when she came in with antibiotic. Repeat chest x-ray. 4. Questionable pneumonia. We will repeat another chest x-ray in the morning. 5. History of pacemaker. I believe this was for sick sinus syndrome. 6. Review of her orders: I do not see any change. I may give another iron infusion. Blood sugars appear to be remaining stable. We will check another chest x-ray this morning this. cc: Jose Cruz Begum MD
--- NOTE | 2019-02-18 10:33 | Diag Imaging Result Doc PS360 ---
EXAM: CHEST-PORTABLE HISTORY: pneumonia TECHNIQUE: Portable chest COMPARISON: 02/16/2019 FINDINGS: The lungs are well expanded. Mild cardiac prominence. There is vascular distention. Left-sided pacemaker. Small left pleural effusion. Questionable underlying infiltrates. IMPRESSION: No interval improvement. Several images one view very much preliminary view of less than Electronically signed by Mustapha Reynoso 02/18/2019 10:31 AM
[2019-02-18] MEDS: VANCOMYCIN 1,800 MG in NS 500 ML IV SCH (14:14)
[2019-02-18] MEDS: FISH OIL CONCENTRATE PO SCH (14:17)
[2019-02-18] MEDS: LIPITOR PO SCH (22:05)
[2019-02-18] MEDS: TESSALON PO PRN (23:30)
[2019-02-19] MEDS: LASIX IV SCH ×2 (01:26→12:42)
[2019-02-19] MEDS: SYNTHROID PO SCH (06:33)
[2019-02-19] MEDS: PROTONIX PO SCH (06:33)
[2019-02-19] MEDS: HUMULIN R SUBQ SCH ×4 (07:13→22:06)
[2019-02-19] MEDS: LOFIBRA PO SCH (08:06)
[2019-02-19] MEDS: FISH OIL CONCENTRATE PO SCH (08:06)
[2019-02-19] MEDS: VITAMIN D PO SCH (08:06)
[2019-02-19] MEDS: AMARYL PO SCH ×2 (08:06→16:11)
[2019-02-19] MEDS: GLUCOPHAGE PO SCH ×2 (08:06→16:11)
[2019-02-19] MEDS: CENTRUM SILVER PO SCH (08:06)
[2019-02-19] MEDS: ASPIRIN PO SCH (08:06)
[2019-02-19] MEDS: ELIQUIS PO SCH ×2 (08:07→22:07)
[2019-02-19] MEDS: ROCEPHIN 1 GM in NS 50 ML IV SCH (08:07)
[2019-02-19] MEDS: LEVEMIR SUBQ SCH (08:09)
[2019-02-19] MEDS: NS 1,000 ML IV SCH ×3 (10:56→22:08)
[2019-02-19] MEDS: TESSALON PO PRN (10:56)
--- NOTE | 2019-02-19 14:08 | HEMO/ONC PROGRESS NOTE ---
DATE: 02/19/2019 SUBJECTIVE: Ms. Zimmerman is sitting up in her hospital bed. She is in no acute distress. She is in good spirits. OBJECTIVE: Vital Signs: Temperature 97.9 degrees, heart rate 85, respirations 18, blood pressure 162/84, O2 saturation 100% on 2 L nasal cannula. Cardiovascular: Regular rate. Respiratory: Normal respiratory effort. Gastrointestinal: Abdomen is nondistended. LABORATORY DATA: Hemoglobin 8.6, white blood cell count is 8.6. ASSESSMENT AND PLAN: 1. Recurrent deep venous thromboses. Patient will continue on Eliquis at 2.5 mg b.i.d. She does report to me that she had some nose bleeding the other day but it seems like it is likely related to having O2 in place. She had no gushing nosebleeds. 2. Anemia with what we believe to be recent blood loss. Hemoglobin stabilized. She has received an iron infusion and there may be plans to do another one which seems appropriate. She will continue Eliquis 2.5 mg as per above. 3. Possible pneumonia/sepsis. Her white blood cell count is now normal. She has been receiving IV antibiotics per the primary team. Her blood cultures have been negative. 4. Disposition. She possibly could be going to rehab for a week or 2. I will see the patient at her regularly scheduled appointment as an outpatient once she is released. Dictated by JUSTYN Arzola for Tri Santos MD cc: Tri Santos MD I have seen and examined the patient and the above note reflects my history, exam, assessment and plan. Tri BOSTON
--- NOTE | 2019-02-19 15:16 | PROGRESS NOTE ---
DATE: 02/19/2019 HISTORY: Ms. Zimmerman says she does feel stronger, doing a little better. She is ambulating some to the bathroom just short steps. OBJECTIVE: Vital Signs: Remains afebrile, temperature 98.1 degrees, pulse 80, respirations 18, blood pressure 157/81. HEENT: Pupils are equal and round. Lungs: Clear in all lung miller. Cardiovascular: Regular rhythm and rate without murmur or S3. Abdomen: Soft. Skin: Warm and dry. URINE OUTPUT: 2800 mL. ASSESSMENT AND PLAN: 1. Recurrent deep venous thrombosis. She is on Eliquis. We cut it down to 2.5 mg b.i.d. She has not had any trouble with bleeding. 2. Anemia which is improved, and history of iron deficiency. 3. Possible pneumonia and sepsis when she presented. This is improved. 4. General deconditioning and weakness. REVIEW OF ORDERS: She is on Lipitor 40 mg at bedtime, Eliquis 2.5 mg b.i.d., aspirin 81 mg a day, vitamin D3 5000 units a day, fenofibrate 160 mg q.a.m., Lasix 40 mg IV q.12, glimepiride 4 mg b.i.d., Levemir 40 units subcutaneous daily, Synthroid 200 mcg p.o. daily, metformin 500 mg b.i.d., multivitamin 1 a day. Kennard-3 fatty acids 1000 mg daily, Protonix 40 mg a day. She is getting ceftriaxone 1 g every 24 hours, vancomycin 1800 mg IV q.6 hours. Cultures: 1 of 2 blood cultures grew out coagulase-negative Staphylococcus which I suspect is contaminant. Clinically improving. I think the plan is to continue physical therapy and see if maybe she would be eligible to go to the rehab unit. cc: Jose Cruz Begum MD
[2019-02-19] MEDS: LIPITOR PO SCH (22:07)
[2019-02-20] MEDS: VANCOMYCIN 1,800 MG in NS 250 ML IV SCH (01:58)
[2019-02-20] MEDS ORDERED: VANCOMYCIN 1,800 MG in NS 500 ML IV SCH (02:00)
[2019-02-20] MEDS: SYNTHROID PO SCH (06:31)
[2019-02-20] MEDS: LASIX IV SCH ×2 (06:31→17:36)
[2019-02-20] MEDS: PROTONIX PO SCH (06:31)
[2019-02-20] MEDS: HUMULIN R SUBQ SCH ×4 (06:31→22:07)
[2019-02-20] MEDS: NS 1,000 ML IV SCH ×3 (06:32→17:34)
[2019-02-20] MEDS: ROCEPHIN 1 GM in NS 50 ML IV SCH (10:55)
[2019-02-20] MEDS: AMARYL PO SCH ×2 (10:58→17:29)
[2019-02-20] MEDS: CENTRUM SILVER PO SCH (10:58)
[2019-02-20] MEDS: GLUCOPHAGE PO SCH ×2 (10:58→17:29)
[2019-02-20] MEDS: FISH OIL CONCENTRATE PO SCH (10:58)
[2019-02-20] MEDS: ELIQUIS PO SCH ×2 (10:58→22:07)
[2019-02-20] MEDS: ASPIRIN PO SCH (10:58)
[2019-02-20] MEDS: LOFIBRA PO SCH (10:58)
[2019-02-20] MEDS: VITAMIN D PO SCH (10:58)
[2019-02-20] MEDS: LEVEMIR SUBQ SCH (10:59)
--- NOTE | 2019-02-20 13:18 | PROGRESS NOTE ---
DATE: 02/20/2019 Ms. Zimmerman feels like she is still stronger. She would like to have her walker so she can walk around a little more. She is eating okay. Her bowels are moving okay. OBJECTIVE: Vital Signs: Temp 97.7 degrees, pulse 76, respirations 18, blood pressure 206/80. HEENT: Pupils are equal and round. Lungs: Are clear in all lung miller. Cardiovascular: Regular rhythm and rate without murmur or S3. Abdomen: Is soft. Skin: Is warm and dry. Blood sugar 248, 222, 257. ASSESSMENT AND PLAN: 1. Recurrent deep venous thrombosis. She is on Eliquis 2.5 mg b.i.d. She did have a little bit of nose bleeding and probably related to the oxygen that is in place. 2. Anemia which is stable. Hemoglobin is stable. Continue her present Eliquis. 3. Pneumonia, sepsis which resolved. 4. Weakness, deconditioning, difficulty walking around. 5. Ventral hernia which is inoperable. So, continue occupational physical therapy. Continue present orders. Her hematocrit is 29, hemoglobin 8.6. We will check CBC and electrolytes again in the morning. Her last chest x-ray was on the . I will check that again tomorrow. cc: Jose Cruz Begum MD
[2019-02-20] MEDS: LIPITOR PO SCH (22:07)
[2019-02-21] MEDS: VANCOMYCIN 1,800 MG in NS 250 ML IV SCH (01:53)
[2019-02-21] MEDS: SYNTHROID PO SCH (06:06)
[2019-02-21] MEDS: LASIX IV SCH ×2 (06:06→18:10)
[2019-02-21] MEDS: PROTONIX PO SCH (06:07)
[2019-02-21] MEDS: HUMULIN R SUBQ SCH ×4 (06:07→22:08)
[2019-02-21] MEDS: LOFIBRA PO SCH (09:58)
[2019-02-21] MEDS: VITAMIN D PO SCH (09:58)
[2019-02-21] MEDS: FISH OIL CONCENTRATE PO SCH (09:58)
[2019-02-21] MEDS: CENTRUM SILVER PO SCH (09:58)
[2019-02-21] MEDS: ELIQUIS PO SCH ×2 (09:58→22:09)
[2019-02-21] MEDS: ASPIRIN PO SCH (09:59)
[2019-02-21] MEDS: ROCEPHIN 1 GM in NS 50 ML IV SCH (09:59)
[2019-02-21] MEDS: GLUCOPHAGE PO SCH ×2 (09:59→16:42)
[2019-02-21] MEDS: AMARYL PO SCH ×2 (09:59→16:42)
--- NOTE | 2019-02-21 10:03 | Diag Imaging Result Doc PS360 ---
CHEST-PORTABLE - 02/21/2019 INDICATION: pneumonia, atelectasis COMPARISON: 02/18/2019 FINDINGS: Stable pacemaker. Stable cardiomegaly and pulmonary vascular congestion. No infiltrates or edema. No significant pleural effusion. IMPRESSION: Cardiomegaly and pulmonary vascular congestion. Electronically signed by Hector Palma 02/21/2019 10:01 AM
[2019-02-21] MEDS: LEVEMIR SUBQ SCH (10:07)
--- NOTE | 2019-02-21 14:43 | PROGRESS NOTE ---
DATE: 02/21/2019 SUBJECTIVE: Ms. Zimmerman feels a little better, maybe a little swelling has gone down in the left leg. I discussed with her son yesterday. He would like her to go to rehab tomorrow. She feels a little stronger. OBJECTIVE: Vital signs: Temperature 97.5 degrees, pulse 86, respirations 17, blood pressure 170/76. Urine output is 5800 mL. HEENT: Pupils are equal and round. Lungs: Clear in all lung miller. Cardiovascular: Regular rhythm and rate without murmur or S3. DIAGNOSTIC DATA: Chest x-ray shows cardiomegaly, pulmonary vascular congestion. ASSESSMENT AND PLAN: 1. Recurrent deep venous thrombosis, so she is on Eliquis. Continue. 2. Anemia which is stable. 3. Treating her for pneumonia, which is better. 4. Weakness and deconditioning. 5. Ventral hernia. 6. Venous insufficiency. She does have a lot of swelling in her feet, and I think a lot of this is from venous insufficiency from her ventral hernia. She had a myocardial perfusion scan on 07/24/2018. At that time appeared to have normal left ventricular function. She had an echocardiogram with Doppler in 12/2017 and at that time, ejection fraction appeared to be 55% to 60% with pulmonary pressure 38 to 43 mmHg. So we are going to continue physical therapy and see if we can get her to rehab the first of the week. Treating her for possible pneumonia. Her latest x-ray did not show any infiltrate. There was some pulmonary venous hypertension. cc: Jose Cruz Begum MD
[2019-02-21] MEDS: NS 1,000 ML IV SCH (16:45)
[2019-02-21] MEDS: LIPITOR PO SCH (22:08)
[2019-02-22] MEDS: VANCOMYCIN 1,800 MG in NS 250 ML IV SCH (01:46)
[2019-02-22] MEDS: PROTONIX PO SCH (07:07)
[2019-02-22] MEDS: SYNTHROID PO SCH (07:07)
[2019-02-22] MEDS: LASIX IV SCH (07:07)
[2019-02-22] MEDS: HUMULIN R SUBQ SCH ×4 (07:07→20:42)
[2019-02-22] MEDS: AMARYL PO SCH ×2 (08:29→17:00)
[2019-02-22] MEDS: GLUCOPHAGE PO SCH ×2 (08:29→17:00)
[2019-02-22] MEDS: ELIQUIS PO SCH ×2 (08:29→20:41)
[2019-02-22] MEDS: LOFIBRA PO SCH (08:29)
[2019-02-22] MEDS: VITAMIN D PO SCH (08:29)
[2019-02-22] MEDS: FISH OIL CONCENTRATE PO SCH (08:29)
[2019-02-22] MEDS: CENTRUM SILVER PO SCH (08:29)
[2019-02-22] MEDS: ROCEPHIN 1 GM in NS 50 ML IV SCH (08:29)
[2019-02-22] MEDS: ASPIRIN PO SCH (08:29)
[2019-02-22] MEDS: LEVEMIR SUBQ SCH (08:31)
--- NOTE | 2019-02-22 12:30 | PROGRESS NOTE ---
DATE: 02/22/2019 SUBJECTIVE: Ms. Zimmerman does feel better. She feels like the swelling has gone down some. Her breathing is comfortable and I think she is willing to go to [facility]. She wants to go tomorrow. OBJECTIVE: Temperature 97.8 degrees, pulse 80, respirations 16, blood pressure 170/66. Pupils are equal and round. Lungs are clear in all lung miller. Cardiovascular Examination: Regular rhythm and rate without murmur or S3. Abdomen is soft. Skin is warm and dry. Urine output is 3600 mL. Blood sugar 292, 152, 291. ASSESSMENT/PLAN: 1. Recurrent deep venous thrombosis. She is on Eliquis, continue. 2. Anemia, which is stable. 3. Questionable pneumonia on presentation. It appears that she is breathing comfortably. I do not see any active pneumonia. 4. Weakness and deconditioning. 5. Ventral hernia, which is large. 6. Venous insufficiency. We have diuresed her a little bit. I want to be careful not to over- diurese her but her swelling has gone down in her legs. I think a lot of that swelling in her leg is mechanical from venous insufficiency and her large ventral hernia, so we will try and get her ready to go to [facility]. I think we can stop her ceftriaxone, stop her vancomycin, and see if we can get her ready to go tomorrow morning. LAB: I want to check electrolytes again. We will check that today and CBC. There is a question on her iron deficiency and I think I will go ahead and give her another iron infusion. I do not know if she will be able to get that at rehab. She had hematology/oncology evaluate. She has iron deficiency anemia. They had lowered Eliquis to 2.5 twice a day and we will see if she will be ready for [facility] tomorrow. cc: Jose Cruz Begum MD
[2019-02-22 13:09] LABS: CALCIUM 9.4 mg/dL (8.8-10.2); MAGNESIUM 1.4 mg/dL (1.5-2.7); POTASSIUM 3.7 mmol/L (3.5-5.1)
[2019-02-22] MEDS: NS 1,000 ML IV SCH (18:03)
--- NOTE | 2019-02-22 18:46 | DISCHARGE SUMMARY ---
ADMISSION DATE: 02/15/2019 DISCHARGE DATE: EXPECTED DATE OF DISCHARGE: 02/23/2019 She is a patient of Dr. Abdi. A 73-year-old, she is well known to our service. 1. History of paroxysmal atrial fibrillation, had a pacemaker placed 2 months ago and sounds like this has helped as well as her edema swelling. This was placed for bradycardia and sick sinus syndrome. 2. Coronary artery disease. 3. Diastolic heart failure. 4. Chronic kidney disease. 5. Right abdominal hernia which is very large and has small bowel in it, which was required and ileostomy placement. The daughter came to pick her up, was going to take her for iron infusion for iron deficiency anemia, and she struggled to get to the door and was very weak and so they called paramedics, and she is brought here to the emergency room. DETAILED MEDICAL HISTORY: 1. Coronary artery disease. 2. Diastolic heart failure. Ejection fraction 65% to 70% on last recording. 3. Diabetes mellitus type 2. 4. Chronic kidney disease, between stage 3 and 4. 5. Hypertension. 6. Hypothyroidism. 7. Morbid obesity. 8. Massive abdominal hernia with an ileostomy unresectable. 9. Ileostomy secondary to history of small-bowel obstruction. 10. Gastroesophageal reflux disease. 11. Paroxysmal atrial fibrillation. 12. Iron deficiency anemia for which she gets infusions. SPICE FUMIGATOR: Ej rCawford MD PAST SURGICAL HISTORY: 1. Status post tonsillectomy. 2. Abdominal hernia repair. 3. Small bowel obstruction. ADMISSION DIAGNOSES: 1. General weakness, thought this was multifactorial deconditioning. The son states she has trouble walking around. She does use a walker. She has a large ventral hernia, and she has iron deficiency anemia with microcytic anemia as well as underlying chronic kidney disease. We gave her some iron sucrose while she was in the hospital. Her blood counts remained hemoglobin 8.6 and hematocrit 29 with an MCV of 75. 2. Diastolic dysfunction in the face of chronic kidney disease, and she has chronic venous insufficiency as well because of the large ventral hernia. It is difficult to know where her volume status is. We did diurese her with Lasix. We did give her some fluid as well though, and she had some swelling in her lower extremities. Her creatinine was 1.0. When she presented to the hospital, creatinine was 1.5 and then 1.7. Creatinine came down to 1.0 with some diuresis. I think a good portion of her edema is from chronic venous insufficiency, and she will have to try and elevate her legs as much she can, and I think a lot of the insufficiency is from her ventral hernia so I would encourage elevating her legs at nighttime to try and be a little above her heart if we can, but her renal function has dramatically improved. 3. Diabetes mellitus type 2. Sugars were checked, pattern sugars and they remained under good control. 4. History of hypercholesterolemia. 5. History of atrial fibrillation and sick sinus syndrome. She has had a pacemaker placed, and this apparently has helped according to the family. 6. Iron deficiency anemia. We did ask Hematology to see, Dr. Tri Santos, and she gives her parenteral iron. 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 She had recently come in Dr. Santos's office with a decline in her hemoglobin of 2 g. Her iron had significantly declined, and the patient had denied any marilin bleeding and asymptomatic so started her on some parenteral iron. The opinion was to continue Eliquis, but lower the dose to 2.5 mg due to decline in her iron, and lastly, there is a question on whether she presented with infection. We treated her for potential pneumonia. Clinically, it did not look like she had a true pneumonia. Antibiotics were stopped. Her breathing was comfortable. With her general weakness and inability to ambulate, her family would like her to go to rehab. As far as the question of getting iron infusions, we can address that at a later time. DISCHARGE MEDICATIONS: She will continue her DuoNebs, Eliquis at 2.5 mg b.i.d., aspirin 81 mg a day, Lipitor 40 mg a day, Tessalon Perles 100 mg t.i.d. p.r.n., vitamin D 5000 units daily, fenofibrate 160 mg q.a.m., Flonase 1 puff b.i.d. p.r.n. and I am going to continue the Lasix probably at 60 mg p.o. q.a.m., Amaryl 4 mg p.o. b.i.d., Levemir 40 mg subcutaneous daily, Synthroid 200 mcg daily p.o., Glucophage 500 mg b.i.d., Centrum Silver 1 a day, fish oil concentrate 1000 mg daily, Protonix 40 mg daily. cc: Jose Cruz Begum MD MTDD
[2019-02-22] MEDS: LIPITOR PO SCH (20:41)
[2019-02-23] MEDS: SYNTHROID PO SCH (06:36)
[2019-02-23] MEDS: PROTONIX PO SCH (06:36)
[2019-02-23] MEDS: TESSALON PO PRN (06:36)
[2019-02-23] MEDS: HUMULIN R SUBQ SCH ×2 (06:46→12:37)
[2019-02-23 07:52] LABS: HEMOGLOBIN 8.5 g/dL (12.0-16.0); MCH 22.8 PG (27-31); MCHC 29.3 g/dL (33-37); RBC 3.72 XMIL (4.2-5.4); RDW 18.2 % (11.5-14.5); WBC 6.85 X1000 (4.8-10.8)
[2019-02-23 08:12] LABS: AGAP 7; BUN 24 mg/dL (8-22); CALCIUM 9.2 mg/dL (8.8-10.2); CHLORIDE 98 mmol/L (98-107); COSMO 287; CREATININE 0.8 mg/dL (0.5-0.9); ESTIMATED GFR > 60; GLUCOSE 230 mg/dL (70-104); MAGNESIUM 1.4 mg/dL (1.5-2.7); PHOSPHORUS 3.3 mg/dL (2.7-4.5); POTASSIUM 3.8 mmol/L (3.5-5.1); SODIUM 138 mmol/L (136-145); TCO2 33 mmol/L (25-35)
[2019-02-23] MEDS: ASPIRIN PO SCH (08:32)
[2019-02-23] MEDS: LEVEMIR SUBQ SCH (08:32)
[2019-02-23] MEDS: VITAMIN D PO SCH (08:32)
[2019-02-23] MEDS: AMARYL PO SCH (08:32)
[2019-02-23] MEDS: CENTRUM SILVER PO SCH (08:32)
[2019-02-23] MEDS: ELIQUIS PO SCH (08:32)
[2019-02-23] MEDS: GLUCOPHAGE PO SCH (08:32)
[2019-02-23] MEDS: LOFIBRA PO SCH (08:32)
[2019-02-23] MEDS: FISH OIL CONCENTRATE PO SCH (08:32)
--- NOTE | 2019-02-23 08:35 | Diag Imaging Result Doc PS360 ---
EXAM: CHEST-PORTABLE 02/23/2019 HISTORY: pneumonia TECHNIQUE: AP portable upright at 0816 COMMENT: There is increased interstitial opacity particularly in the left base and increased pulmonary vascularity. The heart size is enlarged. The inspiration is less optimal than on 02/21/2019, however otherwise are has been no appreciable change. IMPRESSION: Cardiomegaly. Pulmonary edema plus minus pneumonia, particularly in the left lower lobe. Electronically signed by Haider Boateng 02/23/2019 8:33 AM
[2019-02-23] MEDS ORDERED: LASIX PO SCH (09:00)
[2019-02-23] MEDS ORDERED: MAGNESIUM SULFATE 2 GM/S.W.I. 2 GM/50 ML IVPB IV ONE (10:06)
[2019-02-23 11:59] VITALS: BP 159/67
== END 2019-02-23 15:38 | DRG 812 ==
LOC: SUPCPDRO → ED 10:47 → SUATTDRO 15:27 → 1N 15:27
PROVIDERS: ATTEND Internal Medicine

== ENCOUNTER 2019-05-05 21:03 | Inpatient (IN) ==
[2019-05-05] MEDS ORDERED: NS 1,000 ML IV PRN (21:45)
[2019-05-05 22:10] LABS: BASO# 0.03 X1000 (0.0-0.2); BASO% 0.3 % (0.0-0.8); EOS# 0.41 X1000 (0.0-0.7); EOS% 4.5 % (0.0-10.0); HEMATOCRIT 35.6 % (37.0-47.0); HEMOGLOBIN 11.1 g/dL (12.0-16.0); IMM GRAN# 0.02 X1000 (0.0-0.04); IMM GRAN% 0.2 % (0.0-0.5); LYMPH# 1.47 X1000 (1.2-3.4); LYMPH% 16.1 % (20.5-51.1); MCH 24.4 PG (27-31); MCHC 31.2 g/dL (33-37); MCV 78.2 FL (81-99); MONO# 0.86 X1000 (0.11-0.59); MONO% 9.4 % (1.7-9.3); NEUT# 6.34 X1000 (1.4-6.5); NEUT% 69.5 % (42.2-75.2); PLT 287 X1000 (130-400); RBC 4.55 XMIL (4.2-5.4); RDW 24.4 % (11.5-14.5); WBC 9.13 X1000 (4.8-10.8)
[2019-05-05 22:17] LABS: INR 1.01; PROTIME 13.4 Seconds (11.0-16.0)
[2019-05-05 22:30] LABS: PTT < 20.0 Seconds (22.3-41.8)
[2019-05-05 22:31] LABS: AGAP 14; ALB/GLOB RATIO 1.1; ALBUMIN 3.6 g/dL (3.5-5.0); ALKALINE PHOSPHATASE 60 U/L (32-104); BUN 21 mg/dL (8-22); CALCIUM 8.8 mg/dL (8.8-10.2); CHLORIDE 98 mmol/L (98-107); COSMO 281; CREATININE 0.9 mg/dL (0.5-0.9); ESTIMATED GFR > 60; GLUCOSE 166 mg/dL (70-104); GOT 51 U/L (10-30); GPT 18 U/L (10-36); POTASSIUM 4.8 mmol/L (3.5-5.1); SODIUM 137 mmol/L (136-145); TCO2 25 mmol/L (25-35); TOTAL BILIRUBIN 0.26 mg/dL (0.20-1.00); TOTAL PROTEIN 6.9 g/dL (6.3-8.3)
--- NOTE | 2019-05-05 22:39 | EKG Report ---
Test Performed on : 05/05/2019 9:15:13 PM Test Reason : AMS Blood Pressure : / mmHG Vent. Rate : 087 BPM Atrial Rate : 087 BPM P-R Int : 178 ms QRS Dur : 098 ms QT Int : 372 ms P-R-T Axes : 064 -12 023 degrees QTc Int : 447 ms Normal sinus rhythm. Junctional ST depression, probably normal Borderline ECG When compared with ECG of 15-FEB-2019 10:58, QRS duration has decreased Unconfirmed Result
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
[2019-05-05 22:56] LABS: URINE SOURCE CATH
[2019-05-05 23:06] LABS: BILIRUBIN URINE NEGATIVE (NEGATIVE); BLOOD URINE TRACE (NEGATIVE); COLOR YELLOW; GLUCOSE URINE TRACE mg/dL (NEGATIVE); KETONE URINE NEGATIVE (NEGATIVE); LEUKOCYTES URINE NEGATIVE (NEGATIVE); NITRITE URINE NEGATIVE (NEGATIVE); PROTEIN URINE 300 mg/dL (NEGATIVE); SP GRAVITY URINE 1.012; TURBIDITY URINE CLEAR (CLEAR); UROBILINOGEN URINE NORMAL (NORMAL)
[2019-05-05 23:07] LABS: UR EPITHELIAL CELLS <10 /HPF (<10); URINE BACTERIA NEGATIVE /HPF; URINE RBC <10 /HPF (<10); URINE WBC <10 /HPF (<10)
[2019-05-05 23:10] LABS: UR AMPHETAMINES QUAL NONE DETECTED (NONE DETECT); UR BARBITUATES QUAL NONE DETECTED (NONE DETECT); UR BENZODIAZEPIN QUAL NONE DETECTED (NONE DETECT); UR CANNABINOIDS QUAL NONE DETECTED (NONE DETECT); UR COCAINE QUAL NONE DETECTED (NONE DETECT); UR METHADONE QUAL NONE DETECTED (NONE DETECT); UR OPIATES QUAL NONE DETECTED (NONE DETECT); UR OXYCODONE QUAL NONE DETECTED (NONE DETECT); UR PCP QUAL NONE DETECTED (NONE DETECT)
[2019-05-06] MEDS ORDERED: ROCEPHIN 1 GM in NS 50 ML IV ONE (00:07)
[2019-05-06] MEDS ORDERED: VENTOLIN HFA INH PRN (00:44)
[2019-05-06] MEDS ORDERED: IMODIUM PO PRN (00:44)
[2019-05-06] MEDS ORDERED: APRESOLINE IV PRN (00:44)
[2019-05-06] MEDS ORDERED: DUONEB (A & A) INH PRN (00:44)
--- NOTE | 2019-05-06 05:46 | Diag Imaging Result Doc PS360 ---
EXAM: CT HEAD W/O CONTRAST HISTORY: AMS TECHNIQUE: CT head without contrast COMPARISON: 11/28/2017 FINDINGS: No parenchymal hemorrhage. No epidural or subdural hematoma. No subarachnoid hemorrhage. There are chronic microvascular ischemic changes. Old right occipital lacunar infarct. This was not present on the prior exam. Severe atherosclerosis. No mass identified on this noncontrasted exam. No hydrocephalus. No sinus opacification. IMPRESSION: 1.No hemorrhage 2.Chronic microvascular ischemic changes 3.Right occipital lacunar infarct which is old although that was not present on the prior study 4.Severe atherosclerosis in the distal internal carotid arteries, vertebral arteries, basilar artery, and middle cerebral arteries. 5.A preliminary report was given at 10:46 PM on 05/05/2029 This exam was performed using automated exposure control, adjustment of mA or kV according to patient size, and/or use of iterative reconstruction technique. Electronically signed by Mustapha Reynoso 05/06/2019 5:43 AM
[2019-05-06] MEDS: PRILOSEC PO SCH ×2 (05:49→06:07)
[2019-05-06] MEDS: SYNTHROID PO SCH ×2 (05:49→06:07)
[2019-05-06 06:03] LABS: BASO# 0.02 X1000 (0.0-0.2); BASO% 0.2 % (0.0-0.8); EOS% 3.7 % (0.0-10.0); HEMATOCRIT 36.4 % (37.0-47.0); HEMOGLOBIN 11.2 g/dL (12.0-16.0); IMM GRAN# 0.02 X1000 (0.0-0.04); IMM GRAN% 0.2 % (0.0-0.5); LYMPH# 1.56 X1000 (1.2-3.4); LYMPH% 19.3 % (20.5-51.1); MCH 24.1 PG (27-31); MCHC 30.8 g/dL (33-37); MCV 78.4 FL (81-99); MONO% 11.1 % (1.7-9.3); MPV 10.7 FL (7.4-10.4); NEUT% 65.5 % (42.2-75.2); PLT 252 X1000 (130-400); RBC 4.64 XMIL (4.2-5.4); RDW 24.7 % (11.5-14.5)
[2019-05-06] MEDS: HUMALOG SUBQ SCH ×4 (06:07→20:17)
--- NOTE | 2019-05-06 06:35 | HISTORY AND PHYSICAL ---
CHIEF COMPLAINT: Unable to talk, stroke-like symptoms. PRIMARY CARE PROVIDER: Dr. Duke. HISTORY OF PRESENT ILLNESS: This is a 73-year-old male who is well known to our service. She has an extensive past medical history such as diastolic heart failure, chronic kidney disease, coronary artery disease, and paroxysmal atrial fibrillation. She was having sick sinus syndrome with bradycardic spells, so she had a pacemaker placed in December 2018. She remains on chronic Eliquis and a daily aspirin. However, today around 2 p.m. the best the family can tell, she started having total expressive aphasia and she, for the most part, cannot speak at all. She will laugh and appears to be alert and oriented. However, she cannot form any words. She also had some right-sided weakness. No facial asymmetry of any sort. CT scan was completed in the emergency room that showed an acute or subacute cerebrovascular accident. The ER provider is speaking to [facility]. Barring them accepting her, in which case this will be a consultation, she will be admitted for further evaluation and treatment. PAST MEDICAL HISTORY: Paroxysmal atrial fibrillation on Eliquis, bradycardia and sick sinus syndrome with pacemaker implantation, coronary artery disease, diastolic heart failure, chronic kidney disease, massive abdominal hernia with ileostomy placement secondary to small bowel obstruction, diabetes mellitus type 2, hypertension, hypothyroidism, morbid obesity, gastroesophageal reflux disease, iron deficiency anemia for which she receives infusions from [facility], recurrent deep venous thrombi. PREVIOUS SURGICAL HISTORY: Pacemaker implantation, ileostomy, tonsillectomy, abdominal hernia repair. SOCIAL HISTORY: Lives alone. Daughter and son very attentive. She has been to rehab a couple of times. No alcohol, tobacco, or illicit drugs. FAMILY HISTORY: Notable for heart disease, diabetes, and hypertension. ALLERGIES: Oral and IV contrast. HOME MEDICATIONS: DuoNeb q.2 h. p.r.n., albuterol inhaler 1 to 2 puffs p.r.n., Eliquis 2.5 mg p.o. b.i.d., aspirin 81 mg p.o. daily, atorvastatin 40 mg p.o. at bedtime, vitamin D3 5000 units p.o. daily, Folbic tablet 2 mg p.o. daily, TriCor 160 mg p.o. q.a.m., Flonase inhalation daily, Lasix 20 mg p.o. daily, glimepiride 4 mg p.o. b.i.d., Levemir 40 units sub q daily, Synthroid 200 mcg p.o. daily, Imodium AD 2 mg p.o. q.a.m., metformin 500 mg p.o. b.i.d., Centrum Silver 1 daily, fish oil 1 p.o. b.i.d., Protonix 40 mg p.o. daily. REVIEW OF SYSTEMS: A 14-point review of systems could not be reviewed with the patient as she is totally aphasic. She does shake her head "no" that she has no pain or complaints. Pertinent positives for admission are listed above in the HPI. PHYSICAL EXAMINATION: VITAL SIGNS: Temperature 98.4 degrees, pulse 87, respirations 16, blood pressure 196/86, oxygen saturation 92% on room air. GENERAL: A pleasant 73-year-old female who is nonverbal at this time. She is awake and alert, appears to be oriented. However, she is nonverbal. She does follow commands. No acute distress. HEENT: Head is atraumatic, normocephalic. Pupils equal, round and reactive to light. Extraocular eye movement is intact. Sclerae anicteric. Conjunctiva is mildly pale. Oral mucosa is moist. NECK: Supple. No JVD. No thyromegaly. Trachea is midline. No cervical lymphadenopathy. CARDIAC: S1, S2 appreciated. No murmurs, gallops or rubs. LUNGS: Clear to auscultation bilaterally. No rhonchi, wheezes or rales. ABDOMEN: Large ventral hernia around 2 feet from its origin at the abdomen. No erythema or signs of alteration. Ileostomy bag is clean, dry, and intact with drainage in the bag, no blood was noted. EXTREMITIES: 1+ pitting edema with erythema in bilateral lower extremities. No tenderness or ulcerations noted. NEUROLOGICAL: The patient is nonverbal at this time. She does have some right-sided weakness roughly 3/5, left side is 5/5. Cranial nerves 2 through 12 were otherwise grossly normal. DIAGNOSTIC DATA: Chest x-ray shows cardiomegaly. CT of the head shows probable acute cerebrovascular accident but cannot rule out it being subacute. LABORATORY DATA: WBC 9.13, hemoglobin 11.1, hematocrit 35.6, platelet count 287. Sodium 137, potassium 4,8, chloride 98, carbon dioxide 25, BUN 21, creatinine 0.9, glucose 166. Troponin 0.325. Urine unremarkable. Toxicology screen negative. ASSESSMENT AND PLAN: 1. Acute cerebrovascular accident. As noted above, the ER provider is calling [facility] for possible transfer. Barring that happening, she will be admitted here with neurology consultation, speech therapy, occupational therapy, physical therapy, and case management consultation for possible rehab after discharge. 2. Macrocytic anemia with iron deficiency. Her levels are grossly normal. She sees Dr. Tri Santos for infusions. Her hemoglobin and hematocrit have optimum levels it appears at this point. We will continue to monitor. 3. Diastolic heart failure. Aware. We will be mindful of her fluid volume status. Continue Lasix daily. 4. Diabetes mellitus type 2 with hyperglycemia. Barring transfer, we will check hemoglobin A1c, place on sliding scale insulin and fingerstick blood sugar. 5. Hypertension. We will allow for permissive hypertension at this time. Will hold oral antihypertensives. Will give p.r.n. medication if the patient's systolic blood pressure is higher than 210 systolic. 6. Hyperlipidemia. Continue atorvastatin. 7. Atrial fibrillation with sick sinus syndrome and pacemaker implantation. The patient does take Eliquis daily and 81 mg aspirin. It is possible that the patient may need to transition from aspirin to Plavix. However, I will defer that to Cardiology and Neurology. 8. History of deep venous thrombi. Aware. See above. 9. Hypothyroidism. Check TSH. Continue Synthroid. Further recommendations per patient's clinical course. Dictated by CLINT Polk for Mary Pat MD cc: CLINT Polk MD
[2019-05-06 06:59] LABS: URINE SOURCE CLEAN CATCH
[2019-05-06 07:00] LABS: AGAP 12; BUN 18 mg/dL (8-22); CALCIUM 9.2 mg/dL (8.8-10.2); CHLORIDE 100 mmol/L (98-107); COSMO 282; CREATININE 0.7 mg/dL (0.5-0.9); ESTIMATED GFR > 60; GLUCOSE 143 mg/dL (70-104); POTASSIUM 3.8 mmol/L (3.5-5.1); SODIUM 139 mmol/L (136-145); TCO2 27 mmol/L (25-35)
[2019-05-06 07:01] LABS: BILIRUBIN URINE NEGATIVE (NEGATIVE); BLOOD URINE TRACE (NEGATIVE); COLOR YELLOW; GLUCOSE URINE TRACE mg/dL (NEGATIVE); KETONE URINE NEGATIVE (NEGATIVE); LEUKOCYTES URINE NEGATIVE (NEGATIVE); NITRITE URINE NEGATIVE (NEGATIVE); PROTEIN URINE 600 mg/dL (NEGATIVE); SP GRAVITY URINE 1.014; TURBIDITY URINE CLEAR (CLEAR); UROBILINOGEN URINE NORMAL (NORMAL)
[2019-05-06 07:03] LABS: UR EPITHELIAL CELLS <10 /HPF (<10); URINE BACTERIA NEGATIVE /HPF; URINE RBC <10 /HPF (<10); URINE WBC <10 /HPF (<10)
--- NOTE | 2019-05-06 07:39 | Diag Imaging Result Doc PS360 ---
EXAM: CHEST-PORTABLE INDICATION: stroke like symptoms TECHNIQUE: One view COMPARISON: 02/23/2019 FINDINGS: There is mild interstitial thickening similar to the previous study likely representing a combination of mild fibrotic change and interstitial edema. There is a questionable trace effusion at the left lung base. The cardiac silhouette is mildly prominent but stable. The pacemaker is in stable position. IMPRESSION: Stable mild interstitial thickening and a questionable trace left effusion. Electronically signed by Juan Diego Martinez 05/06/2019 7:37 AM
[2019-05-06] MEDS ORDERED: ELIQUIS PO SCH (09:00)
--- NOTE | 2019-05-06 09:27 | PROGRESS NOTE ---
DATE: 05/06/2019 SUBJECTIVE: This patient is lying comfortably in bed. She is able to say some words and actually she was able to say her son's name. Apparently when she came in, she was not able to talk at some point and then she started saying some words like yes or no. She is able to recognize colors and she is able to write down her name or her son's name. She is following commands. I do not see any focal weakness but it looks like she has expressive aphasia. Upon admission, as per the admitting team, she had a right-sided weakness around 3/5 but I cannot notice that today. As per the son, who is at the bedside, she seems to be better. They asked for an MRI but this patient has a pacemaker so I will stop it. She had a CT scan of the head that did not show any hemorrhage but she has chronic microvascular ischemic changes and a right occipital lacunar infarct which is old, although was not present on the prior study. Also, she has severe atherosclerosis in the distal internal carotid arteries, vertebral arteries, basilar artery, and middle cerebral arteries. OBJECTIVE: Vital Signs: Temperature 97.7 degrees, pulse 82, respiratory rate 16, blood pressure 187/75, oxygen saturation 95% on room air. HEENT: Head normocephalic. No trauma. PERRLA. Neck: Supple. No JVD. No masses. Central trachea. Chest: Clear to auscultation. No wheezing. No rales. Abdomen: Soft, nontender, nondistended. No hepatosplenomegaly. Extremities: She does have some lower extremity edema with some chronic venous stasis and redness but I do not think there is cellulitis. Neurological Examination: This patient is alert. She is awake. I do not see any facial deformity. Her strength is good in her 4 extremities. She is able to recognize colors. She is able to say her son's name but she is not able to answer all my questions. She is able to say yes or no and okay. She always repeats what I say without any problem. Apparently, no swallow problems either. Laboratory: WBC 8.1, hemoglobin 11.2, hematocrit 36.4, platelets 252,000. Sodium 139, potassium 3.8, chloride 100, bicarbonate 27, BUN 18, creatinine 0.7, glucose 143, calcium 9.2. Troponins 0.3 x2. ASSESSMENT AND PLAN: 1. Acute cerebrovascular accident. Probably, she has an acute stroke. CT of the head showed a right occipital lacunar infarct which is old, although was not present on the prior study, and severe atherosclerosis, no hemorrhage. The night team asked for an MRI but this patient has a pacemaker so I will stop it. Neurology department has been consulted. We will allow this patient's blood pressure to be elevated. I will not make more changes. 2. Elevated troponins. Her troponins upon admission were 0.32 and then 0.36. Cardiology department has been consulted. She is not complaining of chest pain. She is not short of breath. We will monitor this closely. 3. History of atrial fibrillation with sick sinus syndrome and pacemaker implantation. She is on Eliquis and aspirin. Probably, we need to transition this patient from aspirin to Plavix. I will defer that to cardiology and neurology. 4. Hypertension. We will allow permissive hypertension at this time. 5. Type 2 diabetes, seems to be stable. We will monitor. 6. Microcytic anemia. Hemoglobin is around 11.2. As per the son, she has been evaluated for this before. I believe the hematology/oncology department has been on board before, Dr. Tri Santos. 7. Diastolic heart failure. Aware. Continue with the same management. 8. Hyperlipidemia. Continue with atorvastatin. 9. History of deep venous thrombosis. Aware. Continue with anticoagulation. 10. Hypothyroidism. I will ask for TSH and I will continue with the same management. She is on Synthroid already. cc: Saúl Ramos MD
[2019-05-06] MEDS ORDERED: ELIQUIS PO ONE (10:50)
[2019-05-06] MEDS: CENTRUM SILVER PO SCH (11:08)
[2019-05-06] MEDS: ASPIRIN PO SCH (11:08)
[2019-05-06] MEDS: FOLTX PO SCH (11:08)
[2019-05-06] MEDS: TRICOR PO SCH (11:08)
[2019-05-06] MEDS: VITAMIN D PO SCH (11:08)
[2019-05-06] MEDS: LASIX PO SCH (11:08)
--- NOTE | 2019-05-06 11:10 | CARDIOLOGY CONSULTATION ---
DATE: 05/06/2019 CHIEF COMPLAINT ON PRESENTATION: Dysarthria, possible stroke. HISTORY OF PRESENT ILLNESS: Ms. Zimmerman is a 73-year-old white female who all history is obtained from the son as the patient is unable to speak. She has a history of diastolic heart failure, chronic kidney disease, paroxysmal atrial fibrillation. She is maintained on Eliquis as an outpatient. In addition, she has a history of apparent sinus node dysfunction, requiring a pacemaker implantation. She presented for evaluation after her son saw her last night around 8:00, and she could not talk. They had thoughts that she might have a stroke. She was evaluated in the ER, and found to have an abnormal head CT. The last time they physically saw the patient was on Friday. The patient is not able to give any history of chest pain or shortness of breath, and presently the family cannot report that. They say she has had really no complaints, other than she has gotten much weaker over the last several weeks, being very feeble, in their words. PAST MEDICAL HISTORY: Significant for: 1. Sick sinus syndrome, along with junctional rhythm resulting in pacemaker implantation. This was done by Dr. Nancy krueger in [place]. 2. History of coronary artery disease. Recommended medical therapy per Dr. Eckert in the past. Last nuclear scan was in 07/2018 that showed a low-grade reversible perfusion defect in the inferior apical wall, suggestive of possible ischemia versus soft tissue attenuation. 3. Paroxysmal atrial fibrillation, maintained on Eliquis. 4. Diastolic failure. 5. Hypertension. 6. Hyperlipidemia. 7. Diabetes. 8. Renal insufficiency. 9. History of GI bleeding. She has an ileostomy that was done secondary to ulcerative colitis, and apparently has had issues with chronic anemia since that point. SOCIAL HISTORY: She apparently lives alone. She has a son present in the room, who is very involved in her life. No tobacco, alcohol, or illicit drugs. FAMILY HISTORY: Notable for heart disease as well as diabetes. REVIEW OF SYSTEMS: Unable to be obtained secondary to the patient being unable to verbally communicate. PHYSICAL EXAMINATION: Vital Signs: She is afebrile, heart rate 82, her blood pressure is 187/75. General: She is in no acute distress. HEENT: Oropharynx is moist. Poor dentition. Eye examination shows pink conjunctivae, white sclerae. Neck: No obvious thyromegaly or thyroid tenderness. Cardiovascular: She sounds to be in a regular rate and rhythm. She has no obvious murmurs. She has no S3. Extremities: She has no lower extremity edema. Chest: Sounds clear bilaterally. She has no increased work of breathing. Abdomen: Soft, nontender. She has an extremely large hernia encompassing essentially the entire right side of her abdominal wall. This extends well below her waist. She has an ostomy noted on that side, and seems to have good output. Neurological: She seems to be moving all extremities well. Her cranial nerves are intact, with the exception that she is unable to verbally communicate. Psychiatric: She seems pleasant, able to interact with the examiner. PERTINENT DATA: Her EKG reviewed by me shows sinus rhythm. She has no acute ischemic changes. Her head CT demonstrated a right occipital lacunar infarct, which appears to be old, although it was not present on 11/11/2017 study. She had severe atherosclerosis in the distal internal carotids, vertebrals, and basilar arteries, as well as a the middle cerebral arteries. Chest x- ray shows stable mild interstitial thickening with a questionable trace left-sided effusion. Her white count is 8.1, her hematocrit is 36, her platelet count is 252,000. Her sodium is 139, potassium 3.8, BUN 18, creatinine 0.7. Her troponin initially was 0.325, subsequently has been relatively flat at 0.363 and 0.369. Her LDL direct was 50, HDL was 30, total 105. ASSESSMENT: Ms. Zimmerman is a 73-year-old female who presented with stroke-like symptoms. She is found to have a troponin elevation. PLAN: Will check an echocardiogram. At this point, her troponin elevation may be secondary to her CVA. She does not have any acute ischemic findings on her EKG, nor does she have ischemic- type symptoms from a cardiac standpoint. I would recommend treatment of her blood pressure when she is outside of the permissive hypertension phase. I would recommend continuation of her apixaban. She is 73 years old, weighs more than 60 kg, and she has a creatinine of 0.7. I would recommend escalation of the Eliquis up to the standard dose for a patient such as this of 5 mg b.i.d. I would recommend continuation of statin therapy. I would not recommend an ischemia evaluation from a cardiac standpoint as this patient is not a candidate for invasive procedures considering her significant comorbidities. I have discussed this with her son. For now, we will continue to follow and treat medically. cc: Jace Bruner MD
--- NOTE | 2019-05-06 12:47 | CONSULTATION ---
DATE OF CONSULTATION: 05/06/2019 HISTORY OF PRESENT ILLNESS: Ms. Zimmerman is 73 years old and it looks like she has had a stroke. There is history of sudden onset of inability to make herself understood with speech. There may have been right-sided weakness. There is no definite history of prior stroke according to attentive brother at the bedside. She was reported to be speaking without difficulty with family earlier in the day yesterday and then suddenly became unable to speak. She had not complained of headache. There was never altered awareness or unconsciousness. The reported history of right-sided weakness is a little bit uncertain. She is not able to provide history due to dysphasia. Workup includes noncontrast CT of the head showing old changes including right occipital lacune, but no evidence of new dominant left hemisphere infarction, hemorrhage or mass. I believe that she has had vascular workup, but I do not have those reports. Risk factors include hypertension, atrial fibrillation, diabetes mellitus. She has history of sick sinus syndrome with bradycardia and pacemaker placement. She has hypothyroidism. She has chronic kidney disease. Lab shows anemia, blood sugars 140s-160s, normal cholesterol. Urine drug screen was all negative. Vital sign record shows she is afebrile. Heart rate was initially 120s, mostly 80s-90s since she settled in. Systolic blood pressures have ranged 170s to 190s. On exam, Ms. Zimmerman is awake, alert, attentive, smiling, cheerful, clearly attempting to communicate. She said a few words such as "thank you" but did not say anything else I could understand. She did not follow spoken or written commands. She did not respond when I called her name any differently than when I called other names. Facial motility is diminished bilaterally. Tongue is midline. I observed her chewing and swallowing without difficulty. The few words that she spoke were delivered clearly without dysarthria. She has full extraocular movements. She had blink with visual threat approaching from the right and from the left. Language dysfunction prevents her from communicating responses with visual field testing by confrontational finger counting. She used her arms and legs purposefully equally and well. Tone is symmetric. She did well on with each arm on [id number] testing. I did not test her gait. Plantar response is silent bilaterally. She responded to pinprick equally over the left and right foot. She cannot report responses on proprioception testing because of language disturbance. IMPRESSION AND PLAN: Apparent isolated global aphasia with sudden onset and stable course. In light of her age and risk factors, this seems likely acute ischemic dominant left hemisphere infarction. Initial negative CT is reassuring but would not exclude acute infarction. We will need to consider followup imaging. Unfortunately, MRI may not be an option because of her pacemaker placement and we can repeat CT scan in a day or so. I would continue allowing moderate blood pressure elevation until we get reports on the vascular studies. I would continue treating blood sugar and lipids aggressively. I would continue Eliquis for now. If repeat imaging shows large area of infarction, which is not likely in light of her fairly isolated deficit, we might need to reconsider holding anticoagulation short-term because of risk for converting ischemic infarction into hemorrhagic lesion. Thanks for asking Neurology to see Ms. Zimmerman. cc: MD DARVIN Hernandez III
[2019-05-06 18:01] LABS: CK INDEX 1.9 (0.0-2.5); CK-MB 3.69 ng/mL (0.0-5.0)
[2019-05-06] MEDS: ELIQUIS PO SCH (20:17)
[2019-05-06] MEDS: LIPITOR PO SCH (20:17)
[2019-05-06] MEDS ORDERED: LIPITOR PO SCH (21:00)
[2019-05-07] MEDS: SYNTHROID PO SCH (06:07)
[2019-05-07] MEDS: PRILOSEC PO SCH (06:07)
[2019-05-07] MEDS: HUMALOG SUBQ SCH ×4 (06:07→20:38)
[2019-05-07 06:09] LABS: BASO# 0.03 X1000 (0.0-0.2); BASO% 0.4 % (0.0-0.8); EOS# 0.39 X1000 (0.0-0.7); EOS% 5.7 % (0.0-10.0); HEMATOCRIT 34.5 % (37.0-47.0); HEMOGLOBIN 10.7 g/dL (12.0-16.0); LYMPH# 1.62 X1000 (1.2-3.4); LYMPH% 23.7 % (20.5-51.1); MCH 24.5 PG (27-31); MCV 79.1 FL (81-99); MONO% 11.7 % (1.7-9.3); MPV 10.8 FL (7.4-10.4); NEUT% 58.5 % (42.2-75.2); PLT 257 X1000 (130-400); RBC 4.36 XMIL (4.2-5.4); RDW 24.7 % (11.5-14.5); WBC 6.84 X1000 (4.8-10.8)
[2019-05-07 06:30] LABS: AGAP 13; BUN 15 mg/dL (8-22); CALCIUM 9.5 mg/dL (8.8-10.2); CHLORIDE 104 mmol/L (98-107); COSMO 295; CREATININE 0.9 mg/dL (0.5-0.9); ESTIMATED GFR > 60; GLUCOSE 190 mg/dL (70-104); POTASSIUM 3.6 mmol/L (3.5-5.1); SODIUM 145 mmol/L (136-145); TCO2 28 mmol/L (25-35)
[2019-05-07] MEDS: LASIX PO SCH (08:17)
[2019-05-07] MEDS: CENTRUM SILVER PO SCH (08:17)
[2019-05-07] MEDS: ASPIRIN PO SCH (08:17)
[2019-05-07] MEDS: VITAMIN D PO SCH (08:17)
[2019-05-07] MEDS: TRICOR PO SCH (08:17)
[2019-05-07] MEDS: ELIQUIS PO SCH ×2 (08:17→20:36)
[2019-05-07] MEDS: FOLTX PO SCH (08:17)
--- NOTE | 2019-05-07 10:56 | PROGRESS NOTE ---
DATE: 05/07/2019 SUBJECTIVE: The patient is sitting in bed. She has no new complaints. She is still able to say some words. She is following commands without any problem. I do not see any focal weakness but she seems to have expressive aphasia. CT scan has been negative, probably I will repeat another one. I will repeat a new CT scan again probably tomorrow. OBJECTIVE: Vital Signs: Temperature 97.8 degrees, pulse 80, respiratory rate 19, blood pressure 183/83, oxygen saturation 93 on room air. HEENT: Head normocephalic. No trauma. PERRLA. Neck: Supple. No JVD. No masses. Central trachea. Chest: Clear to auscultation. No wheezing. No rales. Abdomen: Soft, nontender, nondistended. No hepatosplenomegaly. Extremities: She does have some lower extremity edema and some chronic venous stasis and redness. I do not think she has an infection. Neurological: The patient is alert. She is awake. I do not see any facial deformity. Her strength is good in the 4 extremities. She is able to recognize colors. She is able to say her son's name. She is following commands without any problem, but she is not answering all of my questions. LABORATORY DATA: WBC 6.8, hemoglobin 10.7, hematocrit 34.5, platelets 257,000. Sodium 145, potassium 3.6, chloride 104, bicarbonate 28, BUN 15, creatinine 0.9, glucose 190, calcium 9.5, TSH 0.9. ASSESSMENT AND PLAN: 1. Likely acute cerebrovascular accident. CT of the head showed a right occipital lacunar infarct which is old, although was not present on the prior study and she has severe atherosclerosis, no hemorrhage. MRI cannot be done due to a pacemaker. Neurology Department on board. I will wait for more recommendations. Likely, this patient will need to go to a rehab center. 2. Elevated troponins likely due to the cerebrovascular accident. She is not complaining of chest pain. Cardiology on board. 3. History of atrial fibrillation with sick sinus syndrome and pacemaker implantation. She is on anticoagulation and Eliquis. I will follow the recommendations of Cardiology and Neurology. 4. Hypertension. She was admitted on the and she has been without any kind of blood pressure medication for more than 24 hours. I will start with low dose of amlodipine to see how she does, but I do not want decrease the blood pressure aggressively at this moment unless Neurology Department recommends that. 5. Type 2 diabetes, seems to be stable. We will continue to monitor. 6. Microcytic anemia. Hemoglobin is around 10.7. We will continue to monitor. She has been seeing Dr. Santos as an outpatient. 7. Diastolic heart failure. Aware. Continue with same management. 8. Hyperlipidemia. Continue with atorvastatin. 9. History of deep venous thrombosis. Aware. Continue with anticoagulation. 10. Hypothyroidism, stable. She is on Synthroid already. cc: Saúl Ramos MD
--- NOTE | 2019-05-07 13:46 | PROGRESS NOTE ---
DATE: 05/07/2019 Ms. Zimmerman has shown significant recovery of language function since yesterday. I do not see any new reports on workup. I believe that she has had carotid ultrasound with report pending. Systolic blood pressures have been 150s to 190s and she has tolerated that range. She reports no headache with systolic BP 190s. This morning, she is awake, alert, attentive and appropriate as before. She was able to answer some questions appropriately but still had some trouble finding words and some interruptions in her speech. She was able to name objects correctly with some mistakes and she had trouble naming parts of objects. She did well with commands requiring digit distinction and right/left distinction. She had some trouble repeating pronouns. Visual miller are full. Extraocular movements are full. Facial motility is symmetric. She has good power in the limbs. I observed her chewing and swallowing without difficulty. Neck is supple. IMPRESSION: Likely dominant left hemisphere infarction with stable course and significant improvement in the last 24 hours. Unfortunately, MRI may not be an option and we might repeat her CT scan electively expecting to find evidence of left hemisphere infarction. I would continue hydration and supporting blood pressure until we get the carotid report. Then, if she continues stable, we can begin treating blood pressure cautiously. Would plan to repeat her CT scan in a day or 2, sooner if she deteriorates. Thanks for asking Neurology to see Ms. Zimmerman. cc: MD DARVIN Hernandez III
--- NOTE | 2019-05-07 16:47 | ECHO REPORT ---
ORDER DATE: 05/06/2019 INTERPRETING PHYSICIAN: Dr. Crawford CLINICAL INDICATIONS: Chest pain and dyspnea. Stroke. M-MODE MEASUREMENTS: Left ventricle end diastole: 3.8 cm. Left ventricle end systole: 2.8 cm. Posterior wall: 1.2 cm. Interventricular septum: 1.2 cm. Left atrium: 3.9 cm. Aortic diameter: 2.8 cm. SUMMARY OF 2-DIMENSIONAL IMAGING: The study is difficult. The patient has poor windows. 1. The aortic valve looks grossly normal. Color flow mapping unremarkable. 2. The mitral valve shows calcification of the annulus. Color flow mapping indicates mild degree of regurgitation. 3. Pulse wave Doppler of mitral inflow shows reversal of the E and the A ratio. Ratio is about 0.6. 4. The apical views are limited. Left ventricular function appears to be normal.EF 55-60%. 5. The right ventricle also appears to be normal. There is an epicardial fat pad. 6. The atria did not appear to be dilated. There is a trivial physiologic pericardial effusion. 7. The pulmonic valve is grossly normal. Color flow mapping unremarkable. 8. There are no masses or thrombus. Clinical correlation is recommended. cc: MD Andriy Gardner CRNP MTDD
[2019-05-07] MEDS: LIPITOR PO SCH (20:36)
[2019-05-07] MEDS ORDERED: NORVASC PO SCH (21:00)
[2019-05-08] MEDS: HUMALOG SUBQ SCH ×4 (06:08→20:26)
[2019-05-08] MEDS: PRILOSEC PO SCH (06:08)
[2019-05-08 06:57] LABS: AGAP 12; BUN 17 mg/dL (8-22); CHLORIDE 98 mmol/L (98-107); COSMO 278; CREATININE 0.9 mg/dL (0.5-0.9); ESTIMATED GFR > 60; GLUCOSE 249 mg/dL (70-104); POTASSIUM 3.9 mmol/L (3.5-5.1); SODIUM 134 mmol/L (136-145); TCO2 24 mmol/L (25-35)
[2019-05-08] MEDS: FOLTX PO SCH (08:21)
[2019-05-08] MEDS: SYNTHROID PO SCH (08:21)
[2019-05-08] MEDS: ASPIRIN PO SCH (08:21)
[2019-05-08] MEDS: LASIX PO SCH (08:21)
[2019-05-08] MEDS: CENTRUM SILVER PO SCH (08:21)
[2019-05-08] MEDS: VITAMIN D PO SCH (08:22)
[2019-05-08] MEDS: TRICOR PO SCH (08:22)
[2019-05-08] MEDS: NORVASC PO SCH ×2 (08:22→20:27)
[2019-05-08] MEDS: ELIQUIS PO SCH ×2 (08:22→20:27)
[2019-05-08] MEDS: LEVEMIR SUBQ SCH (08:34)
--- NOTE | 2019-05-08 12:11 | PROGRESS NOTE ---
DATE: 05/08/2019 SUBJECTIVE: The patient is sitting, resting comfortably in bed. No changes compared with yesterday. OBJECTIVE: Vitals: Temperature 97.9 degrees, pulse 85, respiratory rate 20, blood pressure 177/87, oxygen saturation 95% on room air. HEENT: Head normocephalic, atraumatic. PERRLA. Neck: Supple. No JVD. No masses. Central trachea. Chest: Clear to auscultation. No wheezing. No rales. Abdomen: Soft, nontender, nondistended. No hepatosplenomegaly. Extremities: No edema. No clubbing. No cyanosis. Neurologic: The patient is alert, she is awake. Her strength is good in the 4 extremities. She is able to recognize color. She is able to say my name and read my name, but she is not able express what she wants, she has expressive aphasia. LABORATORY: Sodium 134, potassium 3.9, chloride 98, bicarbonate 24, BUN 17, creatinine 0.9, glucose 249. Calcium 9. ASSESSMENT AND PLAN: 1. Acute CVA, CT scan of the head showed right occipital lacunar infarct, which is old, although was not present on the prior study and she has severe atherosclerosis, no hemorrhage. MRI cannot be done because she has a pacemaker. Neurology Department on board. Tomorrow hopefully I will do a new CT scan. 2. Elevated troponin, likely due to CVA. She has no complaint of chest pain. Cardiology on board. 3. History of atrial fibrillation, with sick sinus syndrome, and pacemaker implantation. She is on anticoagulation. Continue with same management. 4. Hypertension. I have increased the dose of her amlodipine to see how she does. I will start to decrease the blood pressure slowly. 5. Type 2 diabetes, seems to be stable, but I will add insulin, detemir, which is part of her home medications. 6. Microcytic anemia, seen by Dr. Santos as an outpatient. 7. Diastolic heart failure. Continue with the same management. 8. Hyperlipidemia. Continue with atorvastatin. 9. Deep vein thrombosis prophylaxis. Continue with anticoagulation. 10. Hypothyroidism, stable. Continue with Synthroid. cc: Saúl Ramos MD
[2019-05-08] MEDS: LIPITOR PO SCH (20:27)
[2019-05-09] MEDS: HUMALOG SUBQ SCH ×4 (06:01→20:16)
[2019-05-09] MEDS: PRILOSEC PO SCH (06:02)
[2019-05-09] MEDS: SYNTHROID PO SCH (06:02)
[2019-05-09 06:45] LABS: CALCIUM 9.2 mg/dL (8.8-10.2); POTASSIUM 3.7 mmol/L (3.5-5.1)
[2019-05-09] MEDS: TRICOR PO SCH (08:15)
[2019-05-09] MEDS: NORVASC PO SCH ×2 (08:15→20:16)
[2019-05-09] MEDS: ASPIRIN PO SCH (08:15)
[2019-05-09] MEDS: ELIQUIS PO SCH ×2 (08:15→20:15)
[2019-05-09] MEDS: CENTRUM SILVER PO SCH (08:15)
[2019-05-09] MEDS: VITAMIN D PO SCH (08:15)
[2019-05-09] MEDS: LASIX PO SCH (08:15)
[2019-05-09] MEDS: LEVEMIR SUBQ SCH (08:15)
[2019-05-09] MEDS: FOLTX PO SCH (08:15)
[2019-05-09] MEDS: AMARYL PO SCH ×2 (08:47→20:15)
[2019-05-09] MEDS: APRESOLINE PO SCH ×4 (08:47→16:58)
--- NOTE | 2019-05-09 09:32 | PROGRESS NOTE ---
DATE: 05/09/2019 SUBJECTIVE: The patient is sitting and resting comfortably in bed. She is eating by herself. Family members at the bedside. She is answering to some of my questions. It looks like she is finding words better now, not all of them though. She is following commands. I do not see any new issues. I have placed this patient back on all of her home medications for diabetes and also I will add hydralazine to her medications. OBJECTIVE: Vital Signs: Temperature 97.7 degrees, pulse 77, respiratory rate 18, blood pressure 167/83, oxygen saturation 95% on room air. HEENT: Head normocephalic. No trauma. PERRLA. Neck: Supple. No JVD. No masses. Central trachea. Chest: Clear to auscultation. No wheezing. No rales. Abdomen: Soft, nontender, nondistended. No hepatosplenomegaly. Extremities: No edema, no clubbing, no cyanosis. Neurological Examination: The patient is alert. She is awake. Her strength is good in the 4 extremities. She is able to recognize colors. She is following commands. She is able to read my name and she has been feeling better. Now, she seems to be finding more words and she is able express what she wants now, but not all the time. She has some expressive aphasia. Laboratory: Sodium 141, potassium 3.7, chloride 101, bicarbonate 26, BUN 20, creatinine 1, glucose 214, calcium 9.2. ASSESSMENT AND PLAN: 1. Acute cerebrovascular accident. CT scan of the head showed a right occipital lacunar infarct which is old, although was not present on the prior study. Also, she has severe atherosclerosis. No hemorrhage. MRI cannot be done because she has a pacemaker. Neurology department is on board. I will ask for a new CT scan today. 2. Elevated troponin, likely due to cerebrovascular accident. She has no complaints of chest pain. Cardiology on board. 3. History of atrial fibrillation and sick sinus syndrome, and pacemaker implantation. She is on anticoagulation. Continue with the same management. 4. Hypertension. I have increased the dose of amlodipine and now I put her on a low dose of hydralazine. Let us see how she does with that. We will try to keep the blood pressure under control. 5. Type 2 diabetes. I have restarted all her home medications today. We will continue to monitor. 6. Microcytic anemia, followed by Dr. Santos as an outpatient. 7. Diastolic heart failure. Continue with the same management. 8. Hyperlipidemia. Continue with atorvastatin. 9. Deep vein thrombosis prophylaxis. Continue with anticoagulation. 10. Hypothyroidism, stable. Continue with Synthroid. cc: Saúl Ramos MD
[2019-05-09] MEDS: GLUCOPHAGE PO SCH (16:14)
--- NOTE | 2019-05-09 18:33 | Diag Imaging Result Doc PS360 ---
EXAM: CT HEAD W/O CONTRAST HISTORY: stroke TECHNIQUE: CT head without contrast COMPARISON: 05/05/2019 FINDINGS: No parenchymal hemorrhage. No epidural or subdural hematoma. No subarachnoid hemorrhage. Old right occipital infarct. New 13 mm hypodense area in the left parietal lobe. Severe atherosclerosis. No mass identified on this noncontrasted exam. No hydrocephalus. No sinus opacification. IMPRESSION: 1.No hemorrhage 2.Subacute left parietal infarct not present on the prior exam This exam was performed using automated exposure control, adjustment of mA or kV according to patient size, and/or use of iterative reconstruction technique. Electronically signed by Mustapha Reynoso 05/09/2019 6:29 PM
[2019-05-09] MEDS: LIPITOR PO SCH (20:15)
[2019-05-10] MEDS: SYNTHROID PO SCH (06:25)
[2019-05-10] MEDS: PRILOSEC PO SCH (06:25)
[2019-05-10] MEDS: HUMALOG SUBQ SCH ×2 (06:25→11:27)
[2019-05-10 07:54] LABS: BASO# 0.03 X1000 (0.0-0.2); BASO% 0.4 % (0.0-0.8); EOS# 0.44 X1000 (0.0-0.7); EOS% 6.3 % (0.0-10.0); HEMATOCRIT 37.4 % (37.0-47.0); HEMOGLOBIN 11.2 g/dL (12.0-16.0); IMM GRAN# 0.02 X1000 (0.0-0.04); IMM GRAN% 0.3 % (0.0-0.5); LYMPH# 1.65 X1000 (1.2-3.4); LYMPH% 23.6 % (20.5-51.1); MCH 24.1 PG (27-31); MCHC 29.9 g/dL (33-37); MCV 80.4 FL (81-99); MONO# 0.68 X1000 (0.11-0.59); MONO% 9.7 % (1.7-9.3); MPV 10.4 FL (7.4-10.4); NEUT# 4.16 X1000 (1.4-6.5); NEUT% 59.7 % (42.2-75.2); PLT 321 X1000 (130-400); RBC 4.65 XMIL (4.2-5.4); RDW 24.7 % (11.5-14.5); WBC 6.98 X1000 (4.8-10.8)
[2019-05-10 08:03] LABS: CALCIUM 9.6 mg/dL (8.8-10.2); CREATININE 1.1 mg/dL (0.5-0.9); POTASSIUM 4.2 mmol/L (3.5-5.1)
[2019-05-10 08:08] LABS: ANISOCYTOSIS 2+; EOS 4 % (1-10); LYMPHS 24 % (21-51); MONO 12 % (1-9); SEGS 58 % (42-75)
[2019-05-10] MEDS: VITAMIN D PO SCH (08:13)
[2019-05-10] MEDS: APRESOLINE PO SCH (08:13)
[2019-05-10] MEDS: AMARYL PO SCH (08:13)
[2019-05-10] MEDS: ASPIRIN PO SCH (08:14)
[2019-05-10] MEDS: LASIX PO SCH (08:14)
[2019-05-10] MEDS: NORVASC PO SCH (08:14)
[2019-05-10] MEDS: FOLTX PO SCH (08:14)
[2019-05-10] MEDS: LEVEMIR SUBQ SCH (08:14)
[2019-05-10] MEDS: TRICOR PO SCH (08:14)
[2019-05-10] MEDS: GLUCOPHAGE PO SCH (08:14)
[2019-05-10] MEDS: CENTRUM SILVER PO SCH (08:14)
[2019-05-10] MEDS: ELIQUIS PO SCH (08:14)
[2019-05-10] MEDS ORDERED: CATAPRES PO PRN (11:33)
--- NOTE | 2019-05-10 12:15 | Carotid Study ---
DATE: 05/06/2019 TEACHER LIP READING: Thomas. REQUESTING PHYSICIAN: CLINT Polk. INDICATION: CVA. EXAM FOR COMPARISON: CT of the head without contrast on 05/06/2019. FINDINGS: In the cervical portion of the bilateral carotid arteries, there are no significant atherosclerotic changes noted. The velocities are in the 0% to 39% range with antegrade vertebrals bilaterally. IMPRESSION: No hemodynamically significant lesion noted in the bilateral carotid arteries. cc: MD Andriy Hung CRNP
--- NOTE | 2019-05-10 12:45 | DISCHARGE SUMMARY ---
ADMISSION DATE: 05/06/2019 DISCHARGE DATE: DISCHARGE DIAGNOSES: 1. Stroke located in the left parietal area. 2. Hypertension. 3. Dyslipidemia. 4. Diabetes. 5. Elevated troponins, likely due to cerebrovascular accident. 6. Microcytic anemia. 7. Diastolic heart failure. 8. Hypothyroidism. 9. History of atrial fibrillation and sick sinus syndrome, status post pacemaker placement, on chronic anticoagulation. PROCEDURES PERFORMED: 1. Chest x-ray dated 05/05/2019, impression: Stable mild interstitial thickening and a questionable trace left effusion. 2. Head CT scan dated 05/05/2019, impression: No hemorrhage, chronic microvascular ischemic changes, right occipital lacunar infarct which is old, although was not present on the prior study. Severe atherosclerosis in the distal internal carotid arteries, vertebral arteries, basilar artery, and middle cerebral arteries. 3. Echocardiogram dated 05/06/2019, impression: Ejection fraction 55% to 60%. No masses or thrombus. 4. Head CT scan dated 05/09/2019, impression: No hemorrhage, subacute left parietal infarct not present on the prior exam. 5. Carotid ultrasound dated 05/07/2019 showed 0% to 39% stenosis. Apparently, no problems. CONSULTS: 1. Neurology Department, Dr. Kelly. 2. Cardiology Department, Dr. Jace Bruner. HOSPITAL COURSE: A 73-year-old female with a past medical history of paroxysmal atrial fibrillation on Eliquis, history of sick sinus syndrome status post pacemaker implantation, coronary artery disease, diastolic heart failure, chronic kidney disease, massive abdominal hernia with ileostomy placement secondary to small-bowel obstruction, diabetes, hypertension, hypothyroidism, morbid obesity, GERD, iron-deficiency anemia for which she received infusion from Dr. Tri Santos, and recurrent DVT, admitted on 05/06/2019. It looks like on the day of admission, around 2 p.m., the best the family can tell, she started having total expressive aphasia, and she, for the most part, could not speak at all. She would laugh and appear to be alert and oriented. However, she cannot find or say any words. She also presented with some right-sided weakness, which is much better now. No facial asymmetry. CT scan did not show any acute changes. Apparently, a right occipital lacunar infarct which is old, although was not present on her prior study. The CT scan has been repeated a few days ago, and now is showing a subacute left parietal infarct that was not present on the prior exam. We allowed permissive hypertension on this patient, and also her troponins were elevated. Cardiology Department evaluated this patient, and likely this is because of the CVA. Dr. Jace Bruner recommended to increase the dose of the Eliquis from 2.5 to 5. Her blood pressure then, after a couple days, we started to try to decrease it slowly. She used to take amlodipine once a day at home, and I increased it to twice a day, and also I added hydralazine to her medications. As per the son, her blood pressure at home is always good, and her heart rate has been always in the 60s, but during this hospitalization, the blood pressure has been higher and closer to the 190s. After starting treatment, her blood pressure has been around 140s to 150s, and sometimes elevated. She was transferred to the medical floor, and it looks like she has some kind of stress because of that. She has another patient in the room, and this patient has been having problems during the night, and she has not been resting well. I do believe upon discharge, the blood pressure is going to get better with this treatment. I recommended though to follow up with her primary doctor in 1 week, and I talked to her [id number] about it. She states that she will make an appointment. I also talked by phone with her son. This patient has been improving on a daily basis. She has been able to ambulate. I think she is close to her baseline, and she has been recovering slowly her speech. No problems swallowing. Today, she was able to form more words, and she is always making sense. She will be discharged today to a rehab center, and hopefully she will get much better. I have recommended to the rehab center to monitor closely the blood sugar and the blood pressure. I added p.r.n. blood pressure medication. PHYSICAL EXAMINATION: Vital Signs: Temperature 98.1 degrees, pulse 82, respiratory rate 14, blood pressure 140/55, and repeated blood pressure a few hours later was 182/73, oxygen saturation 97% on room air. HEENT: Head normocephalic. No trauma. PERRLA. Neck: Supple. No JVD. No masses. Central trachea. Chest: Clear to auscultation. No wheezing. No rales. Abdomen: Soft. Extremities: No edema, no clubbing, no cyanosis. Neurological: The patient is alert. She is awake. Her strength is good in all 4 extremities. She is able to recognize colors. She is following commands. She is able to read my name, and she is feeling better. She is able to find her words better now, and she is expressing herself better as well. She may have some expressive aphasia still. LABORATORY DATA: WBC 6.9, hemoglobin 11.2, hematocrit 37.4, platelets 321,000. Sodium 138, potassium 4.2, chloride 99, bicarbonate 29, BUN 20, creatinine 1.1, glucose 217, calcium 9.6. DISCHARGE MEDICATIONS: 1. Albuterol 3 mL inhaler every 2 hours as needed. 2. Albuterol sulfate 1 to 2 inhaler daily as needed. 3. Amlodipine 5 mg p.o. b.i.d. 4. Eliquis 5 mg p.o. b.i.d. 5. Aspirin 81 mg p.o. daily. 6. Atorvastatin 80 mg p.o. at bedtime. 7. Vitamin D3, 5000 units p.o. daily. 8. Clonidine 0.1 mg p.o. b.i.d. as needed for elevated blood pressure more than 180 systolic. 9. Folbic tablet 2 mg p.o. daily. 10. Fenofibrate 160 mg p.o. every a.m. 11. Flonase as needed. 12. Furosemide 20 mg p.o. daily. 13. Glimepiride 4 mg p.o. b.i.d. 14. Hydralazine 25 mg p.o. t.i.d. 15. Levemir 40 units subcutaneously daily. 16. Synthroid 200 mcg p.o. daily. 17. Loperamide 2 mg p.o. every a.m. as needed. 18. Metformin 500 mg p.o. b.i.d. 19. Centrum Silver 1 tablet p.o. daily. 20. [place]-3 fatty acids 1 capsule p.o. b.i.d. 21. Pantoprazole 40 mg p.o. daily. TIME SPENT: Time discharging this patient and discussing with the family member at the bedside and by phone was around 30 minutes. cc: Saúl Ramos MD
[2019-05-10] MEDS ORDERED: APRESOLINE PO SCH (13:00)
[2019-05-10 14:09] VITALS: BP 189/80
== END 2019-05-10 14:58 | DRG 64 ==
LOC: ED 21:03 → 2N 05-06 00:16 → SUATTDRO 05-06 00:16 → 3N 05-09 21:32
PROVIDERS: ATTEND Internal Medicine

== ENCOUNTER 2019-05-22 14:15 | Inpatient (IN) ==
[2019-06-01 08:12] VITALS: BP 149/51
== END 2019-06-01 12:35 | DRG 314 ==
LOC: DIRADM 14:15 → SUATTDRO 14:15 → EDIPHOLD 17:36 → 2N 18:19
PROVIDERS: ATTEND Internal Medicine